=== PATIENT | male | born 1975 | race Caucasian/White ===

== ENCOUNTER 2017-08-22 12:18 | Inpatient (IN) | payer MEDICAID, OTHER ==
[2017-08-22] MEDS ORDERED: NS 1,000 ML IV ONE (12:38)
--- NOTE | 2017-08-22 12:38 | EDPHY ---
H & P Stated Complaint: sent by MD for leukemia treatment Time Seen by Provider: 08/22/17 12:30 HPI/ROS: CHIEF COMPLAINT: [ ] HISTORY OF PRESENT ILLNESS: [Need 4: Location, Duration, Severity, Quality, Context, Timing Modifying Factors, Associated S&S] REVIEW OF SYSTEMS: A comprehensive 10 point review of systems is otherwise negative aside from elements mentioned in the history of present illness. Source: Patient - Personal History Current Tetanus/Diphtheria Vaccine: Unsure Current Tetanus Diphtheria and Acellular Pertussis (TDAP): Unsure - Medical/Surgical History Hx Asthma: No Hx Chronic Respiratory Disease: No Hx Diabetes: No Hx Cardiac Disease: No Hx Renal Disease: No Hx Cirrhosis: No Hx Alcoholism: No Hx HIV/AIDS: No Hx Splenectomy or Spleen Trauma: No Other PMH: leukemia - Social History Smoking Status: Current some day smoker - Physical Exam Exam: General Appearance: [Alert, no distress] Eyes: [Pupils equal and round no pallor or injection] ENT, Mouth: [Mucous membranes moist] Respiratory: [There are no retractions, lungs are clear to auscultation] Cardiovascular: [Regular rate and rhythm] Gastrointestinal: [Abdomen is soft and nontender, no masses, bowel sounds normal] Neurological: [A&O, normal motor function, normal sensory exam, normal cranial nerves] Skin: [Warm and dry, no rashes] Musculoskeletal: [Neck is supple nontender] Extremities: [symmetrical, full range of motion] Psychiatric: [Patient is oriented X 3, there is no agitation] Constitutional: Initial Vital Signs Temperature (C) 37.2 C 08/22/17 12:25 Heart Rate 107 H 08/22/17 12:25 Respiratory Rate 20 08/22/17 12:25 Blood Pressure 118/83 H 08/22/17 12:25 O2 Sat (%) 99 08/22/17 12:25 O2 Delivery Mode Room Air Allergies/Adverse Reactions: No Known Allergies Allergy (Unverified 08/22/17 12:23) Home Medications: Medication Instructions Recorded Allopurinol 08/22/17 levOFLOXACIN 08/22/17 oxyCODONE CR 08/22/17
[2017-08-22 13:01] LABS: ABSOLUTE NRBC COUNT 0.09 10^3/uL (0-0.01); ADD DIFF? YES; ADD MORPH? YES; ATYPICAL LYMPHOCYTE FLAG 0 (0-99); FRAGMENT RBC FLAG 0 (0-99); HEMATOCRIT 23.9 % (40.0-51.0); HEMOGLOBIN 8.5 g/dL (13.7-17.5); LEFT SHIFT FLG 0 (0-99); LIPEMIA HEMOLYSIS FLAG 90 (0-99); MEAN CELL HEMOGLOBIN CONCENTR. 35.6 g/dL (32.4-36.7); MEAN CELL VOLUME 98.4 fL (81.5-99.8); MEAN PLATELET VOLUME 9.1 fL (8.7-11.7); PLATELET CLUMPS FLAG 0 (0-99); PLATELET COUNT 138 10^3/uL (150-400); RED BLOOD CELL COUNT 2.43 10^6/uL (4.40-6.38); RED CELL DISTRIBUTION WIDTH 15.2 % (11.5-15.2)
[2017-08-22 13:03] LABS: ADD SCAN? NO; NRBC-AUTO% 1.4 % (0.0-0.2)
[2017-08-22 13:17] LABS: ALANINE AMINOTRANSFERASE 33 IU/L (21-72); ALKALINE PHOSPHATASE 97 IU/L (38-126); ANION GAP 15 mEq/L (8-16); ASPARTATE AMINOTRANSFERASE 18 IU/L (17-59); BILIRUBIN,TOTAL 0.3 mg/dL (0.1-1.4); BILIRUBIN-CONJUGATED 0.2 mg/dL (0.0-0.5); BILIRUBIN-UNCONJUGATED 0.1 mg/dL (0.0-1.1); CALCIUM 9.3 mg/dL (8.5-10.4); CARBON DIOXIDE 24 mEq/l (22-31); CHLORIDE 101 mEq/L (97-110); CREATININE 1.1 mg/dL (0.7-1.3); GLOMERULAR FILTRATION RATE > 60; GLUCOSE 113 mg/dL (70-100); POTASSIUM 4.1 mEq/L (3.5-5.2); SODIUM 140 mEq/L (134-144); TOTAL PROTEIN 7.9 g/dL (6.3-8.2)
[2017-08-22 13:34] LABS: HYPOCHROMIA 2+; PLATELET ESTIMATE DECREASED (ADEQ)
[2017-08-22 13:54] LABS: INR 1.1 (0.83-1.16); PROTIME(PATIENT) 14.1 SEC (12.0-15.0)
[2017-08-22 13:55] LABS: APTT 31.7 SEC (23.0-38.0)
--- NOTE | 2017-08-22 14:23 | EDPHY ---
H & P Stated Complaint: sent by for leukemia treatment Time Seen by Provider: 08/22/17 12:30 HPI/ROS: CHIEF COMPLAINT: Fever, history of leukemia HISTORY OF PRESENT ILLNESS: The patient is referred to the emergency department by the on-call oncologist for evaluation of fever. The patient is a 42-year-old gentleman who was recently diagnosed with AML. 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 The patient developed a fever of 101.5 degrees at home. He had no symptoms of an acute cough, dysuria, vomiting or diarrhea. The patient denies any acute pain. The patient has had a past medical history significant for low back pain. The patient has had this evaluated by a spine service without significant pathology noted on MRI by his report. The patient denies any acute rash or arthralgias. REVIEW OF SYSTEMS: A comprehensive 10 point review of systems is otherwise negative aside from elements mentioned in the history of present illness. Source: Patient - Personal History Current Tetanus/Diphtheria Vaccine: Unsure Current Tetanus Diphtheria and Acellular Pertussis (TDAP): Unsure - Medical/Surgical History Hx Asthma: No Hx Chronic Respiratory Disease: No Hx Diabetes: No Hx Cardiac Disease: No Hx Renal Disease: No Hx Cirrhosis: No Hx Alcoholism: No Hx HIV/AIDS: No Hx Splenectomy or Spleen Trauma: No Other PMH: leukemia - Social History Smoking Status: Current some day smoker - Physical Exam Exam: General Appearance: Alert, no distress Eyes: Pupils equal and round no pallor or injection ENT, Mouth: Mucous membranes moist Respiratory: There are no retractions, lungs are clear to auscultation Cardiovascular: Regular rate and rhythm Gastrointestinal: Abdomen is soft and nontender, no masses, bowel sounds normal Neurological: A&O, normal motor function, normal sensory exam, normal cranial nerves Skin: Warm and dry, no rashes, no erythema or cellulitis surrounding bone marrow biopsy site Musculoskeletal: Neck is supple nontender Extremities: symmetrical, full range of motion Constitutional: Initial Vital Signs Temperature (C) 37.2 C 08/22/17 12:25 Heart Rate 107 H 08/22/17 12:25 Respiratory Rate 20 08/22/17 12:25 Blood Pressure 118/83 H 08/22/17 12:25 O2 Sat (%) 99 08/22/17 12:25 O2 Delivery Mode Room Air Allergies/Adverse Reactions: No Known Allergies Allergy (Unverified 08/22/17 12:23) Home Medications: Medication Instructions Recorded Allopurinol [Allopurinol 300 MG 300 mg PO DAILY 08/22/17 (RX)] levOFLOXACIN [levAQUIN (*)] 500 mg PO DAILY 08/22/17 oxyCODONE IR [Oxycodone Ir (*)] 5 mg PO .Q3-4H PRN 08/22/17 Medical Decision Making - Diagnostics Imaging Results: Imaging Impressions Chest X-Ray 08/22/17 12:38 Impression: Normal chest. ED Course/Re-evaluation: The patient presents to the ED with fever in the setting of recently diagnosed AML. The patient was seen in consultation by Dr. Powell from Oncology. The patient will be admitted to the hospital by Dr. Dorsey from the hospitalist service. In the emergency department, the patient had blood cultures x2 obtained. The patient has been taking Levaquin on a daily basis which will be continued at the recommendation of his oncologist. The patient's chest x-ray demonstrates no evidence of pneumonia. Urinalysis demonstrates no evidence of an infection, urine microscopy currently pending. 2:45 p.m.: The patient will be admitted to a medical-surgical floor under the care of the hospitalist service. Differential Diagnosis: Differential diagnosis considered includes neutropenic fever, pneumonia, urinary tract infection, bacteremia - Data Points Laboratory Results: Laboratory Results 08/22/17 12:45 08/22/17 12:45 08/22/17 08/22/17 08/22/17 12:45 12:45 12:45 WBC 6.36 10^3/uL 10^3/uL (3.80-9.50) RBC 2.43 10^6/uL L 10^6/uL (4.40-6.38) Hgb 8.5 g/dL L g/dL (13.7-17.5) Hct 23.9 % L % (40.0-51.0) MCV 98.4 fL fL (81.5-99.8) MCH 35.0 pg H pg (27.9-34.1) MCHC 35.6 g/dL g/dL (32.4-36.7) RDW 15.2 % % (11.5-15.2) Plt Count 138 10^3/uL L 10^3/uL (150-400) MPV 9.1 fL fL (8.7-11.7) Neut % (Auto) Not Reported Lymph % (Auto) Not Reported [place] % (Auto) Not Reported Eos % (Auto) Not Reported Baso % (Auto) Not Reported Nucleat RBC Rel Count 1.4 % H % (0.0-0.2) Absolute Neuts (auto) Not Reported Absolute Lymphs (auto) Not Reported Absolute Monos (auto) Not Reported Absolute Eos (auto) Not Reported Absolute Basos (auto) Not Reported Absolute Nucleated RBC 0.09 10^3/uL H 10^3/uL (0-0.01) Immature Gran % Not Reported Seg Neutrophils % 2 % % Lymphocytes % 59 % % Metamyelocytes % 1 % % Blast Cells % 38 % % Immature Gran # Not Reported Absolute Seg Neuts 0.13 10^/uL L 10^/uL (1.70-6.50) Absolute Lymphocytes 3.75 10^3/uL H 10^3/uL (1.00-3.00) Absolute Metamyelocyte 0.06 10^3/mL H 10^3/mL (0.00-0.00) Nucleated RBCs 1 /100 WBC H /100 WBC (0-0) Absolute Blast Cells 2.42 10^3/uL H 10^3/uL (0.00-0.00) Platelet Estimate DECREASED L (ADEQ) Hypochromasia 2+ H Smear Review By Pending PT 14.1 SEC SEC (12.0-15.0) INR 1.10 (0.83-1.16) APTT 31.7 SEC SEC (23.0-38.0) VBG Lactic Acid Sodium 140 mEq/L mEq/L (134-144) Potassium 4.1 mEq/L mEq/L (3.5-5.2) Chloride 101 mEq/L mEq/L (97-110) Carbon Dioxide 24 mEq/l mEq/l (22-31) Anion Gap 15 mEq/L mEq/L (8-16) BUN 17 mg/dL mg/dL (7-23) Creatinine 1.1 mg/dL mg/dL (0.7-1.3) Estimated GFR > 60 Glucose 113 mg/dL H mg/dL (70-100) Calcium 9.3 mg/dL mg/dL (8.5-10.4) Total Bilirubin 0.3 mg/dL mg/dL (0.1-1.4) Conjugated Bilirubin 0.2 mg/dL mg/dL (0.0-0.5) Unconjugated Bilirubin 0.1 mg/dL mg/dL (0.0-1.1) AST 18 IU/L IU/L (17-59) ALT 33 IU/L IU/L (21-72) Alkaline Phosphatase 97 IU/L IU/L (38-126) Total Protein 7.9 g/dL g/dL (6.3-8.2) Albumin 4.0 g/dL g/dL (3.5-5.0) 08/22/17 12:45 WBC RBC Hgb Hct MCV MCH MCHC RDW Plt Count MPV Neut % (Auto) Lymph % (Auto) Rusk % (Auto) Eos % (Auto) Baso % (Auto) Nucleat RBC Rel Count Absolute Neuts (auto) Absolute Lymphs (auto) Absolute Monos (auto) Absolute Eos (auto) Absolute Basos (auto) Absolute Nucleated RBC Immature Gran % Seg Neutrophils % Lymphocytes % Metamyelocytes % Blast Cells % Immature Gran # Absolute Seg Neuts Absolute Lymphocytes Absolute Metamyelocyte Nucleated RBCs Absolute Blast Cells Platelet Estimate Hypochromasia Smear Review By PT INR APTT VBG Lactic Acid 1.2 mmol/L mmol/L (0.7-2.1) Sodium Potassium Chloride Carbon Dioxide Anion Gap BUN Creatinine Estimated GFR Glucose Calcium Total Bilirubin Conjugated Bilirubin Unconjugated Bilirubin AST ALT Alkaline Phosphatase Total Protein Albumin Medications Given: Discontinued Medications Sodium Chloride (Ns) 1,000 mls @ 0 mls/hr IV ONCE ONE; Wide Open PRN Reason: Protocol Stop: 08/22/17 12:39 Last Admin: 08/22/17 13:15 Dose: 1,000 mls Departure - Departure Disposition: [facility] Inpatient Acute Clinical Impression: Neutropenic fever, Acute myeloid leukemia Condition: Fair
--- NOTE | 2017-08-22 14:26 | GCON ---
[f rep st] CONSULTATION NEW PATIENT CONSULT DATE OF CONSULTATION: 08/22/2017 REFERRING PHYSICIAN: Radha Dorsey MD REASON FOR ADMISSION: Acute myeloid leukemia. HISTORY OF PRESENT ILLNESS: The patient is a very pleasant 42-year-old man who was initially evaluated by Dr. Simon Winn on 08/20/2017 due to abnormal blood counts. Specifically, elevated blasts in his peripheral smear. He reported that, although he has been suffering from low back pain for many years , this has become more severe recently and was evaluated by his PCP with some additional blood work. Notably, MRI of his low back was negative per patient. Unfortunately, his peripheral blood smear showed anemia, leukopenia and 40% blasts at that time. The patient then saw Simon Winn and had a bone marrow biopsy, the flow cytometry of which confirms acute myeloid leukemia. His AML fish was negative but molecular testing is still pending. Simon Winn was planning on electively admitting this patient. this coming Thursday as he was very stable, however, he called me early this morning complaining of a fever of 101. The patient did take some Tylenol which brought the fever down and he feels well and denies any specific infectious symptoms. Specifically, he denies any cough, shortness of breath, bleeding, bruising, abdominal pain, dysuria or mouth sores. He is in very good health otherwise. His CBC today shows a white blood cell count of 6.36, ANC pending but previously was less than 300, hemoglobin 8.5, hematocrit 23.9, platelet count of a 138,000. All the other labs from today are pending. Patient has been taking allopurinol and Levaquin at home but otherwise has been taking oxycodone for his low back pain. PAST MEDICAL AND SURGICAL HISTORY: Unremarkable. Most recent MRI [facility] apparently showed no fracture other concerning findings. REVIEW OF SYSTEMS: As per HPI. Otherwise negative. FAMILY HISTORY: Pertinent for a fraternal grandmother with leukemia which she from. Maternal grandmother with a solid malignancy. SOCIAL HISTORY: Smokes cigarettes and marijuana occasionally. Drinks heavily on the weekends but has not had a drink in a few days. He lives with a roommate. 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 He does not have insurance. PHYSICAL EXAM: VITAL SIGNS: Currently show blood pressure 118/83, pulse of 107 respiration rate 20, O2 saturation 99% on room air, temperature 37.2. GENERAL: A young gentleman not in acute distress. Slightly pale appearing. HEENT: Anicteric. Oropharynx is clear. NECK: Supple. No cervical or supraclavicular lymphadenopathy. HEART: Sightly tachycardic, no rubs, murmurs or gallops. CHEST: Clear to auscultation bilaterally. ABDOMEN: Soft, nontender. Bowel sounds positive. No enlarged spleen or liver. LOWER EXTREMITIES: No edema. SKIN: No rash. NEUROLOGIC: Nonfocal, moving all extremities. LABS: As mentioned above. I will note his outpatient labs show him to be negative for hepatitis B, hepatitis C and HIV. His LDH was not initially elevated and his uric acid was also within normal limits. IMAGING: He is pending a chest x-ray here today. ASSESSMENT AND PLAN: A 42-year-old gentleman with newly diagnosed acute myeloid leukemia being admitted due to neutropenic fever and will initiate induction chemotherapy. 1. Neutropenic fever. Either due to the underlying bone marrow process or infection. He is getting blood cultures x2, urinalysis and chest x-ray. He has been empirically covered with Levaquin 500 daily which I will continue. Will also add fluconazole 200 mg daily and acyclovir 400 mg p.o. twice daily, to cover for fungal and viral infections respectively. Currently, he has no evidence of sepsis and is very stable. Will continue to monitor and broaden coverage as needed. 2. Acute myeloid leukemia, newly diagnosed. Admitted for induction chemotherapy with 7 + 3. He will get cytarabine infused over the next 7 days and idarubicin over the next 3 days. Premeds for nausea & infusion reactions were written for today. We will follow him closely for tumor lysis syndrome and other lab abnormalities going forward. Any blood products required going orward need to be irradiated and initially CMV-negative, although I am checking his CMV titers today. Would not transfuse unless hemoglobin 7 or less or patient has symptoms. Would not transfuse platelets unless less than 10 or bleeding. Will get a PICC line placed today and echocardiogram to evaluate his baseline ejection fraction . His chemotherapy orders were written for and we will obtain consent. Briefly, I discussed side effects of chemotherapy with him which include, but not limited to, nausea, vomiting, myelosuppression, risk for opportunistic infections, alopecia, fatigue and cardiomyopathy as well as chemotherapy- induced bone marrow disorders. The patient agrees with the plan going forward. He declined sperm banking. We will continue to follow him very closely. He will be admitted as in an inpatient for the next few weeks. 3. Deep vein thrombosis prophylaxis. Initially, should go ahead and give Lovenox 40 subcutaneously daily, but will watch platelets closely and would hold if they drop significantly (<50k) The patient is in agreement with plan. Hope to get chemotherapy, cycle 1, day 1 , initiated tomorrow, 08/23/2017. /[id number]/MODL MTDD
[2017-08-22] MEDS ORDERED: oxyCODONE IR 5 MG TAB PO PRN ×2 (14:29→15:23)
[2017-08-22 14:45] LABS: COLOR YELLOW; LEUKOCYTE ESTERASE,URINE NEGATIVE (NEGATIVE); NITRITE,URINE NEGATIVE (NEGATIVE)
[2017-08-22 14:47] LABS: MUCUS 1+ /lpf (NONE-1+)
[2017-08-22] MEDS ORDERED: ALLOPURINOL 300 MG TAB PO SCH (15:00)
[2017-08-22 16:04] LABS: LACTATE DEHYDROGENASE 429 IU/L (313-618); URIC ACID 5.1 mg/dL (3.5-8.5)
[2017-08-22] MEDS: FLUCONAZOLE 100 MG TAB PO SCH (16:06)
[2017-08-22] MEDS: oxyCODONE IR 5 MG TAB PO PRN ×3 (16:07→22:57)
[2017-08-22] MEDS: ALLOPURINOL 300 MG TAB PO SCH (16:07)
--- NOTE | 2017-08-22 16:28 | GHP ---
[f rep st] HISTORY AND PHYSICAL DATE OF ADMISSION: 08/22/2017 CHIEF COMPLAINT: Fever. HISTORY: The patient is a 42-year-old male who had a bone marrow biopsy with Dr. Winn 2 days ago and was diagnosed with AML. Plan was for admission on Thursday for elective induction of chemotherapy . However, last night he had a high fever to 101 and so instead has presented through the emergency room to be admitted and chemotherapy likely to be initiated during this hospitalization. He has really been feeling unwell for a few weeks. Had a sinus infection and a strep throat would no t go way. Also had acute on chronic low back pain. Eventually his primary care doctor checked some labs and found him to have 40% blasts. He had an MRI of the spine that was negative. Last night he had a fever to 101 and had some associated chills. This is not the first time he has f elt chills like that, but he was monitoring it more closely since he just had the bone marrow biopsy and monitoring for fever was on the discharge instructions. He checked his fever at home, measured a t 101. He is otherwise without complaints at this time. PAST MEDICAL HISTORY: Negative. MEDICATIONS: None. ALLERGIES: No known drug allergies. SOCIAL HISTORY: Occasional tobacco, occasional marijuana. Drinks alcohol on the weekends. Lives wi th a roommate. 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 REVIEW OF SYSTEMS: A complete review of systems was obtained. Review of systems is negative regardi ng constitutional, HEENT, GI, pulmonary, cardiovascular, , hematology, skin, musculoskeletal, endoc rine, psych except for positives and negatives as otherwise noted in the HPI. FAMILY HISTORY: Paternal grandmother with leukemia. PHYSICAL EXAMINATION: GENERAL: Well-developed, well-nourished male, in no acute distress. VITAL SI GNS: Temperature 37.2, pulse 107, blood pressure 118/83, saturating 99% room air. HEENT: Eyes: No rmal conjunctivae. Pupils react to light. ENT: Normal ears and nose. Hearing intact. Normal lips and teeth. Oropharynx moist. NECK: Trachea midline. No thyromegaly. CHEST: Normal respiratory effort. Lungs clear to auscultation bilaterally. CARDIOVASCULAR: Regular rhythm. No murmur. No low er extremity edema. ABDOMEN: Soft, nontender. No hepatosplenomegaly. SKIN: Warm, dry, intact. N o rash. MUSCULOSKELETAL: No cyanosis or clubbing. Strength 5/5 upper and lower extremities. NEURO LOGIC: Cranial nerves intact. Normal sensation to light touch. PSYCH: Alert and oriented x3. Norm al affect. Normal judgment and insight. Normal memory. LABORATORY: White count 6.36, hematocrit 23.9, platelets 138. Sodium 140, potassium 4.1, chloride 1 01, bicarb 24, BUN 17, creatinine 1.1, glucose 113. LFTs are negative. Urinalysis negative. Lacta te 1.2. Chest x-ray is negative. This case was discussed with Dr. Ginny Powell of Oncology. She has arrang ed for initiation of chemotherapy. ASSESSMENT/PLAN: 1. Neutropenic fever. Blood cultures x2 have been sent. Per Dr. Powell continue Levaquin plus fl uconazole plus acyclovir. 2. AML, new diagnosis. Induction chemotherapy to initiate. Will watch for signs of tumor lysis syn drome and continue allopurinol. Any blood transfusions he gets should be CMV negative irradiated blo od. A baseline echocardiogram has been ordered. 3. Deep venous thrombosis prophylaxis. He is low risk. CODE STATUS: Full. ADMISSION STATUS: Will admit to inpatient. Per Oncology anticipated length of hospitalization 3-6 w [facility]. /[id number]/MODL
--- NOTE | 2017-08-22 16:58 | PDMN ---
Medical Necessity Medical necessity: C/M review: Patient meets INPT criteria per MCG under Systemic of infectious condition GRG, M-87 Chemotherapy; Acute neutrapenic fever of unclear etiology, new dx acute myelocytic leukemia requiting planned induction chemotherapy (IV Cytarbine Q 24 hrs. x 7 bags, IV Idarubicin daily x 3 bags), ongoing IV fluids, oral Levaquin, Diflucan. MD anticipates > 2 MN LOS for ongoing med nec for eval and TX of above.
[2017-08-22] MEDS: ACYCLOVIR 400 MG TAB PO SCH (19:51)
[2017-08-22] MEDS: PROCHLORPERAZINE MALEATE 10 MG TAB PO PRN (22:58)
[2017-08-23] MEDS: oxyCODONE IR 5 MG TAB PO PRN ×3 (01:59→12:04)
[2017-08-23 05:19] LABS: ABSOLUTE NRBC COUNT 0.09 10^3/uL (0-0.01); ADD DIFF? YES; ADD MORPH? YES; ATYPICAL LYMPHOCYTE FLAG 10 (0-99); FRAGMENT RBC FLAG 0 (0-99); HEMATOCRIT 20.3 % (40.0-51.0); HEMOGLOBIN 7.2 g/dL (13.7-17.5); LEFT SHIFT FLG 0 (0-99); LIPEMIA HEMOLYSIS FLAG 90 (0-99); MEAN CELL HEMOGLOBIN 35.6 pg (27.9-34.1); MEAN CELL HEMOGLOBIN CONCENTR. 35.5 g/dL (32.4-36.7); MEAN CELL VOLUME 100.5 fL (81.5-99.8); MEAN PLATELET VOLUME 8.9 fL (8.7-11.7); PLATELET CLUMPS FLAG 0 (0-99); PLATELET COUNT 124 10^3/uL (150-400); RED BLOOD CELL COUNT 2.02 10^6/uL (4.40-6.38); RED CELL DISTRIBUTION WIDTH 15.3 % (11.5-15.2)
[2017-08-23 05:23] LABS: NRBC-AUTO% 1.4 % (0.0-0.2)
[2017-08-23 05:24] LABS: ADD SCAN? NO
[2017-08-23 05:28] LABS: ALANINE AMINOTRANSFERASE 36 IU/L (21-72); ALBUMIN 3.6 g/dL (3.5-5.0); ALKALINE PHOSPHATASE 92 IU/L (38-126); ANION GAP 13 mEq/L (8-16); ASPARTATE AMINOTRANSFERASE 17 IU/L (17-59); BILIRUBIN,TOTAL 0.2 mg/dL (0.1-1.4); BILIRUBIN-CONJUGATED 0.1 mg/dL (0.0-0.5); BILIRUBIN-UNCONJUGATED 0.1 mg/dL (0.0-1.1); CALCIUM 8.9 mg/dL (8.5-10.4); CARBON DIOXIDE 23 mEq/l (22-31); CHLORIDE 101 mEq/L (97-110); CREATININE 0.9 mg/dL (0.7-1.3); GLOMERULAR FILTRATION RATE > 60; GLUCOSE 108 mg/dL (70-100); POTASSIUM 4.5 mEq/L (3.5-5.2); SODIUM 137 mEq/L (134-144); TOTAL PROTEIN 7.1 g/dL (6.3-8.2)
[2017-08-23 06:00] LABS: MACROCYTES 1+; POLYCHROMASIA 1+
[2017-08-23 06:01] LABS: PLATELET ESTIMATE DECREASED (ADEQ)
--- NOTE | 2017-08-23 07:52 | ECHO ---
[email or web address] [address] [address] Main: [phone] Fax: Transthoracic Echocardiogram Name: AGNES MASCORRO MR#: [id number] Study Date: 08/22/2017 Study Time: 02:11 PM Date of : 1975 Age: 42 year(s) Height: 172.7 cm (68 in.) Weight: 79.38 kg (175 lb.) BSA: 1.93 m2 Gender: Male Examination: Echo Indication: Acute leukemia starting anthracycline based chemotherapy in am Image Quality: Contrast: Requested by: Ginny Powell BP: / Heart Rate: Rhythm: Indication: Acute leukemia starting anthracycline based chemotherapy in am Procedure Staff Propellant Assembler: Taylor Harris Reading Physician: Joby Lion Requesting Provider: Conclusions: 1)Normal LV size and systolic function with a LVEF of 65% and normal wall motions. 2)Mild diastolic dysfunction noted. 3)Mild left atrial enlargement noted. 4)Mild MR without MV prolapse. 5)Mild TR noted. 6)Mildly enlarged ascending thoracic aorta noted (3.9cm). Measurements: Chambers Valvular Assessment AV/MV Valvular Assessment TV/PV Normal Normal Normal Name Value Range Name Value Range Name Value Range Ao Mecca (MM): 3.9 cm (2.2 cm-3.7 AV meanP mmHg ( - ) TR Vmax: 2.16 mm/s ( - ) cm) MV E Vmax: 0.66 m/s ( - ) TR PGmax: 19 mmHg ( - ) IVSd (2D): 0.9 cm (0.6 cm-1.1 MV A Vmax: 0.42 m/s ( - ) syst. PAP: 24 mmHg ( - ) cm) MV E/A: 1.57 ( - ) LVDd (2D): 5.5 cm (4.2 cm-5.9 cm) LVDs (2D): 3.1 cm (2.1 cm-4 cm) LVPWd (2D): 1.0 cm (0.6 cm-1 cm) LVEF (BP): 65 % (>=55 %) Continued Measurements: Chambers Valvular Assessment AV/MV Valvular Assessment TV/PV Name Value Name Value Name Value LADs: 4.2 cm MV E/E' Septal: 7.50 CVP (est.): 5 mmHg LADs Lon.5 cm MV E/E' Lateral: 5.80 Patient: AGNES MASCORRO Study Date: 08/22/2017 Page 1 of 2 02:11 PM LA Area: 16.0 cm2 Findings: Left Ventricle: Normal size left ventricle. No LV hypertrophy. Normal global systolic LV function. EF is 65 %. No regional wall motion abnormality. Grade 1 diastolic dysfunction (abnormal relaxation). Right Ventricle: Normal size right ventricle. Left Atrium: The left atrium is mildly dilated. Right Atrium: The right atrium is normal in size. Mitral Valve: The mitral valve is normal in appearance and function. Mild mitral valve regurgitation is present. Aortic Valve: The aortic valve is normal in appearance and function. Tricuspid Valve: The tricuspid valve is normal in appearance and function. Mild tricuspid regurgitation is present. Pulmonic Valve: The pulmonic valve is normal in appearance and function. Trivial to mild pulmonic valve regurgitation. Aorta: The aorta is normal. Mild aortic root dilatation. Pericardium: No pericardial effusion. (No Signature Object) Patient: AGNES MASCORRO Study Date: 08/22/2017 Page 2 of 2 02:11 PM [id number]
[2017-08-23] MEDS: FLUCONAZOLE 100 MG TAB PO SCH (08:25)
[2017-08-23] MEDS: ALLOPURINOL 300 MG TAB PO SCH (08:25)
[2017-08-23] MEDS: ACYCLOVIR 400 MG TAB PO SCH ×2 (08:25→20:57)
[2017-08-23] MEDS ORDERED: ALLOPURINOL 300 MG TAB PO SCH (09:00)
[2017-08-23] MEDS ORDERED: NS 1,000 ML IV ONE (10:00)
[2017-08-23] MEDS ORDERED: DEXAMETHASONE SOD PHOSPHATE 10 MG in NS 50 ML IV ONE (10:30)
[2017-08-23] MEDS ORDERED: PALONOSETRON HCL 0.25 MG/5 ML VIAL IVP ONE (10:30)
[2017-08-23] MEDS: IDARUBICIN IV SCH (10:41)
--- NOTE | 2017-08-23 10:55 | SOAPPROG ---
SOAP Progress Note Assessment/Plan: Assessment/Plan: 42 yo man w newly dx acute myeloid leukemia admitted for induction w neutropenic fever 1. AML - C1D1 7+3 today Echo wnl PICC line in RUE chemo consent done infusion has started and tolerating well monitor tumor lysis labs daily along w CBC and CMP transfuse irradiated blood products (as well as CMV negative until titers come back) Transfuse PRBC for Hgb<7 and platelets <10k or bleeding ppx w levaquin, fluconazole, and acyclovir will continue cont allopurinol for now 2. Fever - none since Thursday morning infectious w/u so far negative cont on empiric coverage 3. Back pain - likely acute on chronic from AML cont oxy prn 08/23/17 10:51 Subjective: No acute events no fevers overnight no new Sx Objective: Vital Signs Temp Pulse Resp BP Pulse Ox 36.9 C 109 H 16 121/77 H 95 08/23/17 07:49 08/23/17 07:49 08/23/17 07:49 08/23/17 07:49 08/23/17 07:49 Laboratory Results 08/23/17 05:10 08/23/17 05:10 08/22/17 08/23/17 08/24/17 05:59 05:59 05:59 Intake Total 600 Output Total 1550 700 Balance -950 -700 PT 14.1 SEC (12.0-15.0) 08/22/17 12:45 INR 1.10 (0.83-1.16) 08/22/17 12:45 Gen - NAD HEENT - pale conjunctiva, no mouth sores CV - RRR Chest - clear Abd - soft, NT Ext - no edema Neuro - nonfocal Skin - no rash ICD10 Worksheet Patient Problems: Problems Problem Status Onset Acute myeloid leukemia Acute Neutropenic fever Acute
[2017-08-23] MEDS ORDERED: NS IV SCH (11:00)
[2017-08-23] MEDS ORDERED: CYTARABINE IV SCH (11:00)
[2017-08-23] MEDS: CYTARABINE IV SCH (11:06)
[2017-08-23] MEDS: NS IV SCH (11:06)
--- NOTE | 2017-08-23 14:29 | HOSPPROG ---
Hospitalist Progress Note Assessment/Plan: * AML - induction chemo -watch for tumor lysis - BID labs -on allopurinol * Neutropenic fever -empiric Levaquin, fluconazole, acyclovir * Anemia -transfuse Hg<7, plt < 10 -irradiated, CMV negative blood * Back pain - outpatient MRI negative -likely due to AML Subjective: no complaints other than inability to go outside for 1 week Objective: Vital Signs Temp Pulse Resp BP Pulse Ox 36.9 C 99 16 117/79 92 08/23/17 11:22 08/23/17 11:22 08/23/17 11:22 08/23/17 11:22 08/23/17 11:22 Laboratory Results 08/23/17 05:10 08/23/17 05:10 08/22/17 08/23/17 08/24/17 05:59 05:59 05:59 Intake Total 600 Output Total 1550 700 Balance -950 -700 PT 14.1 SEC (12.0-15.0) 08/22/17 12:45 INR 1.10 (0.83-1.16) 08/22/17 12:45 ECHO - normal EF - Physical Exam Constitutional: no apparent distress, appears nourished, not in pain Cardiovascular: regular rate and rhythym, no murmur, rub, or gallop Respiratory: no respiratory distress, no rales or rhonchi, clear to auscultation Gastrointestinal: normoactive bowel sounds, soft, non-tender abdomen, no palpable masses Skin: no rashes or abrasions, no fluctuance, no induration Neurologic: AAOx3, sensation intact bilaterally Psychiatric: interacting appropriately, not anxious, not encephalopathic, thought process linear ICD10 Worksheet Patient Problems: Problems Problem Status Onset Acute myeloid leukemia Acute Neutropenic fever Acute
--- NOTE | 2017-08-23 16:30 | ASMTCMCOM ---
CM Note CM Note Notes: Pt admitted with neutropenic 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 Chemo planned. May be here for up to 3-6 weeks. CM will follow for any d/c needs. Date Signed: 08/23/2017 04:30 PM Electronically Signed By:JOSÉ Slade
[2017-08-23] MEDS: NS 1,000 ML IV SCH (18:29)
[2017-08-23 20:58] LABS: ABSOLUTE NRBC COUNT 0.05 10^3/uL (0-0.01); ADD DIFF? YES; ADD MORPH? YES; ATYPICAL LYMPHOCYTE FLAG 0 (0-99); FRAGMENT RBC FLAG 0 (0-99); HEMOGLOBIN 7.2 g/dL (13.7-17.5); LEFT SHIFT FLG 0 (0-99); LIPEMIA HEMOLYSIS FLAG 90 (0-99)
[2017-08-23 21:38] LABS: HEMATOCRIT 20.5 % (40.0-51.0); MEAN CELL HEMOGLOBIN 35.5 pg (27.9-34.1); MEAN CELL HEMOGLOBIN CONCENTR. 35.1 g/dL (32.4-36.7); MEAN PLATELET VOLUME 8.8 fL (8.7-11.7); PLATELET CLUMPS FLAG 10 (0-99); PLATELET COUNT 133 10^3/uL (150-400); RED BLOOD CELL COUNT 2.03 10^6/uL (4.40-6.38); RED CELL DISTRIBUTION WIDTH 15.1 % (11.5-15.2)
[2017-08-23 21:47] LABS: ALANINE AMINOTRANSFERASE 31 IU/L (21-72); ALBUMIN 3.7 g/dL (3.5-5.0); ALKALINE PHOSPHATASE 93 IU/L (38-126); ANION GAP 14 mEq/L (8-16); ASPARTATE AMINOTRANSFERASE 23 IU/L (17-59); BILIRUBIN,TOTAL 0.3 mg/dL (0.1-1.4); CALCIUM 9.2 mg/dL (8.5-10.4); CARBON DIOXIDE 22 mEq/l (22-31); CHLORIDE 102 mEq/L (97-110); CREATININE 0.8 mg/dL (0.7-1.3); GLOMERULAR FILTRATION RATE > 60; GLUCOSE 162 mg/dL (70-100); LACTATE DEHYDROGENASE 551 IU/L (313-618); POTASSIUM 4.7 mEq/L (3.5-5.2); SODIUM 138 mEq/L (134-144); TOTAL PROTEIN 7.4 g/dL (6.3-8.2); URIC ACID 3.8 mg/dL (3.5-8.5)
[2017-08-23 21:51] LABS: ADD SCAN? NO; NRBC-AUTO% 1.3 % (0.0-0.2)
[2017-08-23 22:24] LABS: MACROCYTES 1+; POLYCHROMASIA 1+
[2017-08-23 22:25] LABS: PLATELET ESTIMATE DECREASED (ADEQ)
[2017-08-24 05:22] LABS: ABSOLUTE NRBC COUNT 0.04 10^3/uL (0-0.01); ADD DIFF? NO; ADD MORPH? YES; ADD SCAN? YES; ATYPICAL LYMPHOCYTE FLAG 0 (0-99); FRAGMENT RBC FLAG 0 (0-99); HEMATOCRIT 18.9 % (40.0-51.0); LEFT SHIFT FLG 0 (0-99); LIPEMIA HEMOLYSIS FLAG 90 (0-99); MEAN CELL HEMOGLOBIN 34.4 pg (27.9-34.1); MEAN CELL HEMOGLOBIN CONCENTR. 33.9 g/dL (32.4-36.7); MEAN CELL VOLUME 101.6 fL (81.5-99.8); MEAN PLATELET VOLUME 9.3 fL (8.7-11.7); PLATELET CLUMPS FLAG 10 (0-99); PLATELET COUNT 125 10^3/uL (150-400); RED BLOOD CELL COUNT 1.86 10^6/uL (4.40-6.38); RED CELL DISTRIBUTION WIDTH 15.7 % (11.5-15.2)
[2017-08-24 05:25] LABS: HEMOGLOBIN 6.4 g/dL (13.7-17.5)
[2017-08-24 05:33] LABS: ALANINE AMINOTRANSFERASE 36 IU/L (21-72); ALBUMIN 3.3 g/dL (3.5-5.0); ALKALINE PHOSPHATASE 85 IU/L (38-126); ANION GAP 12 mEq/L (8-16); ASPARTATE AMINOTRANSFERASE 16 IU/L (17-59); BILIRUBIN,TOTAL 0.2 mg/dL (0.1-1.4); CALCIUM 9.2 mg/dL (8.5-10.4); CARBON DIOXIDE 24 mEq/l (22-31); CHLORIDE 106 mEq/L (97-110); CREATININE 0.7 mg/dL (0.7-1.3); GLOMERULAR FILTRATION RATE > 60; GLUCOSE 140 mg/dL (70-100); LACTATE DEHYDROGENASE 355 IU/L (313-618); POTASSIUM 4.6 mEq/L (3.5-5.2); SODIUM 142 mEq/L (134-144); URIC ACID 4.4 mg/dL (3.5-8.5)
[2017-08-24 05:43] LABS: SCAN POSITIVE
[2017-08-24 05:51] LABS: MACROCYTES 1+; PLATELET ESTIMATE DECREASED (ADEQ); POLYCHROMASIA 1+
--- NOTE | 2017-08-24 08:44 | SOAPPROG ---
SOAP Progress Note Assessment/Plan: Assessment: SOAP Progress Note Assessment/Plan: Assessment/Plan: 42 yo man w newly dx acute myeloid leukemia admitted for induction w neutropenic fever 1. AML - C1D2 7+3 today monitor tumor lysis labs daily along w CBC and CMP. Phos up a bit, on allopurinol. 2. Pancytopenia-transfuse irradiated blood products (as well as CMV negative until titers come back) Transfuse PRBC today for Hgb<7 (6.4 today) and platelets <10k or bleeding 3. Fever - none since Thursday morning infectious w/u so far negative cont on empiric coverage with levoquin and prophylactic acyclovir and fluconazole. 4. Back pain-no pain today. Subjective: No back pain today. No nausea. Feels well. Objective: Vital Signs Temp Pulse Resp BP Pulse Ox 36.5 C 84 18 116/66 94 08/24/17 08:12 08/24/17 08:12 08/24/17 08:12 08/24/17 08:12 08/24/17 08:12 Laboratory Results 08/24/17 05:15 08/24/17 05:15 08/23/17 08/24/17 08/25/17 05:59 05:59 05:59 Intake Total 600 4207.5 Output Total 1550 3800 Balance -950 407.5 PT 14.1 SEC (12.0-15.0) 08/22/17 12:45 INR 1.10 (0.83-1.16) 08/22/17 12:45 Physical Exam - Physical Exam General Appearance: alert, no apparent distress EENT: pharynx normal Neck: supple Respiratory: lungs clear Cardiac/Chest: regular rate, rhythm Abdomen: non-tender, soft Skin: other (PICC in right arm, no signs of infection) Extremities: No pedal edema Neuro/Psych: alert, normal mood/affect, oriented x 3 ICD10 Worksheet Patient Problems: Problems Problem Status Onset Acute myeloid leukemia Acute Neutropenic fever Acute
[2017-08-24] MEDS: ACYCLOVIR 400 MG TAB PO SCH ×2 (08:49→20:31)
[2017-08-24] MEDS: FLUCONAZOLE 100 MG TAB PO SCH (08:49)
[2017-08-24] MEDS: ALLOPURINOL 300 MG TAB PO SCH (08:49)
[2017-08-24] MEDS: oxyCODONE IR 5 MG TAB PO PRN ×3 (08:53→20:33)
[2017-08-24] MEDS: IDARUBICIN IV SCH (11:41)
[2017-08-24] MEDS: CYTARABINE IV SCH (11:47)
[2017-08-24] MEDS: NS IV SCH (11:47)
--- NOTE | 2017-08-24 15:39 | HOSPPROG ---
Hospitalist Progress Note Assessment/Plan: * AML - induction chemo -watch for tumor lysis - BID labs -on allopurinol * Neutropenic fever -empiric Levaquin, fluconazole, acyclovir * Anemia -transfuse Hg<7, plt < 10 -irradiated, CMV negative blood * Back pain - outpatient MRI negative -likely due to AML * CMV IgM positive - suggests recent infection Subjective: No complaints, still feels quite well Objective: Vital Signs Temp Pulse Resp BP Pulse Ox 36.8 C 88 18 116/71 95 08/24/17 12:00 08/24/17 12:00 08/24/17 12:00 08/24/17 12:00 08/24/17 12:00 Laboratory Results 08/24/17 05:15 08/24/17 05:15 08/23/17 08/24/17 08/25/17 05:59 05:59 05:59 Intake Total 600 4207.5 Output Total 1550 3800 Balance -950 407.5 PT 14.1 SEC (12.0-15.0) 08/22/17 12:45 INR 1.10 (0.83-1.16) 08/22/17 12:45 - Physical Exam Constitutional: no apparent distress, appears nourished, not in pain Cardiovascular: regular rate and rhythym, no murmur, rub, or gallop Respiratory: no respiratory distress, no rales or rhonchi, clear to auscultation Gastrointestinal: normoactive bowel sounds, soft, non-tender abdomen, no palpable masses Skin: no rashes or abrasions, no fluctuance, no induration Neurologic: AAOx3, sensation intact bilaterally Psychiatric: interacting appropriately, not anxious, not encephalopathic, thought process linear ICD10 Worksheet Patient Problems: Problems Problem Status Onset Acute myeloid leukemia Acute Neutropenic fever Acute
[2017-08-24 21:14] LABS: ABSOLUTE NRBC COUNT 0.02 10^3/uL (0-0.01); ADD DIFF? YES; ADD MORPH? NO; ATYPICAL LYMPHOCYTE FLAG 0 (0-99); FRAGMENT RBC FLAG 0 (0-99); HEMATOCRIT 20.9 % (40.0-51.0); HEMOGLOBIN 7.4 g/dL (13.7-17.5); LEFT SHIFT FLG 0 (0-99); LIPEMIA HEMOLYSIS FLAG 90 (0-99); MEAN CELL HEMOGLOBIN 34.9 pg (27.9-34.1); MEAN CELL HEMOGLOBIN CONCENTR. 35.4 g/dL (32.4-36.7); MEAN CELL VOLUME 98.6 fL (81.5-99.8); MEAN PLATELET VOLUME 9.5 fL (8.7-11.7); NRBC-AUTO% 0.9 % (0.0-0.2); PLATELET CLUMPS FLAG 0 (0-99); PLATELET COUNT 120 10^3/uL (150-400); RED BLOOD CELL COUNT 2.12 10^6/uL (4.40-6.38); RED CELL DISTRIBUTION WIDTH 16.8 % (11.5-15.2)
[2017-08-24 21:16] LABS: ALANINE AMINOTRANSFERASE 30 IU/L (21-72); ALBUMIN 3.4 g/dL (3.5-5.0); ALKALINE PHOSPHATASE 71 IU/L (38-126); ANION GAP 12 mEq/L (8-16); ASPARTATE AMINOTRANSFERASE 17 IU/L (17-59); CALCIUM 8.6 mg/dL (8.5-10.4); CARBON DIOXIDE 24 mEq/l (22-31); CHLORIDE 105 mEq/L (97-110); CREATININE 0.9 mg/dL (0.7-1.3); GLOMERULAR FILTRATION RATE > 60; GLUCOSE 126 mg/dL (70-100); LACTATE DEHYDROGENASE 361 IU/L (313-618); POTASSIUM 3.9 mEq/L (3.5-5.2); SODIUM 141 mEq/L (134-144); TOTAL PROTEIN 6.6 g/dL (6.3-8.2); URIC ACID 4.2 mg/dL (3.5-8.5)
[2017-08-24 21:28] LABS: BILIRUBIN,TOTAL < 0.1 mg/dL (0.1-1.4)
[2017-08-24 22:03] LABS: ADD SCAN? NO
[2017-08-24 22:56] LABS: MICROCYTES 1+; PLATELET ESTIMATE DECREASED (ADEQ); POLYCHROMASIA 1+
[2017-08-24] MEDS: NS 1,000 ML IV SCH (23:31)
[2017-08-25] MEDS: oxyCODONE IR 5 MG TAB PO PRN ×3 (05:12→23:36)
[2017-08-25 05:34] LABS: ADD DIFF? YES; ADD MORPH? YES; ATYPICAL LYMPHOCYTE FLAG 0 (0-99); FRAGMENT RBC FLAG 0 (0-99); HEMATOCRIT 19.4 % (40.0-51.0); LEFT SHIFT FLG 0 (0-99); LIPEMIA HEMOLYSIS FLAG 90 (0-99); MEAN CELL HEMOGLOBIN 34.4 pg (27.9-34.1); MEAN CELL HEMOGLOBIN CONCENTR. 34.5 g/dL (32.4-36.7); MEAN CELL VOLUME 99.5 fL (81.5-99.8); MEAN PLATELET VOLUME 8.9 fL (8.7-11.7); PLATELET CLUMPS FLAG 0 (0-99); PLATELET COUNT 98 10^3/uL (150-400); RED BLOOD CELL COUNT 1.95 10^6/uL (4.40-6.38); RED CELL DISTRIBUTION WIDTH 17.2 % (11.5-15.2)
[2017-08-25 05:37] LABS: ADD SCAN? NO; HEMOGLOBIN 6.7 g/dL (13.7-17.5)
[2017-08-25 06:08] LABS: ALANINE AMINOTRANSFERASE 30 IU/L (21-72); ALKALINE PHOSPHATASE 65 IU/L (38-126); ANION GAP 11 mEq/L (8-16); ASPARTATE AMINOTRANSFERASE 15 IU/L (17-59); CALCIUM 8.4 mg/dL (8.5-10.4); CARBON DIOXIDE 23 mEq/l (22-31); CHLORIDE 107 mEq/L (97-110); CREATININE 0.8 mg/dL (0.7-1.3); GLOMERULAR FILTRATION RATE > 60; GLUCOSE 97 mg/dL (70-100); LACTATE DEHYDROGENASE 320 IU/L (313-618); SODIUM 141 mEq/L (134-144); TOTAL PROTEIN 5.8 g/dL (6.3-8.2)
[2017-08-25 06:23] LABS: BILIRUBIN,TOTAL < 0.1 mg/dL (0.1-1.4)
[2017-08-25 06:58] LABS: PLATELET ESTIMATE DECREASED (ADEQ)
--- NOTE | 2017-08-25 09:09 | SOAPPROG ---
SOAP Progress Note Assessment/Plan: Assessment: SOAP Progress Note Assessment/Plan: Assessment/Plan: 42 yo man w newly dx acute myeloid leukemia admitted for induction w neutropenic fever 1. AML - C1D3 7+3 today Labs consistent with mild tumor lysis labs. Phos up a bit, calcium slightly down , on allopurinol. 2. Pancytopenia-transfuse irradiated blood products/CMV negative. Transfuse PRBC today for Hgb<7 (6.7 today) and platelets <10k or bleeding 3. Fever - none since Thursday morning infectious w/u so far negative cont on empiric coverage with levoquin and prophylactic acyclovir and fluconazole. 4. Back pain-having some more pain today. 5. CMV serologies-interestingly suggest recent CMV infection, without IgG response. Will use CMV negative products for now and discuss with ID. 08/25/17 09:06 Subjective: Back pain has come back a bit. some burping last night, but no nausea Objective: Vital Signs Temp Pulse Resp BP Pulse Ox 36.8 C 83 16 98/62 L 92 08/25/17 04:00 08/25/17 04:00 08/25/17 04:00 08/25/17 04:00 08/25/17 04:00 Laboratory Results 08/25/17 05:20 08/25/17 05:20 08/24/17 08/25/17 08/26/17 05:59 05:59 05:59 Intake Total 4207.5 350 Output Total 3800 Balance 407.5 350 PT 14.1 SEC (12.0-15.0) 08/22/17 12:45 INR 1.10 (0.83-1.16) 08/22/17 12:45 Physical Exam - Physical Exam General Appearance: alert, no apparent distress EENT: pharynx normal Neck: supple Respiratory: lungs clear Abdomen: non-tender, soft Extremities: No pedal edema Neuro/Psych: alert, normal mood/affect ICD10 Worksheet Patient Problems: Problems Problem Status Onset Acute myeloid leukemia Acute Neutropenic fever Acute
[2017-08-25] MEDS: ALLOPURINOL 300 MG TAB PO SCH (09:57)
[2017-08-25] MEDS: ACYCLOVIR 400 MG TAB PO SCH ×2 (09:57→21:26)
[2017-08-25] MEDS: FLUCONAZOLE 100 MG TAB PO SCH (09:57)
[2017-08-25] MEDS: CYTARABINE IV SCH (13:15)
[2017-08-25] MEDS: NS IV SCH (13:15)
[2017-08-25] MEDS: IDARUBICIN IV SCH (13:19)
--- NOTE | 2017-08-25 16:43 | ASMTCMCOM ---
CM Note CM Note Notes: Patient here for chemo infusion. Patient not feeling well today to spend time talking. Patient having some adiel C/M contacted [facility] regarding Medicaid. 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 Case management will continue to follow. Date Signed: 08/25/2017 04:42 PM Electronically Signed By:JOSÉ Fabian
--- NOTE | 2017-08-25 18:11 | HOSPPROG ---
Hospitalist Progress Note Assessment/Plan: 42 yo M with AML here for induction chemo * AML - induction chemo -watch for tumor lysis - BID labs -on allopurinol * Neutropenic fever -empiric Levaquin, fluconazole, acyclovir -has been afebrile > 24 hours * pancytopenia -in setting of above -transfuse Hg today<7, tx prn for plt < 10 -irradiated, CMV negative blood * Back pain - outpatient MRI negative -likely due to AML * CMV IgM positive - suggests recent infection * IP status Patient new to my care. Old records reviewed and summarized as above. Subjective: no significant overnight events, patient feeling well currently, bored slightly Objective: Vital Signs Temp Pulse Resp BP Pulse Ox 36.8 C 88 18 110/73 95 08/25/17 15:39 08/25/17 15:39 08/25/17 15:39 08/25/17 15:39 08/25/17 15:39 Laboratory Results 08/25/17 05:20 08/25/17 05:20 08/24/17 08/25/17 08/26/17 05:59 05:59 05:59 Intake Total 4207.5 350 Output Total 3800 Balance 407.5 350 PT 14.1 SEC (12.0-15.0) 08/22/17 12:45 INR 1.10 (0.83-1.16) 08/22/17 12:45 awake alert nad anicteric op clear rrr no mrg cta b soft nt nd no cce ICD10 Worksheet Patient Problems: Problems Problem Status Onset Neutropenic fever Acute Acute myeloid leukemia Acute
[2017-08-25 21:05] LABS: ADD MORPH? NO; ADD SCAN? YES; ATYPICAL LYMPHOCYTE FLAG 0 (0-99); FRAGMENT RBC FLAG 0 (0-99); HEMATOCRIT 22.2 % (40.0-51.0); HEMOGLOBIN 7.8 g/dL (13.7-17.5); LEFT SHIFT FLG 0 (0-99); LIPEMIA HEMOLYSIS FLAG 90 (0-99); MEAN CELL HEMOGLOBIN 33.5 pg (27.9-34.1); MEAN CELL HEMOGLOBIN CONCENTR. 35.1 g/dL (32.4-36.7); MEAN CELL VOLUME 95.3 fL (81.5-99.8); MEAN PLATELET VOLUME 9.1 fL (8.7-11.7); PLATELET CLUMPS FLAG 0 (0-99); PLATELET COUNT 95 10^3/uL (150-400); RED BLOOD CELL COUNT 2.33 10^6/uL (4.40-6.38); RED CELL DISTRIBUTION WIDTH 15.9 % (11.5-15.2)
[2017-08-25 21:26] LABS: ALANINE AMINOTRANSFERASE 33 IU/L (21-72); ALKALINE PHOSPHATASE 66 IU/L (38-126); ANION GAP 9 mEq/L (8-16); ASPARTATE AMINOTRANSFERASE 16 IU/L (17-59); BILIRUBIN,TOTAL 0.5 mg/dL (0.1-1.4); CALCIUM 8.4 mg/dL (8.5-10.4); CARBON DIOXIDE 26 mEq/l (22-31); CHLORIDE 102 mEq/L (97-110); CREATININE 0.8 mg/dL (0.7-1.3); GLOMERULAR FILTRATION RATE > 60; GLUCOSE 175 mg/dL (70-100); LACTATE DEHYDROGENASE 342 IU/L (313-618); POTASSIUM 3.7 mEq/L (3.5-5.2); SODIUM 137 mEq/L (134-144); TOTAL PROTEIN 5.8 g/dL (6.3-8.2); URIC ACID 5.6 mg/dL (3.5-8.5)
[2017-08-25 21:37] LABS: ADD DIFF? YES; SCAN POSITIVE
[2017-08-25 21:43] LABS: MACROCYTES 1+; MICROCYTES 1+; PLATELET ESTIMATE DECREASED (ADEQ)
[2017-08-26 09:04] LABS: ALANINE AMINOTRANSFERASE 36 IU/L (21-72); ALBUMIN 3.3 g/dL (3.5-5.0); ALKALINE PHOSPHATASE 71 IU/L (38-126); ANION GAP 10 mEq/L (8-16); ASPARTATE AMINOTRANSFERASE 14 IU/L (17-59); BILIRUBIN,TOTAL 0.5 mg/dL (0.1-1.4); CALCIUM 8.7 mg/dL (8.5-10.4); CARBON DIOXIDE 25 mEq/l (22-31); CHLORIDE 104 mEq/L (97-110); CREATININE 0.8 mg/dL (0.7-1.3); GLOMERULAR FILTRATION RATE > 60; GLUCOSE 95 mg/dL (70-100); LACTATE DEHYDROGENASE 331 IU/L (313-618); POTASSIUM 4.2 mEq/L (3.5-5.2); SODIUM 139 mEq/L (134-144); TOTAL PROTEIN 6.3 g/dL (6.3-8.2)
[2017-08-26 10:10] LABS: ADD DIFF? YES; ADD MORPH? NO; ADD SCAN? NO; ATYPICAL LYMPHOCYTE FLAG 0 (0-99); FRAGMENT RBC FLAG 0 (0-99); HEMATOCRIT 23.9 % (40.0-51.0); HEMOGLOBIN 8.7 g/dL (13.7-17.5); LEFT SHIFT FLG 0 (0-99); LIPEMIA HEMOLYSIS FLAG 90 (0-99); MEAN CELL HEMOGLOBIN 34.1 pg (27.9-34.1); MEAN CELL HEMOGLOBIN CONCENTR. 36.4 g/dL (32.4-36.7); MEAN CELL VOLUME 93.7 fL (81.5-99.8); PLATELET CLUMPS FLAG 10 (0-99); PLATELET COUNT 101 10^3/uL (150-400); RED BLOOD CELL COUNT 2.55 10^6/uL (4.40-6.38); RED CELL DISTRIBUTION WIDTH 15.9 % (11.5-15.2)
[2017-08-26] MEDS: ALLOPURINOL 300 MG TAB PO SCH (10:13)
[2017-08-26] MEDS: FLUCONAZOLE 100 MG TAB PO SCH (10:13)
[2017-08-26] MEDS: ACYCLOVIR 400 MG TAB PO SCH ×2 (10:13→20:00)
[2017-08-26 10:18] LABS: PLATELET ESTIMATE DECREASED (ADEQ)
[2017-08-26] MEDS: NS IV SCH (13:09)
[2017-08-26] MEDS: CYTARABINE IV SCH (13:09)
--- NOTE | 2017-08-26 14:15 | SOAPPROG ---
SOAP Progress Note Assessment/Plan: A/P: * AM: D4 7+3 induction. FISH negative, molecular studies pending. Phos slightly up, but no other evidence of tumor lysis. * Pancytopenia: due to marrow involvement. Counts coming down as expected with chemo. No indication for xfus today. Irradiated blood products/CMV negative. Transfuse for Hgb<7 (6.7 today), platelets <10k or bleeding. * Fever: resmains afeb. Cont empiric coverage with levoquin, prophylactic acyclovir, and fluconazole. * Back pain: improved since starting chemo. * +CMV IgM: ?recent exposure. Recheck IgG in 2 weeks. No evidence of infection/organ involvement (pneumonitis, colitis, etc.). Discussed his questions regarding visitors, future bmbx, and we discussed general plan of post-remission therapy (which will be influenced by molecular studies). 08/26/17 14:16 Subjective: Mild nausea, improved with eating. No other concerns. No bleeding, no neuro sxs. O: VS reviewed, AF. UO adequate. Gen: NAD, A&O. Lungs: CTA. CV: no edema. Abd: soft, NT. Skin: no rash. RUE PICC site nontender, no erythema. Neuro: nonfocal. Laboratory Tests 08/26/17 08/26/17 08:36 08:36 WBC 0.95 L* Hgb 8.7 L Plt Count 101 L Absolute Seg Neuts 0.05 L Absolute Band Neuts 0.01 Sodium 139 Potassium 4.2 Chloride 104 Carbon Dioxide 25 Anion Gap 10 BUN 12 Creatinine 0.8 Estimated GFR > 60 Glucose 95 Uric Acid 6.0 Calcium 8.7 Phosphorus 4.6 H D Total Bilirubin 0.5 AST 14 L ALT 36 Alkaline Phosphatase 71 Lactate Dehydrogenase 331 Albumin 3.3 L Objective: Vital Signs Temp Pulse Resp BP Pulse Ox 37.2 C 100 18 106/74 96 08/26/17 13:02 08/26/17 13:02 08/26/17 13:02 08/26/17 13:02 08/26/17 13:02 Laboratory Results 08/26/17 08:36 08/26/17 08:36 08/25/17 08/26/17 08/27/17 05:59 05:59 05:59 Intake Total 350 3022 Output Total 1000 Balance 350 2022 PT 14.1 SEC (12.0-15.0) 08/22/17 12:45 INR 1.10 (0.83-1.16) 08/22/17 12:45 ICD10 Worksheet Patient Problems: Problems Problem Status Onset Acute myeloid leukemia Acute Neutropenic fever Acute
[2017-08-26] MEDS ORDERED: LACTULOSE 20 GM/30 ML UDCUP PO PRN (14:46)
[2017-08-26] MEDS ORDERED: POLYETHYLENE GLYCOL 3350 17 GM PKT PO PRN (14:46)
[2017-08-26] MEDS ORDERED: MAGNESIUM HYDROXIDE 30 ML UDCUP PO PRN (14:46)
[2017-08-26] MEDS: oxyCODONE IR 5 MG TAB PO PRN (15:30)
--- NOTE | 2017-08-26 15:39 | HOSPPROG ---
Hospitalist Progress Note Assessment/Plan: 42 yo M with AML here for induction chemo * AML - induction chemo -watch for tumor lysis - BID labs -on allopurinol * Neutropenic fever -empiric Levaquin, fluconazole, acyclovir -has been afebrile > 24 hours * pancytopenia -in setting of above -transfuse prbc prn for hgb <7, tx prn for plt < 10 -irradiated, CMV negative blood * Back pain - outpatient MRI negative -likely due to AML * CMV IgM positive - suggests recent infection * IP status Subjective: no significant overnight events, patient is currently feeling a bit more run down than yesterday but not terrible, no real appetite Objective: Vital Signs Temp Pulse Resp BP Pulse Ox 37.2 C 100 18 106/74 96 08/26/17 13:02 08/26/17 13:02 08/26/17 13:02 08/26/17 13:02 08/26/17 13:02 Laboratory Results 08/26/17 08:36 08/26/17 08:36 08/25/17 08/26/17 08/27/17 05:59 05:59 05:59 Intake Total 350 3022 Output Total 1000 Balance 350 2022 PT 14.1 SEC (12.0-15.0) 08/22/17 12:45 INR 1.10 (0.83-1.16) 08/22/17 12:45 awake alert nad anicteric op clear rrr no mrg cta b soft nt nd no cce ICD10 Worksheet Patient Problems: Problems Problem Status Onset Acute myeloid leukemia Acute Neutropenic fever Acute
[2017-08-26] MEDS: NS 1,000 ML IV SCH (17:35)
[2017-08-26] MEDS: PROCHLORPERAZINE MALEATE 10 MG TAB PO PRN (19:59)
[2017-08-26] MEDS: SENNOSIDES/DOCUSATE SODIUM TAB PO SCH (20:00)
[2017-08-26 20:36] LABS: ADD MORPH? NO; ATYPICAL LYMPHOCYTE FLAG 0 (0-99); FRAGMENT RBC FLAG 0 (0-99); HEMATOCRIT 21.8 % (40.0-51.0); HEMOGLOBIN 7.9 g/dL (13.7-17.5); LEFT SHIFT FLG 0 (0-99); LIPEMIA HEMOLYSIS FLAG 90 (0-99); MEAN CELL HEMOGLOBIN 34.2 pg (27.9-34.1); MEAN CELL HEMOGLOBIN CONCENTR. 36.2 g/dL (32.4-36.7); MEAN CELL VOLUME 94.4 fL (81.5-99.8); MEAN PLATELET VOLUME 9.1 fL (8.7-11.7); PLATELET CLUMPS FLAG 0 (0-99); PLATELET COUNT 86 10^3/uL (150-400); RED BLOOD CELL COUNT 2.31 10^6/uL (4.40-6.38); RED CELL DISTRIBUTION WIDTH 15.4 % (11.5-15.2)
[2017-08-26 20:42] LABS: ALANINE AMINOTRANSFERASE 34 IU/L (21-72); ALBUMIN 2.7 g/dL (3.5-5.0); ALKALINE PHOSPHATASE 60 IU/L (38-126); ANION GAP 8 mEq/L (8-16); ASPARTATE AMINOTRANSFERASE 11 IU/L (17-59); BILIRUBIN,TOTAL 0.4 mg/dL (0.1-1.4); CALCIUM 7.9 mg/dL (8.5-10.4); CARBON DIOXIDE 23 mEq/l (22-31); CHLORIDE 105 mEq/L (97-110); CREATININE 0.7 mg/dL (0.7-1.3); GLOMERULAR FILTRATION RATE > 60; GLUCOSE 116 mg/dL (70-100); LACTATE DEHYDROGENASE 265 IU/L (313-618); POTASSIUM 3.5 mEq/L (3.5-5.2); SODIUM 136 mEq/L (134-144); TOTAL PROTEIN 5.7 g/dL (6.3-8.2); URIC ACID 4.8 mg/dL (3.5-8.5)
[2017-08-26 21:38] LABS: ADD SCAN? YES
[2017-08-26 21:44] LABS: ADD DIFF? NO
[2017-08-27] MEDS: oxyCODONE IR 5 MG TAB PO PRN ×2 (05:19→17:54)
[2017-08-27] MEDS: NS 1,000 ML IV SCH (05:21)
[2017-08-27 08:54] LABS: ADD MORPH? NO; ATYPICAL LYMPHOCYTE FLAG 0 (0-99); FRAGMENT RBC FLAG 0 (0-99); HEMATOCRIT 22.5 % (40.0-51.0); HEMOGLOBIN 8.3 g/dL (13.7-17.5); LEFT SHIFT FLG 0 (0-99); LIPEMIA HEMOLYSIS FLAG 90 (0-99); MEAN CELL HEMOGLOBIN 34.7 pg (27.9-34.1); MEAN CELL HEMOGLOBIN CONCENTR. 36.9 g/dL (32.4-36.7); MEAN CELL VOLUME 94.1 fL (81.5-99.8); MEAN PLATELET VOLUME 8.8 fL (8.7-11.7); PLATELET CLUMPS FLAG 10 (0-99); PLATELET COUNT 86 10^3/uL (150-400); RED BLOOD CELL COUNT 2.39 10^6/uL (4.40-6.38); RED CELL DISTRIBUTION WIDTH 14.6 % (11.5-15.2)
[2017-08-27 09:06] LABS: ADD DIFF? NO; ADD SCAN? NO
--- NOTE | 2017-08-27 09:09 | SOAPPROG ---
SOAP Progress Note Assessment/Plan: Assessment: SOAP Progress Note SOAP Progress Note Assessment/Plan: * AML: D4 7+3 induction. FISH negative, molecular studies pending. Phos slightly up, but no other evidence of tumor lysis. * Pancytopenia: due to marrow involvement. Counts coming down as expected with chemo. No indication for xfus today. Irradiated blood products/CMV negative. Transfuse for Hgb<7 (6.7 today), platelets <10k or bleeding. * Fever: remains afeb. Cont empiric coverage with levoquin, prophylactic acyclovir, and fluconazole. * Back pain: improved since starting chemo. * +CMV IgM: ?recent exposure. Recheck IgG in 2 weeks. No evidence of infection/organ involvement (pneumonitis, colitis, etc.). Subjective: No new symptoms other than loss of appetite, no fever, no nausea, no diarrhea, etc. Objective: Vital Signs Temp Pulse Resp BP Pulse Ox 37.4 C 87 16 104/58 L 97 08/27/17 04:00 08/27/17 04:00 08/27/17 04:00 08/27/17 04:00 08/27/17 04:00 Laboratory Results 08/27/17 08:19 08/26/17 08/27/17 08/28/17 05:59 05:59 05:59 Intake Total 3022 3085 Output Total 1000 502 Balance 2021 2583 PT 14.1 SEC (12.0-15.0) 08/22/17 12:45 INR 1.10 (0.83-1.16) 08/22/17 12:45 Physical Exam - Physical Exam General Appearance: alert, no apparent distress Neck: supple Respiratory: lungs clear Abdomen: non-tender, soft Skin: other (PICC in right arm without signs of infection) Extremities: No pedal edema Neuro/Psych: alert, normal mood/affect, oriented x 3 ICD10 Worksheet Patient Problems: Problems Problem Status Onset Acute myeloid leukemia Acute Neutropenic fever Acute
[2017-08-27 09:11] LABS: ALANINE AMINOTRANSFERASE 29 IU/L (21-72); ALBUMIN 3.2 g/dL (3.5-5.0); ALKALINE PHOSPHATASE 71 IU/L (38-126); ANION GAP 8 mEq/L (8-16); ASPARTATE AMINOTRANSFERASE 12 IU/L (17-59); BILIRUBIN,TOTAL 0.7 mg/dL (0.1-1.4); CALCIUM 8.3 mg/dL (8.5-10.4); CARBON DIOXIDE 24 mEq/l (22-31); CHLORIDE 104 mEq/L (97-110); CREATININE 0.8 mg/dL (0.7-1.3); GLOMERULAR FILTRATION RATE > 60; GLUCOSE 103 mg/dL (70-100); LACTATE DEHYDROGENASE 321 IU/L (313-618); POTASSIUM 4.2 mEq/L (3.5-5.2); SODIUM 136 mEq/L (134-144); TOTAL PROTEIN 6.2 g/dL (6.3-8.2)
[2017-08-27] MEDS: SENNOSIDES/DOCUSATE SODIUM TAB PO SCH ×2 (10:17→21:34)
[2017-08-27] MEDS: ACYCLOVIR 400 MG TAB PO SCH ×2 (10:17→21:34)
[2017-08-27] MEDS: FLUCONAZOLE 100 MG TAB PO SCH (10:18)
[2017-08-27] MEDS: ALLOPURINOL 300 MG TAB PO SCH (10:18)
[2017-08-27] MEDS: ONDANSETRON DISINTEGRATING 4 MG TAB PO PRN (12:25)
[2017-08-27] MEDS ORDERED: ONDANSETRON 4 MG/2 ML VIAL IVP PRN (12:40)
[2017-08-27] MEDS: CYTARABINE IV SCH (14:32)
[2017-08-27] MEDS: NS IV SCH (14:32)
--- NOTE | 2017-08-27 15:39 | HOSPPROG ---
Hospitalist Progress Note Assessment/Plan: 42 yo M with AML here for induction chemo * AML - induction chemo -watch for tumor lysis - BID labs -on allopurinol * Neutropenic fever -empiric Levaquin, fluconazole, acyclovir -has been afebrile since arrival here in the hospital * pancytopenia -in setting of above, counts have been trending down and nearly stable for last 2 days -transfuse prbc prn for hgb <7, tx prn for plt < 10 -irradiated, CMV negative blood * Back pain - outpatient MRI negative -likely due to AML * CMV IgM positive - suggests recent infection * IP status Subjective: no significant overnight events, sleepy today but states overall feels better than yesterday Objective: Vital Signs Temp Pulse Resp BP Pulse Ox 37.0 C 94 16 116/64 93 08/27/17 10:20 08/27/17 10:20 08/27/17 10:20 08/27/17 10:20 08/27/17 10:20 Laboratory Results 08/27/17 08:19 08/27/17 08:19 08/26/17 08/27/17 08/28/17 05:59 05:59 05:59 Intake Total 3022 3085 Output Total 1000 502 600 Balance 2021 2583 -600 PT 14.1 SEC (12.0-15.0) 08/22/17 12:45 INR 1.10 (0.83-1.16) 08/22/17 12:45 awake alert nad anicteric cta b soft nt nd no cce ICD10 Worksheet Patient Problems: Problems Problem Status Onset Neutropenic fever Acute Acute myeloid leukemia Acute
--- NOTE | 2017-08-27 16:46 | ASMTCMCOM ---
CM Note CM Note Notes: Met with pt for support with new dx. Pt interested in more details about his dx. Encouraged him to check out [email or web address] website which has a wide variety of info on AML as well as a local and online support group. Discussed pt's financial concerns.Pt asked to see Sheri, medicaid specialist again. Pt discussed his support system of girlfirend and friends. His family is out of town. Let pt know C/M available if any questions or concerns arise. C/M will follow for DC needs. Date Signed: 08/27/2017 04:45 PM Electronically Signed By:Jazmine Alanis LCSW
[2017-08-27] MEDS ORDERED: CEFEPIME HCL 1 GM in D5W 50 ML IV SCH ×2 (18:59→22:00)
--- NOTE | 2017-08-27 19:06 | HOSPPROG ---
Hospitalist Progress Note Assessment/Plan: XC note: Called with T39.2 Discussed case with oncology. Blood, urine cultures ordered. Will dc Levaquin and start Cefepime and Vanc. Cont acyclovir and fluconazole. ID consult requested for am. Objective: Vital Signs Temp Pulse Resp BP Pulse Ox 38.6 C H 99 18 112/68 94 08/27/17 18:37 08/27/17 18:37 08/27/17 18:37 08/27/17 18:37 08/27/17 18:37 Laboratory Results 08/27/17 08:19 08/27/17 08:19 08/26/17 08/27/17 08/28/17 05:59 05:59 05:59 Intake Total 3022 3085 1367 Output Total 1000 502 600 Balance 2021 2583 767 PT 14.1 SEC (12.0-15.0) 08/22/17 12:45 INR 1.10 (0.83-1.16) 08/22/17 12:45 ICD10 Worksheet Patient Problems: Problems Problem Status Onset Acute myeloid leukemia Acute Neutropenic fever Acute
[2017-08-27] MEDS: ACETAMINOPHEN 325 MG TAB PO PRN (19:34)
[2017-08-27 20:06] LABS: COLOR YELLOW; LEUKOCYTE ESTERASE,URINE NEGATIVE (NEGATIVE); NITRITE,URINE NEGATIVE (NEGATIVE)
[2017-08-27] MEDS: CEFEPIME HCL 1 GM in D5W 50 ML IV SCH (20:14)
[2017-08-27 20:35] LABS: ADD MORPH? NO; ATYPICAL LYMPHOCYTE FLAG 0 (0-99); FRAGMENT RBC FLAG 0 (0-99); HEMATOCRIT 21.2 % (40.0-51.0); HEMOGLOBIN 7.9 g/dL (13.7-17.5); LEFT SHIFT FLG 0 (0-99); LIPEMIA HEMOLYSIS FLAG 90 (0-99); MEAN CELL HEMOGLOBIN 34.8 pg (27.9-34.1); MEAN CELL HEMOGLOBIN CONCENTR. 37.3 g/dL (32.4-36.7); MEAN CELL VOLUME 93.4 fL (81.5-99.8); MEAN PLATELET VOLUME 8.4 fL (8.7-11.7); PLATELET CLUMPS FLAG 0 (0-99); PLATELET COUNT 71 10^3/uL (150-400); RED BLOOD CELL COUNT 2.27 10^6/uL (4.40-6.38); RED CELL DISTRIBUTION WIDTH 14.3 % (11.5-15.2)
[2017-08-27 20:43] LABS: ADD SCAN? NO
[2017-08-27 20:44] LABS: ADD DIFF? NO
[2017-08-27 20:45] LABS: ALANINE AMINOTRANSFERASE 27 IU/L (21-72); ALBUMIN 3.3 g/dL (3.5-5.0); ALKALINE PHOSPHATASE 70 IU/L (38-126); ANION GAP 9 mEq/L (8-16); ASPARTATE AMINOTRANSFERASE 11 IU/L (17-59); BILIRUBIN,TOTAL 0.5 mg/dL (0.1-1.4); CALCIUM 8.3 mg/dL (8.5-10.4); CARBON DIOXIDE 22 mEq/l (22-31); CHLORIDE 100 mEq/L (97-110); CREATININE 0.8 mg/dL (0.7-1.3); GLOMERULAR FILTRATION RATE > 60; GLUCOSE 106 mg/dL (70-100); LACTATE DEHYDROGENASE 322 IU/L (313-618); POTASSIUM 4.1 mEq/L (3.5-5.2); SODIUM 131 mEq/L (134-144); TOTAL PROTEIN 6.2 g/dL (6.3-8.2); URIC ACID 3.9 mg/dL (3.5-8.5)
[2017-08-27] MEDS: VANCOMYCIN 1.25 GM in D5W 250 ML IV SCH (21:33)
[2017-08-28] MEDS: CEFEPIME HCL 1 GM in D5W 50 ML IV SCH ×2 (03:39→11:25)
[2017-08-28] MEDS: ACETAMINOPHEN 325 MG TAB PO PRN ×4 (03:47→23:48)
[2017-08-28] MEDS: VANCOMYCIN 1.25 GM in D5W 250 ML IV SCH ×2 (08:00→20:56)
[2017-08-28 08:15] LABS: ADD MORPH? NO; ATYPICAL LYMPHOCYTE FLAG 0 (0-99); FRAGMENT RBC FLAG 0 (0-99); HEMATOCRIT 21.9 % (40.0-51.0); LEFT SHIFT FLG 0 (0-99); LIPEMIA HEMOLYSIS FLAG 90 (0-99); MEAN CELL HEMOGLOBIN 34.2 pg (27.9-34.1); MEAN CELL HEMOGLOBIN CONCENTR. 36.5 g/dL (32.4-36.7); MEAN CELL VOLUME 93.6 fL (81.5-99.8); PLATELET CLUMPS FLAG 0 (0-99); PLATELET COUNT 59 10^3/uL (150-400); RED BLOOD CELL COUNT 2.34 10^6/uL (4.40-6.38); RED CELL DISTRIBUTION WIDTH 13.9 % (11.5-15.2)
--- NOTE | 2017-08-28 08:18 | HOSPPROG ---
Hospitalist Progress Note Assessment/Plan: #Neutropenic fever: UA negative, blood culture pending. Cefepime/Vanc. Loose stools this morning. C diff pending -ppx Acyclovir, fluconazole #AML: induction chemo. Monitor for TLS. Cont allopurinol #Diarrhea: C diff pending #Back pain: improved #Pancytopenia: transfuse if Hb <7. Last transfusion 08/25 #Diet: regular #DVT ppx: SCDs #Disp: warrants inpt admission with induction chemo/fever. Cont chemo, IV abx Subjective: loose stools this morning. "everything tastes bad" Objective: Vital Signs Temp Pulse Resp BP Pulse Ox 36.8 C 80 16 102/62 93 08/28/17 08:00 08/28/17 08:00 08/28/17 08:00 08/28/17 08:00 08/28/17 08:00 08/27/17 08/28/17 08/29/17 05:59 05:59 05:59 Intake Total 3085 2897 Output Total 502 600 Balance 2583 2297 PT 14.1 SEC (12.0-15.0) 08/22/17 12:45 INR 1.10 (0.83-1.16) 08/22/17 12:45 - Physical Exam Constitutional: other (ill-appearing, pale) Eyes: PERRL Ears, Nose, Mouth, Throat: moist mucous membranes, No no oral mucosal ulcers, No oral thrush Cardiovascular: regular rate and rhythym, no murmur, rub, or gallop Respiratory: no respiratory distress, no rales or rhonchi Gastrointestinal: normoactive bowel sounds, soft, non-tender abdomen, no palpable masses, No tenderness Genitourinary: no bladder fullness Skin: warm, normal color, No no rashes or abrasions Musculoskeletal: full muscle strength Neurologic: AAOx3, CN II-XII Intact Psychiatric: interacting appropriately ICD10 Worksheet Patient Problems: Problems Problem Status Onset Acute myeloid leukemia Acute Neutropenic fever Acute
[2017-08-28 08:34] LABS: ALANINE AMINOTRANSFERASE 26 IU/L (21-72); ALBUMIN 3.2 g/dL (3.5-5.0); ALKALINE PHOSPHATASE 66 IU/L (38-126); ANION GAP 8 mEq/L (8-16); ASPARTATE AMINOTRANSFERASE 12 IU/L (17-59); BILIRUBIN,TOTAL 0.6 mg/dL (0.1-1.4); CALCIUM 8.4 mg/dL (8.5-10.4); CARBON DIOXIDE 24 mEq/l (22-31); CHLORIDE 105 mEq/L (97-110); CREATININE 0.8 mg/dL (0.7-1.3); GLOMERULAR FILTRATION RATE > 60; GLUCOSE 102 mg/dL (70-100); LACTATE DEHYDROGENASE 313 IU/L (313-618); POTASSIUM 4.6 mEq/L (3.5-5.2); SODIUM 137 mEq/L (134-144); TOTAL PROTEIN 6.2 g/dL (6.3-8.2); URIC ACID 4.2 mg/dL (3.5-8.5)
[2017-08-28 08:43] LABS: ADD SCAN? NO
[2017-08-28 08:44] LABS: ADD DIFF? NO
[2017-08-28] MEDS: ACYCLOVIR 400 MG TAB PO SCH ×2 (10:30→21:02)
[2017-08-28] MEDS: ALLOPURINOL 300 MG TAB PO SCH (10:30)
[2017-08-28] MEDS: FLUCONAZOLE 100 MG TAB PO SCH (10:30)
[2017-08-28] MEDS: SENNOSIDES/DOCUSATE SODIUM TAB PO SCH ×2 (10:32→20:41)
[2017-08-28] MEDS: oxyCODONE IR 5 MG TAB PO PRN ×3 (13:23→23:49)
[2017-08-28] MEDS: NS 1,000 ML IV SCH (13:24)
--- NOTE | 2017-08-28 13:49 | GCON ---
[f rep st] CONSULTATION INPATIENT INFECTIOUS DISEASE CONSULTATION. DATE OF CONSULTATION: 08/28/2017 REFERRING PHYSICIAN: Susannah Metcalf MD REASON FOR REFERRAL: Neutropenic fever. HISTORY OF PRESENT ILLNESS: Patient is a 42-year-old male, who was admitted to [facility] on 08/22/2017 secondary to planned induction chemotherapy for acute myelogenous leukemia. [facility], he noted that he had a fever to 101. He was diagnosed with his condition after presenting with a number of weeks of illness. He noted sore throat and sinus inflammation mary t would not alleviate. He also had an increase in low back pain. Routine laboratories found in his peripheral circulation that he had 40% blasts. The patient was admitted and begun on cytarabine, along with a daily Levaquin prophylaxis on 08/23/20 17. The patient did well until yesterday evening when he spiked a fever to 39.2 degrees Celsius. He was begun on vancomycin and cefepime. Fluconazole 200 mg once daily had been started upon his admis racheal. This medication continues. The patient is resting comfortably in his hospital bed. He notes that he feels very cold. No other localizing complaint. PAST MEDICAL HISTORY: Acute myelogenous leukemia. PAST SURGICAL HISTORY: None noted. ANTIBIOTICS: 1. Vancomycin. 2. Cefepime. ALLERGIES: No known drug allergies. 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 He occasionally uses tobacco an d marijuana. Occasional alcohol consumer as well. No drugs. FAMILY HISTORY: Reviewed but noncontributory. REVIEW OF SYSTEMS: Other than that detailed above in history of present illness, a comprehensive 10- system review is negative. PHYSICAL EXAMINATION: VITAL SIGNS: Temperature maximum is 39.2, temperature current is 37.9, heart rate is 97, respiratory rate is 16, blood pressure is 100/62. GENERAL: The patient is a well-formed , well-nourished, middle-aged male in no acute distress. He is mildly toxic in appearance. He is al ert and oriented x3. He has a pleasant demeanor. HEENT: Normocephalic for age. Atraumatic. No sc leral icterus. No oral lesion. No drainage from the nares. Eyes: Lids and conjunctivae are within normal limits. Pupils are equal and round bilaterally. NECK: Supple. No meningismus. LUNGS: Cl ear to auscultation bilaterally with good effort. HEART: Regular rate and rhythm. No significant p eripheral edema. SKIN: Warm and dry to touch. No rash or lesion noted. LABORATORY DATA: The patient has a CBC dated 08/28/2017 which shows white blood cell count of 0.58, hemoglobin of 8.0, hematocrit of 21.9, platelet count of 59. Differential shows 9% segmented neutrop hils. Serum chemistries on 08/28/2017 show sodium of 137, potassium 4.6, chloride 105, bicarbonate 2 4, BUN of 13, creatinine 0.8. AST is 12, ALT is 26. Urinalysis on 08/27/2017 is within normal limit s. MICROBIOLOGIC DATA: The patient has blood culture sets from 08/22/2017, which are negative. Blood c ultures on 08/27/2017 are no growth to date. Urine culture on 08/27/2017 is also no growth to date. ASSESSMENT: Neutropenic fever, no clear etiology. Agree with empiric initiation of vancomycin and c efepime. Vancomycin target dosing at 10 to 15 is reasonable. Cefepime dose should be increased to 2 g IV q.8 hours. We will do this. The general goal here is to use the vancomycin and cefepime to st and in for his missing neutrophils until his counts recover. We plan on continuing both agents throu gh resolution of fever and reacquisition of a normal amount of neutrophil count. PLAN: 1. Continue vancomycin at current dose. 2. Continue cefepime but increase to 2 g IV q.8 hours. 3. Follow fever curve and laboratory data. 4. Follow clinical course. /[id number]/MODL
--- NOTE | 2017-08-28 13:57 | SOAPPROG ---
SOAP Progress Note Assessment/Plan: A/P: * AML: D6 7+3 induction. FISH negative, molecular studies pending. Counts dropping appropriately. No evidence of tumor lysis. * Pancytopenia: due to marrow involvement. No indication for xfus today. Irradiated blood products/CMV negative. Transfuse for Hgb<7 (6.7 today), platelets <10k or bleeding. * Neutropenic fever: Vanc/Cefepime started, prophylactic acyclovir, and fluconazole. * Back pain: improved since starting chemo. * +CMV IgM: ?recent exposure. Recheck IgG in 2 weeks. No evidence of infection/organ involvement (pneumonitis, colitis, etc.). * Supportive care: nutrition consult, calorie count. 08/28/17 14:01 Subjective: S: Some nausea. Altered taste makes food unappealing. No bleeding. O: VS reviewed. Tm 39.2. Gen: fatigued, NAD, A&O. Lungs: CTA. CV: no edema. Neuro: nonfocal. Skin: RUE PICC site without erythema, tenderness. Laboratory Tests 08/28/17 08/28/17 08:07 08:07 WBC 0.58 L* Hgb 8.0 L Plt Count 59 L Absolute Neuts (auto) 0.05 L Sodium 137 Potassium 4.6 Chloride 105 Carbon Dioxide 24 Anion Gap 8 BUN 13 Creatinine 0.8 Glucose 102 H Uric Acid 4.2 Calcium 8.4 L Phosphorus 4.1 D Total Bilirubin 0.6 ALT 26 Alkaline Phosphatase 66 Lactate Dehydrogenase 313 Albumin 3.2 L Corrected Ca 9.0 Objective: Vital Signs Temp Pulse Resp BP Pulse Ox 37.9 C 97 16 100/62 95 08/28/17 13:02 08/28/17 13:02 08/28/17 13:02 08/28/17 13:02 08/28/17 13:02 Microbiology 08/22/17 13:35 Blood Culture - Final Blood Laboratory Results 08/28/17 08:07 08/28/17 08:07 08/27/17 08/28/17 08/29/17 05:59 05:59 05:59 Intake Total 3085 2897 Output Total 502 600 650 Balance 2583 2297 -650 PT 14.1 SEC (12.0-15.0) 08/22/17 12:45 INR 1.10 (0.83-1.16) 08/22/17 12:45 ICD10 Worksheet Patient Problems: Problems Problem Status Onset Acute myeloid leukemia Acute Neutropenic fever Acute
--- NOTE | 2017-08-28 14:39 | ASMTCMCOM ---
CM Note CM Note Notes: Sheri from [employer] met with pt yesterday and he has been approved for Medicaid. C/M will continie to follow for DC needs. Date Signed: 08/28/2017 02:38 PM Electronically Signed By:Jazmine Alanis LCSW
[2017-08-28] MEDS: NS IV SCH (15:51)
[2017-08-28] MEDS: CYTARABINE IV SCH (15:51)
[2017-08-28] MEDS: CEFEPIME HCL 2 GM in D5W 50 ML IV SCH (19:25)
[2017-08-28 19:58] LABS: ADD MORPH? NO; ATYPICAL LYMPHOCYTE FLAG 0 (0-99); FRAGMENT RBC FLAG 0 (0-99); HEMATOCRIT 19.9 % (40.0-51.0); HEMOGLOBIN 7.4 g/dL (13.7-17.5); LEFT SHIFT FLG 0 (0-99); LIPEMIA HEMOLYSIS FLAG 90 (0-99); MEAN CELL HEMOGLOBIN 34.4 pg (27.9-34.1); MEAN CELL HEMOGLOBIN CONCENTR. 37.2 g/dL (32.4-36.7); MEAN CELL VOLUME 92.6 fL (81.5-99.8); MEAN PLATELET VOLUME 9.2 fL (8.7-11.7); PLATELET CLUMPS FLAG 0 (0-99); RED BLOOD CELL COUNT 2.15 10^6/uL (4.40-6.38); RED CELL DISTRIBUTION WIDTH 13.7 % (11.5-15.2)
[2017-08-28 19:59] LABS: PLATELET COUNT 46 10^3/uL (150-400)
[2017-08-28 20:10] LABS: ADD SCAN? NO
[2017-08-28 20:13] LABS: ADD DIFF? NO
[2017-08-28 20:52] LABS: ALANINE AMINOTRANSFERASE 25 IU/L (21-72); ALBUMIN 2.8 g/dL (3.5-5.0); ALKALINE PHOSPHATASE 65 IU/L (38-126); ANION GAP 10 mEq/L (8-16); ASPARTATE AMINOTRANSFERASE 14 IU/L (17-59); BILIRUBIN,TOTAL 0.6 mg/dL (0.1-1.4); CALCIUM 8.3 mg/dL (8.5-10.4); CARBON DIOXIDE 22 mEq/l (22-31); CHLORIDE 101 mEq/L (97-110); CREATININE 0.8 mg/dL (0.7-1.3); GLOMERULAR FILTRATION RATE > 60; GLUCOSE 127 mg/dL (70-100); LACTATE DEHYDROGENASE 347 IU/L (313-618); SODIUM 133 mEq/L (134-144); TOTAL PROTEIN 6.2 g/dL (6.3-8.2); URIC ACID 3.5 mg/dL (3.5-8.5)
[2017-08-29] MEDS: ACETAMINOPHEN 325 MG TAB PO PRN ×4 (03:44→20:23)
[2017-08-29] MEDS: CEFEPIME HCL 2 GM in D5W 50 ML IV SCH ×3 (03:44→21:09)
[2017-08-29 06:59] LABS: HEMOGLOBIN 7.3 g/dL (13.7-17.5); MEAN CELL HEMOGLOBIN 33.5 pg (27.9-34.1); MEAN CELL HEMOGLOBIN CONCENTR. 36.5 g/dL (32.4-36.7); MEAN CELL VOLUME 91.7 fL (81.5-99.8); MEAN PLATELET VOLUME 9.2 fL (8.7-11.7); RED BLOOD CELL COUNT 2.18 10^6/uL (4.40-6.38); RED CELL DISTRIBUTION WIDTH 13.4 % (11.5-15.2)
[2017-08-29 07:09] LABS: PLATELET COUNT 37 10^3/uL (150-400)
[2017-08-29 07:20] LABS: % IMMATURE GRANULYOCYTES 2.3 % (0.0-1.1); ALANINE AMINOTRANSFERASE 24 IU/L (21-72); ALBUMIN 3.1 g/dL (3.5-5.0); ALKALINE PHOSPHATASE 69 IU/L (38-126); ANION GAP 10 mEq/L (8-16); ASPARTATE AMINOTRANSFERASE 15 IU/L (17-59); BILIRUBIN,TOTAL 0.7 mg/dL (0.1-1.4); CALCIUM 8.2 mg/dL (8.5-10.4); CARBON DIOXIDE 21 mEq/l (22-31); CHLORIDE 104 mEq/L (97-110); CREATININE 0.8 mg/dL (0.7-1.3); GLOMERULAR FILTRATION RATE > 60; GLUCOSE 111 mg/dL (70-100); LACTATE DEHYDROGENASE 363 IU/L (313-618); POTASSIUM 4.1 mEq/L (3.5-5.2); SODIUM 135 mEq/L (134-144); TOTAL PROTEIN 6.1 g/dL (6.3-8.2); URIC ACID 3.3 mg/dL (3.5-8.5)
[2017-08-29 07:21] LABS: ABSOLUTE IMMATURE GRANULOCYTES 0.01 10^3/uL (0.00-0.10); ADD DIFF? NO
[2017-08-29 07:22] LABS: ADD SCAN? NO
[2017-08-29 07:23] LABS: ADD MORPH? YES
[2017-08-29] MEDS: VANCOMYCIN 1.25 GM in D5W 250 ML IV SCH (07:43)
[2017-08-29] MEDS: FLUCONAZOLE 100 MG TAB PO SCH (08:50)
[2017-08-29] MEDS: ACYCLOVIR 400 MG TAB PO SCH ×2 (08:50→20:23)
[2017-08-29] MEDS: ALLOPURINOL 300 MG TAB PO SCH (08:50)
--- NOTE | 2017-08-29 10:00 | HOSPPROG ---
Hospitalist Progress Note Assessment/Plan: #Neutropenic fever: UA negative, blood culture pending. Cefepime/Vanc. Loose stools yesterday, C diff pending. CMV PCR pending with recent +IgM -ppx Acyclovir, fluconazole -STD screening #AML: induction chemo. Monitor for TLS. Cont allopurinol #Diarrhea: C diff negative. #Positive CMV IgM: check PCR today. #Back pain: improved #Pancytopenia: transfuse if Hb <7. Last transfusion 08/25 #Diet: regular #DVT ppx: SCDs #Disp: warrants inpt admission with induction chemo/fever. Cont chemo, IV abx Subjective: diarrhea today Objective: Vital Signs Temp Pulse Resp BP Pulse Ox 37.6 C 93 16 128/60 H 96 08/29/17 08:00 08/29/17 08:00 08/29/17 08:00 08/29/17 08:00 08/29/17 08:00 Microbiology 08/22/17 13:35 Blood Culture - Final Blood Laboratory Results 08/29/17 06:30 08/29/17 06:30 08/28/17 08/29/17 08/30/17 05:59 05:59 04:59 Intake Total 2897 2692 Output Total 600 650 Balance 2297 2042 PT 14.1 SEC (12.0-15.0) 08/22/17 12:45 INR 1.10 (0.83-1.16) 08/22/17 12:45 ICD10 Worksheet Patient Problems: Problems Problem Status Onset Acute myeloid leukemia Acute Neutropenic fever Acute
--- NOTE | 2017-08-29 10:04 | SOAPPROG ---
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 Counts dropping appropriately. No evidence of tumor lysis.Chemo finishes tomorrow * Pancytopenia: due to marrow involvement. No indication for transfusion today. Irradiated blood products/CMV negative. Transfuse for Hgb<7 (6.7 today) , platelets <10k or bleeding. * Neutropenic fever: Vanc/Cefepime started, prophylactic acyclovir, and fluconazole.Fever is persistent, bc from 08/27 pending. Check cmv pcr, if high and fevers persisit may need to institute therapy * Back pain: improved since starting chemo, possibly related to marrow invasion * +CMV IgM: ?recent exposure. Recheck IgG in 2 weeks. No evidence of infection/organ involvement (pneumonitis, colitis, etc.). * Supportive care: nutrition consult, calorie count. may need tpn 08/29/17 09:58 Subjective: Poor appetite, some nausea Objective: Vital Signs Temp Pulse Resp BP Pulse Ox 99.7 F 93 16 128/60 H 96 08/29/17 08:00 08/29/17 08:00 08/29/17 08:00 08/29/17 08:00 08/29/17 08:00 Microbiology 08/22/17 13:35 Blood Culture - Final Blood Laboratory Results 08/29/17 06:30 08/29/17 06:30 08/28/17 08/29/17 08/30/17 05:59 05:59 04:59 Intake Total 2897 2692 Output Total 600 650 Balance 2297 2042 PT 14.1 SEC (12.0-15.0) 08/22/17 12:45 INR 1.10 (0.83-1.16) 08/22/17 12:45 Physical Exam - Physical Exam General Appearance: mild distress Respiratory: lungs clear Cardiac/Chest: regular rate, rhythm Abdomen: normal bowel sounds, non-tender Lymphatic: no adenopathy Extremities: other (Right pic ok) ICD10 Worksheet Patient Problems: Problems Problem Status Onset Acute myeloid leukemia Acute Neutropenic fever Acute
[2017-08-29] MEDS ORDERED: D5W NS 1,000 ML IV SCH (10:30)
[2017-08-29] MEDS ORDERED: PALONOSETRON HCL 0.25 MG/5 ML VIAL IVP ONE (10:30)
[2017-08-29] MEDS: SENNOSIDES/DOCUSATE SODIUM TAB PO SCH ×2 (11:12→21:46)
[2017-08-29] MEDS: LOPERAMIDE HCL 2 MG CAP PO PRN (12:40)
--- NOTE | 2017-08-29 12:50 | PCMIDPN ---
Assessment/Plan: 1. Neutropenic fever in patient with recent diagnosis of AML on day 7 of induction chemotherapy: I spent quite some time with this patient today, and scoured him from head to toe. No obvious source of infection. His abdominal exam is completely benign in the setting of his diarrhea. No evidence of perirectal erythema/abscess. For now, will increase vancomycin to 1.5 g IV q.12 hours, and continue cefepime as is. I do not feel that he needs anaerobic coverage at this point in time, or a CT of his abdomen and pelvis. Will continue to follow clinically. 2. CMV IgM positivity: Unclear significance. No evidence of active CMV disease at this point in time. Await PCR. I called the lab; this test should be back from [facility] on Thursday. Spent some time explaining CMV to the patient. 3. Miscellaneous: The patient reports significant sexual activity in his lifetime, including unprotected sex (he has sex only with women) several weeks ago with a friend in [place]. Will screen for syphilis, gonorrhea and Chlamydia, and although acute HIV seems less likely, will obtain HIV quantitative RNA. 08/29/17 12:53 Subjective: Still having fevers. Denies any visual floaters, double vision, cough, shortness of breath, headache, sore throat, dysphagia, chest pain, abdominal pain, dysuria or other. Feels hungry and wants to eat. Spent quite some time talking to the patient today. He was born and raised at [facility], and has been in [place] since 1987. He has sex only with women, and has had a significant sex life, with recent unprotected sex approximately 6 weeks ago. Having some loose stools, which began yesterday. They are nonbloody. No associated abdominal pain. C difficile negative. Objective: Vancomycin 1.25 g IV q.12 hours day 2. Cefepime 2 g IV q.8 hours day 1 (previously was on 1 g IV q.8 hours) Fluconazole 200 mg daily T-max 388 Vital Signs Temp Pulse Resp BP Pulse Ox 37.2 C 91 16 98/60 L 94 08/29/17 11:23 08/29/17 11:23 08/29/17 11:23 08/29/17 11:23 08/29/17 11:23 Microbiology 08/22/17 13:35 Blood Culture - Final Blood Laboratory Results 08/29/17 06:30 08/29/17 06:30 08/28/17 08/29/17 08/30/17 05:59 05:59 04:59 Intake Total 2897 9132 Output Total 600 650 Balance 229 2048 Blood culture so far no growth - Physical Exam General Appearance: alert, no apparent distress EENT: pharynx normal, No scleral icterus, No photophobia, No pharyngeal erythema , No tonsillar exudate, No thrush Respiratory: lungs clear Cardiac/Chest: regular rate, rhythm, No systolic murmur Extremities: other (PICC line right upper extremity looks fine) Abdomen: non-tender, soft, other (Hypoactive bowel sounds) Rectal: perirectal area (Looks fine. No erythema or tenderness.) Skin: other (Old tattoos.), No rash ICD10 Worksheet Patient Problems: Problems Problem Status Onset Acute myeloid leukemia Acute Neutropenic fever Acute
[2017-08-29] MEDS: NS IV SCH (16:51)
[2017-08-29] MEDS: CYTARABINE IV SCH (16:51)
[2017-08-29] MEDS ORDERED: MEPERIDINE 25 MG/ML SYR IVP ONE (17:48)
[2017-08-29] MEDS: MEPERIDINE 25 MG/ML SYR IVP PRN (17:59)
[2017-08-29] MEDS: VANCOMYCIN 1.5 GM in D5W 250 ML IV SCH (19:07)
[2017-08-29] MEDS: oxyCODONE IR 5 MG TAB PO PRN (20:28)
[2017-08-29 21:27] LABS: ATYPICAL LYMPHOCYTE FLAG 0 (0-99); FRAGMENT RBC FLAG 0 (0-99); MEAN CELL HEMOGLOBIN 34.6 pg (27.9-34.1); MEAN CELL VOLUME 91.6 fL (81.5-99.8); PLATELET CLUMPS FLAG 10 (0-99); RED BLOOD CELL COUNT 1.79 10^6/uL (4.40-6.38); RED CELL DISTRIBUTION WIDTH 13.4 % (11.5-15.2)
[2017-08-29 21:29] LABS: LEFT SHIFT FLG 0 (0-99); MEAN PLATELET VOLUME 9.2 fL (8.7-11.7)
[2017-08-29 21:31] LABS: HEMOGLOBIN 6.2 g/dL (13.7-17.5); LIPEMIA HEMOLYSIS FLAG 100 (0-99); MEAN CELL HEMOGLOBIN CONCENTR. 37.8 g/dL (32.4-36.7); PLATELET COUNT 32 10^3/uL (150-400)
[2017-08-29 21:35] LABS: HEMATOCRIT 16.4 % (40.0-51.0)
[2017-08-29 21:39] LABS: ADD DIFF? NO; ADD SCAN? NO
[2017-08-29 21:40] LABS: ADD MORPH? NO
[2017-08-29] MEDS: ALTEPLASE 2 MG VIAL IVP PRN (21:50)
[2017-08-29 21:54] LABS: ALANINE AMINOTRANSFERASE 23 IU/L (21-72); ALBUMIN 2.9 g/dL (3.5-5.0); ALKALINE PHOSPHATASE 51 IU/L (38-126); ANION GAP 8 mEq/L (8-16); ASPARTATE AMINOTRANSFERASE 16 IU/L (17-59); BILIRUBIN,TOTAL 0.4 mg/dL (0.1-1.4); CALCIUM 7.7 mg/dL (8.5-10.4); CARBON DIOXIDE 21 mEq/l (22-31); CHLORIDE 100 mEq/L (97-110); CREATININE 0.8 mg/dL (0.7-1.3); GLOMERULAR FILTRATION RATE > 60; GLUCOSE 129 mg/dL (70-100); LACTATE DEHYDROGENASE 431 IU/L (313-618); POTASSIUM 3.7 mEq/L (3.5-5.2); SODIUM 129 mEq/L (134-144); TOTAL PROTEIN 5.5 g/dL (6.3-8.2); URIC ACID 2.8 mg/dL (3.5-8.5)
[2017-08-30] MEDS: oxyCODONE IR 5 MG TAB PO PRN ×4 (00:13→23:52)
[2017-08-30] MEDS: ACETAMINOPHEN 325 MG TAB PO PRN ×6 (00:24→23:52)
[2017-08-30] MEDS: MEPERIDINE 25 MG/ML SYR IVP PRN ×3 (00:28→10:49)
[2017-08-30] MEDS: CEFEPIME HCL 2 GM in D5W 50 ML IV SCH ×2 (04:10→10:42)
[2017-08-30 05:30] LABS: ADD MORPH? NO; ATYPICAL LYMPHOCYTE FLAG 0 (0-99); FRAGMENT RBC FLAG 70 (0-99); HEMATOCRIT 18.8 % (40.0-51.0); LEFT SHIFT FLG 0 (0-99); LIPEMIA HEMOLYSIS FLAG 90 (0-99); MEAN CELL HEMOGLOBIN 33.8 pg (27.9-34.1); MEAN CELL HEMOGLOBIN CONCENTR. 37.2 g/dL (32.4-36.7); MEAN CELL VOLUME 90.8 fL (81.5-99.8); MEAN PLATELET VOLUME 9.9 fL (8.7-11.7); PLATELET CLUMPS FLAG 0 (0-99); RED BLOOD CELL COUNT 2.07 10^6/uL (4.40-6.38); RED CELL DISTRIBUTION WIDTH 13.7 % (11.5-15.2)
[2017-08-30 05:37] LABS: ADD DIFF? NO
[2017-08-30 05:39] LABS: ADD SCAN? YES; PLATELET COUNT 25 10^3/uL (150-400)
[2017-08-30 05:43] LABS: POTASSIUM 4.2 mEq/L (3.5-5.2)
[2017-08-30 05:44] LABS: ALANINE AMINOTRANSFERASE 23 IU/L (21-72); ALBUMIN 2.6 g/dL (3.5-5.0); ALKALINE PHOSPHATASE 54 IU/L (38-126); ANION GAP 8 mEq/L (8-16); ASPARTATE AMINOTRANSFERASE 14 IU/L (17-59); BILIRUBIN,TOTAL 0.6 mg/dL (0.1-1.4); CARBON DIOXIDE 24 mEq/l (22-31); CHLORIDE 101 mEq/L (97-110); CREATININE 0.8 mg/dL (0.7-1.3); GLOMERULAR FILTRATION RATE > 60; GLUCOSE 115 mg/dL (70-100); LACTATE DEHYDROGENASE 428 IU/L (313-618); SODIUM 133 mEq/L (134-144); TOTAL PROTEIN 5.9 g/dL (6.3-8.2); URIC ACID 2.9 mg/dL (3.5-8.5)
[2017-08-30 06:22] LABS: PLATELET ESTIMATE DECREASED (ADEQ)
[2017-08-30] MEDS: VANCOMYCIN 1.5 GM in D5W 250 ML IV SCH ×2 (07:06→19:30)
[2017-08-30] MEDS: ACYCLOVIR 400 MG TAB PO SCH ×2 (09:36→21:03)
[2017-08-30] MEDS: ALLOPURINOL 300 MG TAB PO SCH (09:36)
[2017-08-30] MEDS: FLUCONAZOLE 100 MG TAB PO SCH (09:36)
[2017-08-30] MEDS: SENNOSIDES/DOCUSATE SODIUM TAB PO SCH ×2 (10:11→21:10)
--- NOTE | 2017-08-30 10:29 | HOSPPROG ---
Hospitalist Progress Note Assessment/Plan: #Neutropenic fever: UA negative, blood culture pending. Zosyn/Vanc. CMV PCR pending with recent +IgM. -ppx Acyclovir, fluconazole -STD screening pending #KHAN: overnight. CTH negative #Anemia: blood transfusion today #Thrombocytopenia: no indication for platelets #AML: induction chemo. Monitor for TLS. Cont allopurinol #Diarrhea: C diff negative, but since persistent, check PCR, CT for typhlitis #Positive CMV IgM: check PCR today. #Back pain: improved #Pancytopenia: transfuse if Hb <7. Last transfusion 08/25 #Diet: start TPN with poor PO intake #DVT ppx: SCDs #Disp: warrants inpt admission with induction chemo/fever. Cont chemo, IV abx Subjective: KHAN overnight Objective: Vital Signs Temp Pulse Resp BP Pulse Ox 37.0 C 83 18 98/58 L 95 08/30/17 08:52 08/30/17 08:52 08/30/17 08:52 08/30/17 08:52 08/30/17 08:52 Microbiology 08/30/17 03:20 Gram Stain - Final Blood Bank [facility] 08/27/17 19:30 Urine Culture - Final Urine,Clean Catch Laboratory Results 08/30/17 05:10 08/30/17 05:05 08/29/17 08/30/17 08/31/17 06:59 05:59 05:59 Intake Total Output Total Balance PT 14.1 SEC (12.0-15.0) 08/22/17 12:45 INR 1.10 (0.83-1.16) 08/22/17 12:45 - Physical Exam Constitutional: other (pale) Ears, Nose, Mouth, Throat: dry mucous membranes Cardiovascular: regular rate and rhythym Respiratory: no respiratory distress, no rales or rhonchi Gastrointestinal: normoactive bowel sounds, soft, non-tender abdomen, No tenderness Genitourinary: no bladder fullness Skin: warm, No abrasion, No rash Musculoskeletal: full muscle strength, no muscle tenderness Neurologic: AAOx3, CN II-XII Intact Psychiatric: interacting appropriately ICD10 Worksheet Patient Problems: Problems Problem Status Onset Acute myeloid leukemia Acute Neutropenic fever Acute
[2017-08-30] MEDS ORDERED: NS 500 ML IV ONE (10:30)
[2017-08-30] MEDS ORDERED: D10W 1,000 ML IV PRN (10:36)
[2017-08-30] MEDS: NS 1,000 ML IV SCH (10:39)
--- NOTE | 2017-08-30 11:26 | SOAPPROG ---
SOAP Progress Note Assessment/Plan: Assessment: A/P: * AML: D8, 7+3 induction. FISH negative, molecular studies pending. Counts dropping appropriately. No evidence of tumor lysis.Chemo finishes today * Pancytopenia: due to marrow involvement. got 1 unit prbc last night with KHAN , ct scan negative, will get 2nd unit today * Neutropenic fever: Vanc/Cefepime started, prophylactic acyclovir, and fluconazole.Fever is persistent, bc from 08/27 pending. cmv pcr pending, if high and fevers persist may need to institute therapy, ID following * Back pain: improved since starting chemo, possibly related to marrow invasion * Supportive care: poor po intake, will start tpn today 08/30/17 11:23 Subjective: Fairly miserable, shaking Objective: Vital Signs Temp Pulse Resp BP Pulse Ox 98.6 F 83 18 98/58 L 95 08/30/17 08:52 08/30/17 08:52 08/30/17 08:52 08/30/17 08:52 08/30/17 08:52 Microbiology 08/30/17 03:20 Gram Stain - Final Blood Bank Comp[facility] 08/27/17 19:30 Urine Culture - Final Urine,Clean Catch Laboratory Results 08/30/17 05:10 08/30/17 05:05 08/29/17 08/30/17 08/31/17 06:59 05:59 05:59 Intake Total Output Total Balance PT 14.1 SEC (12.0-15.0) 08/22/17 12:45 INR 1.10 (0.83-1.16) 08/22/17 12:45 Physical Exam - Physical Exam General Appearance: moderate distress Respiratory: lungs clear Cardiac/Chest: regular rate, rhythm Abdomen: normal bowel sounds, non-tender Extremities: non-tender, other (right pic ok) ICD10 Worksheet Patient Problems: Problems Problem Status Onset Acute myeloid leukemia Acute Neutropenic fever Acute
--- NOTE | 2017-08-30 12:51 | PCMIDPN ---
Assessment/Plan: 1. Neutropenic fever in patient with recent diagnosis of AML on day 8 of induction chemotherapy: He continues to spike significant temperatures with associated rigors. He continues to have diarrhea as well, nonbloody. Because of this, will discontinue Cefepime and start Zosyn 4.5 g IV q.6 hours (pseudomonal dose) for better anaerobic coverage, and obtain CT scan of the abdomen and pelvis to look for evidence of neutropenic enterocolitis. Will obtain GI pathogen PCR as well. 2. CMV IgM positivity: Unclear significance. Patient does not have evidence of active CMV at this point in time. Liver function tests are normal. I did speak with Michael in microbiology, who told me that this test should be performed by Thursday at [place]. 3. Miscellaneous: Syphilis, gonorrhea, chlamydia and acute HIV testing pending. Subjective: Continues to have fevers with associated severe rigors. Patient continues to have diarrhea which is nonbloody. Feels that his abdomen is "sore "from the diarrhea, but no pain per se. Mild nausea, no vomiting. No cough, dysphagia, or odynophagia. No chest pain. No burning when he urinates. Was thought to perhaps have transfusion reaction last night, but this was ruled out. Patient complained of headache also last night prompting head CT in the setting of thrombocytopenia which was negative. Objective: Cefepime 2 g IV q.8 hours day 2 (previously was on 1 g IV q.8 hours) Vancomycin 1.5 g IV q.12 hours day 3 Fluconazole 200 mg daily Vital Signs Temp Pulse Resp BP Pulse Ox 38.1 C 102 H 18 98/58 L 94 08/30/17 11:58 08/30/17 11:58 08/30/17 11:58 08/30/17 11:58 08/30/17 11:58 Microbiology 08/30/17 03:20 Gram Stain - Final Blood Bank Componant 08/27/17 19:30 Urine Culture - Final Urine,Clean Catch Laboratory Results 08/30/17 05:10 08/30/17 05:05 08/29/17 08/30/17 08/31/17 06:59 05:59 05:59 Intake Total Output Total Balance August 30 blood cultures x2 pending Previous blood cultures negative - Physical Exam General Appearance: alert, no apparent distress EENT: pharynx normal, other (No evidence of thrush or mucositis.), No scleral icterus Respiratory: lungs clear Cardiac/Chest: regular rate, rhythm, systolic murmur Extremities: other (PICC line right upper extremity looks fine.) Abdomen: non-tender, soft, other (Hypoactive bowel sounds.), No distended Skin: other (Multiple tattoos.), No rash Neuro/Psych: no motor/sensory deficits, alert, oriented x 3 ICD10 Worksheet Patient Problems: Problems Problem Status Onset Acute myeloid leukemia Acute Neutropenic fever Acute
[2017-08-30] MEDS: PIPERACILLIN/TAZO 4.5 GM/DEX 100 ML IV SCH ×3 (14:25→23:21)
[2017-08-30] MEDS ORDERED: IOPAMIDOL (ISOVUE-300) 100 ML BTL ONE (18:39)
[2017-08-30] MEDS: LOPERAMIDE HCL 2 MG CAP PO PRN (21:03)
--- NOTE | 2017-08-30 22:05 | HOSPPROG ---
Hospitalist Progress Note Assessment/Plan: Called by radiology with CT finding of prominent appendix Case reviewed with Dr. Edgar - appendix very prominent without inflammation ( possible due to immune suppression) We will continue monitor tonight Dr. Edgar will see in am or before if clinical status changes Objective: Vital Signs Temp Pulse Resp BP Pulse Ox 37.5 C 88 16 105/55 L 93 08/30/17 19:57 08/30/17 19:57 08/30/17 19:57 08/30/17 19:57 08/30/17 19:57 Microbiology 08/30/17 03:20 Gram Stain - Final Blood Bank [facility] Laboratory Results 08/30/17 05:10 08/30/17 05:05 08/29/17 08/30/17 08/31/17 06:59 05:59 05:59 Intake Total 1900 Output Total Balance 1900 PT 14.1 SEC (12.0-15.0) 08/22/17 12:45 INR 1.10 (0.83-1.16) 08/22/17 12:45 ICD10 Worksheet Patient Problems: Problems Problem Status Onset Acute myeloid leukemia Acute Neutropenic fever Acute
[2017-08-30] MEDS: TPN 1 EA BAG IV SCH (22:15)
[2017-08-31] MEDS: MEPERIDINE 25 MG/ML SYR IVP PRN ×3 (00:12→22:38)
[2017-08-31] MEDS: PROCHLORPERAZINE MALEATE 10 MG TAB PO PRN (02:13)
[2017-08-31] MEDS: ACETAMINOPHEN 325 MG TAB PO PRN ×5 (04:06→22:35)
[2017-08-31 04:08] LABS: ADD MORPH? NO; ATYPICAL LYMPHOCYTE FLAG 0 (0-99); FRAGMENT RBC FLAG 0 (0-99); HEMATOCRIT 19.3 % (40.0-51.0); HEMOGLOBIN 7.2 g/dL (13.7-17.5); LIPEMIA HEMOLYSIS FLAG 90 (0-99); MEAN CELL HEMOGLOBIN 33.5 pg (27.9-34.1); MEAN CELL HEMOGLOBIN CONCENTR. 37.3 g/dL (32.4-36.7); MEAN CELL VOLUME 89.8 fL (81.5-99.8); MEAN PLATELET VOLUME 13.7 fL (8.7-11.7); PLATELET CLUMPS FLAG 0 (0-99); RED BLOOD CELL COUNT 2.15 10^6/uL (4.40-6.38); RED CELL DISTRIBUTION WIDTH 13.7 % (11.5-15.2)
[2017-08-31 04:09] LABS: INR 1.17 (0.83-1.16); PROTIME(PATIENT) 14.9 SEC (12.0-15.0)
[2017-08-31 04:11] LABS: PLATELET COUNT 10 10^3/uL (150-400)
[2017-08-31 04:13] LABS: ADD DIFF? NO
[2017-08-31] MEDS: oxyCODONE IR 5 MG TAB PO PRN ×5 (04:31→22:35)
[2017-08-31 04:40] LABS: ALANINE AMINOTRANSFERASE 24 IU/L (21-72); ALBUMIN 2.9 g/dL (3.5-5.0); ALKALINE PHOSPHATASE 55 IU/L (38-126); ANION GAP 9 mEq/L (8-16); ASPARTATE AMINOTRANSFERASE 16 IU/L (17-59); BILIRUBIN,TOTAL 0.5 mg/dL (0.1-1.4); CALCIUM 7.9 mg/dL (8.5-10.4); CARBON DIOXIDE 23 mEq/l (22-31); CHLORIDE 100 mEq/L (97-110); CREATININE 0.9 mg/dL (0.7-1.3); GLOMERULAR FILTRATION RATE > 60; GLUCOSE 112 mg/dL (70-100); POTASSIUM 3.8 mEq/L (3.5-5.2); SODIUM 132 mEq/L (134-144); TOTAL PROTEIN 5.7 g/dL (6.3-8.2); TRIGLYCERIDE 108 mg/dL (40-150)
[2017-08-31 05:05] LABS: PLATELET ESTIMATE DECREASED (ADEQ)
[2017-08-31 05:06] LABS: ADD SCAN? YES; LEFT SHIFT FLG 0 (0-99)
[2017-08-31] MEDS: PIPERACILLIN/TAZO 4.5 GM/DEX 100 ML IV SCH ×4 (05:16→23:35)
[2017-08-31] MEDS: VANCOMYCIN 1.5 GM in D5W 250 ML IV SCH ×2 (06:38→18:36)
--- NOTE | 2017-08-31 08:32 | HOSPPROG ---
Hospitalist Progress Note Assessment/Plan: #Neutropenic fever: persistent. CT showed enlarged appendix, reviewed by Dr. Edgar, not inflammed. Vanc/Zosyn. Add micafungin with persistent fevers -CMV PCR pending with recent +IgM. -STD screening pending #KHAN: CTH negative #Anemia/thrombocytopenia: transfuse today #AML: induction chemo. Monitor for TLS. Cont allopurinol #Diarrhea: likely form chemo C diff negative, but since persistent, no abscess on CT. CMV PCR pending #Positive CMV IgM: PCR pending #Back pain: improved #Pancytopenia: transfuse today #Diet: start TPN with poor PO intake #DVT ppx: SCDs #Disp: warrants inpt admission with induction chemo/fever. Cont chemo, IV abx Subjective: still having diffuse diarrhea, no abominal pain Objective: Vital Signs Temp Pulse Resp BP Pulse Ox 36.9 C 102 H 16 112/70 96 08/31/17 08:26 08/31/17 03:37 08/31/17 04:10 08/31/17 03:37 08/31/17 04:10 Microbiology 08/30/17 19:11 Gastrointestinal Tract Panel (PCR) - Final Stool No Organism Detected 08/30/17 03:20 Gram Stain - Final Blood Bank [facility] Laboratory Results 08/31/17 03:52 08/31/17 03:52 08/30/17 08/31/17 09/01/17 05:59 05:59 05:59 Intake Total 2500 Output Total 750 Balance 1750 PT 14.9 SEC (12.0-15.0) 08/31/17 03:52 INR 1.17 (0.83-1.16) H 08/31/17 03:52 - Physical Exam Constitutional: other (brighter today, smiling a bit) Eyes: PERRL Ears, Nose, Mouth, Throat: moist mucous membranes, hearing normal, No oral thrush, No oral ulcer Cardiovascular: regular rate and rhythym, no murmur, rub, or gallop Respiratory: no respiratory distress, no rales or rhonchi Gastrointestinal: normoactive bowel sounds, soft, non-tender abdomen, no palpable masses, No tenderness Genitourinary: no bladder fullness Skin: warm Musculoskeletal: full muscle strength Neurologic: AAOx3, CN II-XII Intact Psychiatric: interacting appropriately ICD10 Worksheet Patient Problems: Problems Problem Status Onset Acute myeloid leukemia Acute Neutropenic fever Acute
--- NOTE | 2017-08-31 09:35 | SOAPPROG ---
SOAP Progress Note Assessment/Plan: Assessment: 1. AML. normal FISH/cyto; molecular studies pending. day 9 after 7+3 induction 2. Febrile neutropenia, since 08/29 3. Pancytopenia 4. Poor PO intake 5. CMV IgM+ Plan: - transfuse platelets (irradiated) - consider adding micafungin given F&Nx 3 days. will d/w ID - if CMV PCR+, will add more effective antiviral Rx (currently on acyclovir prophylaxis) - encourage PO intake - would like to be able to stop TPN if possible - will need day 14 BMBx this Thursday or possibly Thursday - post-remission Rx (consolidation HiDAC vs alloSCT) will depend on molecular studies, which are pending 30 min spent w/ pt and in coordination of care 08/31/17 09:32 Subjective: feels somewhat better. more appetite, less nausea. Objective: exam: Gen tired, NAD HEENT: no mucositis. small white plaque in posterior pharynx - thrush? Lungs CTAB CV RRR no MGR Abd: +BS NT ND Ext: 1+ edema Skin: no petechie, purpura Neuro: a+ox3 Vital Signs Temp Pulse Resp BP Pulse Ox 36.9 C 100 20 118/62 97 08/31/17 08:45 08/31/17 08:45 08/31/17 08:45 08/31/17 08:45 08/31/17 08:45 Microbiology 08/30/17 19:11 Gastrointestinal Tract Panel (PCR) - Final Stool No Organism Detected 08/30/17 03:20 Gram Stain - Final Blood Bank [facility] Laboratory Results 08/31/17 03:52 08/31/17 03:52 08/30/17 08/31/17 09/01/17 05:59 05:59 05:59 Intake Total 2500 Output Total 750 Balance 1750 PT 14.9 SEC (12.0-15.0) 08/31/17 03:52 INR 1.17 (0.83-1.16) H 08/31/17 03:52 ICD10 Worksheet Patient Problems: Problems Problem Status Onset Acute myeloid leukemia Acute Neutropenic fever Acute
[2017-08-31] MEDS ORDERED: POTASSIUM Cl (KCl) 10 MEQ in NS 100 ML IV ONE (10:00)
[2017-08-31] MEDS: ALLOPURINOL 300 MG TAB PO SCH (10:18)
[2017-08-31] MEDS: ACYCLOVIR 400 MG TAB PO SCH ×2 (10:18→20:48)
[2017-08-31] MEDS: FLUCONAZOLE 100 MG TAB PO SCH (10:18)
[2017-08-31] MEDS: SENNOSIDES/DOCUSATE SODIUM TAB PO SCH (10:19)
[2017-08-31 12:23] LABS: CHLAMYDIA AMPLIFICATION GENPRB NEGATIVE (NEGATIVE)
[2017-08-31 13:17] LABS: GLUCOSE 103 mg/dL (70-100)
--- NOTE | 2017-08-31 14:16 | PCMIDPN ---
Assessment/Plan: Assessment/Plan: * Neutropenic fever in the setting of AML status post induction chemotherapy: Persistent fever and neutropenia. CT of abdomen and pelvis with thickened appendix but no localizing pain in right lower quadrant. Appreciate surgical evaluation. Will change fluconazole to micafungin given persistent fever. Will not modify vancomycin dose given no gram-positive franny isolated and no mucositis present. Continue empiric Zosyn. * Diarrhea: CT without evidence of neutropenic enterocolitis. GI pathogen panel by PCR negative. * Positive CMV IgM: CMV PCR pending to assess for viremia versus possibility of false positive IgM which is not uncommon. Will hold off on addition of ganciclovir pending PCR findings. * Rash: Appears petechial and likely related to thrombocytopenia. 08/31/17 14:09 08/31/17 14:18 Subjective: Patient complains of diarrhea-2 to 3 episodes per day. No abdominal pain. Objective: Vital Signs Temp Pulse Resp BP Pulse Ox 36.9 C 100 20 118/62 97 08/31/17 08:45 08/31/17 08:45 08/31/17 08:45 08/31/17 08:45 08/31/17 08:45 Microbiology 08/30/17 19:11 Gastrointestinal Tract Panel (PCR) - Final Stool No Organism Detected Laboratory Results 08/31/17 03:52 08/31/17 12:53 08/30/17 08/31/17 09/01/17 05:59 05:59 05:59 Intake Total 2500 Output Total 750 Balance 1750 Zosyn # 2, antibiotics # 4 Vancomycin # 4 Prophylactic fluconazole/acyclovir Blood cultures 08/30/2017 no growth GI pathogen panel by PCR negative CT scan abdomen and pelvis with thickened appendix - Physical Exam General Appearance: alert, no apparent distress EENT: other (No mucositis), No scleral icterus, No thrush Respiratory: lungs clear, No respiratory distress Cardiac/Chest: tachycardia, systolic murmur (2/6 left and right upper sternal border) Extremities: No inflammation Abdomen: non-tender, No distended Skin: rash (Petechial appearing rash over lower extremities with more follicular appearance located over upper chest and abdomen) - Line/s RUE PICC Lines: No drainage, No erythema ICD10 Worksheet Patient Problems: Problems Problem Status Onset Acute myeloid leukemia Acute Neutropenic fever Acute
--- NOTE | 2017-08-31 14:40 | ASMTCMCOM ---
CM Note CM Note Notes: Patient still very ill and not open to talking today. Will follow with patient on Thursday to offer support. Case management will follow. Date Signed: 08/31/2017 02:39 PM Electronically Signed By:JOSÉ Fabian
[2017-08-31] MEDS: MICAFUNGIN NA 100 MG in NS 100 ML IV SCH (16:56)
[2017-08-31] MEDS: TPN 1 EA BAG IV SCH (20:49)
[2017-08-31] MEDS: NS 1,000 ML IV SCH (22:41)
--- NOTE | 2017-08-31 23:54 | SOAPPROG ---
SOAP Progress Note Assessment/Plan: Assessment: 42 MALE WITH NEUTROPENIC FEVER AND QUESTION OF APPENDICITIS CT SHOWS ENLARGED BUT NOT IMFLAMED APPENDIX ABD SOFT WITH NO LOCALIZING TENDERNESS, NO HERNIAS HEENT NONICTERIC/ CHEST CLEAR EXTR OK NO REAL SIGNS OF APPENDICITIS BUT VERY NEUTROPENIC POOR SURGICAL CANDIDATE WITH ANC 250 RISKS AND OPTIONS FULLY DISCUSSED Plan:FOLLOW CLOSELY AND WATCH FOR PERITONEAL SIGNS NEUTROPENIA RESOLVES 08/31/17 23:50 Objective: Vital Signs Temp Pulse Resp BP Pulse Ox 38.4 C H 98 17 108/62 96 08/31/17 23:34 08/31/17 23:34 08/31/17 23:34 08/31/17 23:34 08/31/17 23:34 Microbiology 08/30/17 19:11 Gastrointestinal Tract Panel (PCR) - Final Stool No Organism Detected Laboratory Results 08/31/17 03:52 08/31/17 12:53 08/30/17 08/31/17 09/01/17 05:59 05:59 05:59 Intake Total 2500 900 Output Total 750 400 Balance 1750 500 PT 14.9 SEC (12.0-15.0) 08/31/17 03:52 INR 1.17 (0.83-1.16) H 08/31/17 03:52 ICD10 Worksheet Patient Problems: Problems Problem Status Onset Acute myeloid leukemia Acute Neutropenic fever Acute
[2017-09-01] MEDS: SENNOSIDES/DOCUSATE SODIUM TAB PO SCH ×2 (01:32→18:33)
[2017-09-01] MEDS: oxyCODONE IR 5 MG TAB PO PRN ×6 (02:30→23:52)
[2017-09-01] MEDS: ACETAMINOPHEN 325 MG TAB PO PRN ×6 (02:30→23:52)
[2017-09-01] MEDS: PIPERACILLIN/TAZO 4.5 GM/DEX 100 ML IV SCH ×4 (05:57→23:48)
[2017-09-01] MEDS: VANCOMYCIN 1.5 GM in D5W 250 ML IV SCH (06:15)
[2017-09-01 06:33] LABS: ATYPICAL LYMPHOCYTE FLAG 0 (0-99); FRAGMENT RBC FLAG 0 (0-99); HEMATOCRIT 18.7 % (40.0-51.0); LEFT SHIFT FLG 0 (0-99); LIPEMIA HEMOLYSIS FLAG 90 (0-99); MEAN CELL HEMOGLOBIN 33.2 pg (27.9-34.1); MEAN CELL HEMOGLOBIN CONCENTR. 36.9 g/dL (32.4-36.7); MEAN CELL VOLUME 89.9 fL (81.5-99.8); MEAN PLATELET VOLUME 9.2 fL (8.7-11.7); PLATELET CLUMPS FLAG 10 (0-99); RED BLOOD CELL COUNT 2.08 10^6/uL (4.40-6.38); RED CELL DISTRIBUTION WIDTH 13.8 % (11.5-15.2)
[2017-09-01 06:34] LABS: HEMOGLOBIN 6.9 g/dL (13.7-17.5)
[2017-09-01 06:36] LABS: ADD MORPH? NO
[2017-09-01 06:37] LABS: ADD SCAN? NO; PLATELET COUNT 18 10^3/uL (150-400)
[2017-09-01 06:38] LABS: ADD DIFF? NO
[2017-09-01 06:40] LABS: INR 1.13 (0.83-1.16); PROTIME(PATIENT) 14.4 SEC (12.0-15.0)
[2017-09-01 06:41] LABS: APTT 44.9 SEC (23.0-38.0)
[2017-09-01 06:48] LABS: ALANINE AMINOTRANSFERASE 28 IU/L (21-72); ALBUMIN 2.7 g/dL (3.5-5.0); ALKALINE PHOSPHATASE 51 IU/L (38-126); ANION GAP 7 mEq/L (8-16); ASPARTATE AMINOTRANSFERASE 15 IU/L (17-59); BILIRUBIN,TOTAL 0.3 mg/dL (0.1-1.4); CALCIUM 7.7 mg/dL (8.5-10.4); CARBON DIOXIDE 26 mEq/l (22-31); CHLORIDE 101 mEq/L (97-110); CREATININE 0.7 mg/dL (0.7-1.3); GLOMERULAR FILTRATION RATE > 60; GLUCOSE 113 mg/dL (70-100); MAGNESIUM 2.1 mg/dL (1.6-2.3); POTASSIUM 3.8 mEq/L (3.5-5.2); SODIUM 134 mEq/L (134-144); TOTAL PROTEIN 5.3 g/dL (6.3-8.2)
[2017-09-01 06:58] LABS: PLATELET ESTIMATE DECREASED (ADEQ)
--- NOTE | 2017-09-01 09:40 | SOAPPROG ---
SOAP Progress Note Assessment/Plan: Assessment: 1. AML. normal FISH/cyto; molecular studies pending. day 10 after 7+3 induction 2. Febrile neutropenia, since 08/29 3. Pancytopenia 4. Poor PO intake 5. CMV IgM+ Plan: - transfuse 2 units RBC - continue current abx (zosyn, micafungin, acyclovir). Still febrile but fever curve coming down. - will stop TPN - he should be able to get adequate nutrition PO - BMBx this Thursday (day 14) - we discussed the timeline for this hospitalization and also for post- remission therapy (consolidation chemo vs alloSCT in CR1) This depends in part on the results of molecular studies on the bone marrow which are still pending. We discussed the impact on work and his hobbies (a band and snowboarding.) 45 min spent w/ pt and in coordination of care. Subjective: feels better today. Objective: exam: NAD pale Lungs CTAB CV RRR no MGR Abd: +BS NT ND Ext: 1+ edema Skin: some petechie on feet Vital Signs Temp Pulse Resp BP Pulse Ox 37.1 C 88 18 100/68 97 09/01/17 09:29 09/01/17 09:29 09/01/17 09:29 09/01/17 09:29 09/01/17 09:29 Microbiology 08/30/17 19:11 Gastrointestinal Tract Panel (PCR) - Final Stool No Organism Detected Laboratory Results 09/01/17 06:12 09/01/17 06:12 08/31/17 09/01/17 09/02/17 05:59 05:59 05:59 Intake Total 2500 3726 Output Total 750 800 Balance 1750 2926 PT 14.4 SEC (12.0-15.0) 09/01/17 06:12 INR 1.13 (0.83-1.16) 09/01/17 06:12 ICD10 Worksheet Patient Problems: Problems Problem Status Onset Acute myeloid leukemia Acute Neutropenic fever Acute
[2017-09-01] MEDS: ALLOPURINOL 300 MG TAB PO SCH (10:46)
[2017-09-01] MEDS: ACYCLOVIR 400 MG TAB PO SCH ×2 (10:46→20:03)
[2017-09-01] MEDS: MICAFUNGIN NA 100 MG in NS 100 ML IV SCH (10:46)
[2017-09-01 12:56] LABS: HIV-1 RNA PCR < 1.00 copy/mL (<20)
--- NOTE | 2017-09-01 13:42 | SOAPPROG ---
SOAP Progress Note Assessment/Plan: Assessment/Plan: 42 Y M AML, pancytopenia. Neutropenic fever, chills. Query appendicitis on abd/pel CT. Seen early this am in case of need for surgery. Sitting OOB on couch, eating regular breakfast, denies abdominal pain, N/V. Has had fevers/chills--none overnight. Abdomen is soft, NT. Will continue to follow. Doubt appendicitis. Poor surgical candidate. Will d/w Dr. Edgar. Continue care per other teams. 09/01/17 13:40 Objective: Vital Signs Temp Pulse Resp BP Pulse Ox 37.4 C 99 18 104/60 95 09/01/17 12:17 09/01/17 12:17 09/01/17 12:17 09/01/17 12:17 09/01/17 12:17 Laboratory Results 09/01/17 06:12 09/01/17 06:12 08/31/17 09/01/17 09/02/17 05:59 05:59 05:59 Intake Total 2500 3726 Output Total 750 800 Balance 1750 2926 PT 14.4 SEC (12.0-15.0) 09/01/17 06:12 INR 1.13 (0.83-1.16) 09/01/17 06:12 ICD10 Worksheet Patient Problems: Problems Problem Status Onset Acute myeloid leukemia Acute Neutropenic fever Acute
--- NOTE | 2017-09-01 16:43 | PCMIDPN ---
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 Neutropenia persists w ANC = 0. Day #6 of neutropenic fever and micafungin added yesterday. Diarrhea stable. Blood cx 08/30, 08/27 are NGTD --continue Zosyn, micafungin --dc vancomycin, no gram positive organisms isolated. PICC line new 08/22 --no further diagnostic studies at this time # Diarrhea without abdominal pain: CT only showed possible appendicitis but in absence of abdominal pain, monitoring clinically. GI pathogen panel by PCR negative which include cdiff. # Positive CMV IgM: CMV PCR negative; repeat serology when ANC recovers # Rash on trunch: Appears petechial and likely related to thrombocytopenia. # Mild mucositis: No evidence of thrush, minimal pain # Pancytopenia: one consideration is rate of thrombocytopenia as high as 30% with zosyn, could consider change cefepime + flagyl Antibiotics # 5 zosyn 4.5 gm IV qh #3 Vancomycin IV, # 5 micafungin #2 Subjective: Patient reports he is feeling pretty well. Still with 2-3 episodes of diarrhea daily. Appetite is okay reports that it is slightly improved today. Denies facial pain or sinus pressure Objective: Vital Signs Temp Pulse Resp BP Pulse Ox 36.8 C 76 18 96/66 L 94 09/01/17 16:36 09/01/17 16:36 09/01/17 16:36 09/01/17 16:36 09/01/17 16:36 Laboratory Results 09/01/17 06:12 09/01/17 06:12 08/31/17 09/01/17 09/02/17 05:59 05:59 05:59 Intake Total 2500 3726 Output Total 750 800 Balance 1750 2926 Laboratory Tests 08/29/17 08/30/17 08/31/17 10:30 09:05 17:15 CMV DNA Detection Undetected HIV-1 RNA PCR copies/ml < 1.00 A. galactomannan Ag Pending - Physical Exam General Appearance: WD/WN, alert, no apparent distress EENT: pale conjunctiva, other (2 oral ulcerations in the posterior pharynx ; sinuses nontender), No scleral icterus, No thrush Respiratory: lungs clear, No accessory muscle use Neck: supple Cardiac/Chest: regular rate, rhythm Extremities: No pedal edema Abdomen: normal bowel sounds, non-tender, soft Skin: pallor, other (Petechial rash on upper thigh, maculopapular to petechial rash on chest and back), No diaphoresis, No jaundice, No erythema Neuro/Psych: alert, normal mood/affect, oriented x 3 - Line/s RUE PICC Lines: No drainage, No erythema - Time Spent With Patient Time Spent with Patient: greater than 35 minutes Time Spent with Patient: Greater than 35 minutes spent on this patients care, greater than 50% of time spent counseling, educating, and coordinating care regarding the above mentioned plan. ICD10 Worksheet Patient Problems: Problems Problem Status Onset Acute myeloid leukemia Acute Neutropenic fever Acute
--- NOTE | 2017-09-01 17:15 | HOSPPROG ---
Hospitalist Progress Note Assessment/Plan: 42 yo M with AML here for induction chemo complicated by neutropenic fever * AML - post induction chemo, onc following, complications as next * Neutropenic fever -has had persistent fever last this am, fever curve seems to be trending down -continue on micafungin, zosyn and now s/p vanc * diarrhea: without abdominal pain and GI pathogen panel negative * pancytopenia -continue to transfuse prn hgb < 7, plt < 10, monitoring * petechial rash: likely due to low platelet count * mucositis: without much pain, continue oral care, will add oral lidocaine if needed * CMV IgM positive - will need to repeat serologies * IP status Subjective: no significant overnight events, patient currently feeling better than yesterday, not eating much Objective: Vital Signs Temp Pulse Resp BP Pulse Ox 36.8 C 76 18 96/66 L 94 09/01/17 16:36 09/01/17 16:36 09/01/17 16:36 09/01/17 16:36 09/01/17 16:36 Laboratory Results 09/01/17 06:12 09/01/17 06:12 08/31/17 09/01/17 09/02/17 05:59 05:59 05:59 Intake Total 2500 3726 Output Total 750 800 Balance 1750 2926 PT 14.4 SEC (12.0-15.0) 09/01/17 06:12 INR 1.13 (0.83-1.16) 09/01/17 06:12 awake alert pale anicteric op clear rrr no mrg cta b soft nt nt no cce warm dry well perfused oriented appropriate - Time Spent With Patient Time Spent with Patient: greater than 35 minutes Time Spent with Patient: Greater than 35 minutes spent on this patients care, greater than 50% of time spent counseling, educating, and coordinating care regarding the above mentioned plan. ICD10 Worksheet Patient Problems: Problems Problem Status Onset Neutropenic fever Acute Acute myeloid leukemia Acute
[2017-09-01] MEDS: MEPERIDINE 25 MG/ML SYR IVP PRN (19:59)
[2017-09-01] MEDS: LOPERAMIDE HCL 2 MG CAP PO PRN (20:10)
[2017-09-02] MEDS: PIPERACILLIN/TAZO 4.5 GM/DEX 100 ML IV SCH ×3 (05:18→17:54)
[2017-09-02] MEDS: ACETAMINOPHEN 325 MG TAB PO PRN ×5 (05:28→21:53)
[2017-09-02] MEDS: oxyCODONE IR 5 MG TAB PO PRN ×5 (05:28→21:53)
[2017-09-02 05:45] LABS: ATYPICAL LYMPHOCYTE FLAG 0 (0-99); FRAGMENT RBC FLAG 0 (0-99); HEMATOCRIT 22.5 % (40.0-51.0); HEMOGLOBIN 8.3 g/dL (13.7-17.5); LEFT SHIFT FLG 0 (0-99); LIPEMIA HEMOLYSIS FLAG 90 (0-99); MEAN CELL HEMOGLOBIN 32.3 pg (27.9-34.1); MEAN CELL HEMOGLOBIN CONCENTR. 36.9 g/dL (32.4-36.7); MEAN CELL VOLUME 87.5 fL (81.5-99.8); MEAN PLATELET VOLUME 10.5 fL (8.7-11.7); PLATELET CLUMPS FLAG 0 (0-99); RED BLOOD CELL COUNT 2.57 10^6/uL (4.40-6.38); RED CELL DISTRIBUTION WIDTH 15.6 % (11.5-15.2)
[2017-09-02 05:51] LABS: ADD SCAN? NO; PLATELET COUNT 12 10^3/uL (150-400)
[2017-09-02 05:56] LABS: ADD DIFF? NO
[2017-09-02 06:01] LABS: ALANINE AMINOTRANSFERASE 27 IU/L (21-72); ALBUMIN 2.5 g/dL (3.5-5.0); ALKALINE PHOSPHATASE 85 IU/L (38-126); ANION GAP 9 mEq/L (8-16); ASPARTATE AMINOTRANSFERASE 19 IU/L (17-59); BILIRUBIN,TOTAL 0.8 mg/dL (0.1-1.4); CALCIUM 8.1 mg/dL (8.5-10.4); CARBON DIOXIDE 27 mEq/l (22-31); CHLORIDE 104 mEq/L (97-110); CREATININE 0.8 mg/dL (0.7-1.3); GLOMERULAR FILTRATION RATE > 60; GLUCOSE 97 mg/dL (70-100); MAGNESIUM 2.2 mg/dL (1.6-2.3); POTASSIUM 4.3 mEq/L (3.5-5.2); SODIUM 140 mEq/L (134-144); TOTAL PROTEIN 5.5 g/dL (6.3-8.2)
[2017-09-02 06:11] LABS: INR 1.15 (0.83-1.16); PROTIME(PATIENT) 14.7 SEC (12.0-15.0)
[2017-09-02 06:12] LABS: APTT 43.9 SEC (23.0-38.0)
[2017-09-02 06:38] LABS: ADD MORPH? YES
[2017-09-02 06:40] LABS: PLATELET ESTIMATE DECREASED (ADEQ)
--- NOTE | 2017-09-02 07:56 | SOAPPROG ---
SOAP Progress Note Assessment/Plan: Assessment/Plan: 42 Y M AML, pancytopenia. Neutropenic fever, chills. Query appendicitis on abd/pel CT. Afebrile overnight. Still no abdominal pain. Doubt need for surgical intervention. Will sign off for now, but happy to help if questions/concerns. Thanks. 09/02/17 07:56 Objective: Vital Signs Temp Pulse Resp BP Pulse Ox 36.8 C 89 18 99/68 L 95 09/02/17 04:00 09/02/17 04:00 09/02/17 04:00 09/02/17 04:00 09/02/17 04:00 Laboratory Results 09/02/17 05:35 09/02/17 05:35 09/01/17 09/02/17 09/03/17 05:59 05:59 05:59 Intake Total 3726 1350 Output Total 800 2250 Balance 2926 -900 PT 14.7 SEC (12.0-15.0) 09/02/17 05:35 INR 1.15 (0.83-1.16) 09/02/17 05:35 ICD10 Worksheet Patient Problems: Problems Problem Status Onset Acute myeloid leukemia Acute Neutropenic fever Acute
[2017-09-02] MEDS: ALLOPURINOL 300 MG TAB PO SCH (08:25)
[2017-09-02] MEDS: ACYCLOVIR 400 MG TAB PO SCH ×2 (08:25→21:53)
--- NOTE | 2017-09-02 09:49 | SOAPPROG ---
SOAP Progress Note Assessment/Plan: Assessment: 1. AML. normal FISH/cyto; molecular studies pending. day 11 after 7+3 induction 2. Febrile neutropenia, since 08/29 3. Pancytopenia 4. Poor PO intake 5. CMV IgM+ -- CMV PCR negative. Plan: - no transfusion today; will likely need platelets tomorrow - continue current abx (zosyn, micafungin, acyclovir). no evidence of active CMV infection. - BMBx this Thursday (day 14) Subjective: feels better today. appetite improved, less nausea, no fevers. Objective: exam: NAD a few patches of mucositis in posterior oropharynx Lungs CTAB CV RRR no MGR Abd: +BS NT ND Ext: 1+ edema Skin: no new petechie Neuro: a+ox3 Vital Signs Temp Pulse Resp BP Pulse Ox 36.8 C 91 16 98/60 L 96 09/02/17 08:55 09/02/17 08:55 09/02/17 08:55 09/02/17 08:55 09/02/17 08:55 Microbiology 08/27/17 18:55 Blood Culture - Final Blood 08/27/17 19:00 Blood Culture - Final Blood Laboratory Results 09/02/17 05:35 09/02/17 05:35 09/01/17 09/02/17 09/03/17 05:59 05:59 05:59 Intake Total 3726 1350 Output Total 800 2250 350 Balance 2926 -900 -350 PT 14.7 SEC (12.0-15.0) 09/02/17 05:35 INR 1.15 (0.83-1.16) 09/02/17 05:35 ICD10 Worksheet Patient Problems: Problems Problem Status Onset Acute myeloid leukemia Acute Neutropenic fever Acute
[2017-09-02] MEDS: MICAFUNGIN NA 100 MG in NS 100 ML IV SCH (09:52)
[2017-09-02] MEDS: LOPERAMIDE HCL 2 MG CAP PO PRN (10:59)
--- NOTE | 2017-09-02 11:30 | PCMIDPN ---
Assessment/Plan: Assessment: neutropenic fever in patient undergoing AML induction. No new complaints. Patient is actually feeling much better clinically. No new fevers. Will continue Zosyn and micafungin as well as acyclovir. Watch for improvement on his counts. Suspect that the appendiceal inflammation seen in the CT does not indicate a surgical appendicitis. Plan: 1) Continue current antibiotic regimen. 2) Follow temperature curve and white blood cell counts. Subjective: Patient doing much better today. No new fevers or chills. Objective: Zosyn # 3 Micafungin # 3 Acyclovir -- chronic Vital Signs Temp Pulse Resp BP Pulse Ox 36.8 C 91 16 98/60 L 96 09/02/17 08:55 09/02/17 08:55 09/02/17 08:55 09/02/17 08:55 09/02/17 08:55 Microbiology 08/27/17 18:55 Blood Culture - Final Blood 08/27/17 19:00 Blood Culture - Final Blood Laboratory Results 09/02/17 05:35 09/02/17 05:35 09/01/17 09/02/17 09/03/17 05:59 05:59 05:59 Intake Total 3726 1350 Output Total 800 2250 350 Balance 2926 -900 -350 - Physical Exam General Appearance: WD/WN, alert, no apparent distress, non-toxic Respiratory: lungs clear, normal breath sounds, No respiratory distress Cardiac/Chest: regular rate, rhythm, No tachycardia Extremities: non-tender, normal inspection Skin: normal color, warm/dry, rash Neuro/Psych: alert, normal mood/affect, oriented x 3 ICD10 Worksheet Patient Problems: Problems Problem Status Onset Acute myeloid leukemia Acute Neutropenic fever Acute
--- NOTE | 2017-09-02 14:37 | HOSPPROG ---
Hospitalist Progress Note Assessment/Plan: 42 yo M with AML here for induction chemo complicated by neutropenic fever * AML - post induction chemo, onc following, complications as next * Neutropenic fever -afebrile now since am of 09/01, feeling a bit better, had 6 days of persistent fever prior to this -continued on micafungin, zosyn and s/p vanc -cultures negative, no localizing sxs * diarrhea: without abdominal pain and GI pathogen panel negative * pancytopenia -continue to transfuse prn hgb < 7, plt < 10, monitoring -ANC remains essentially zero, h/h stable s/p transfusion of 7 units total since admit, plts low at 12 * petechial rash: likely due to low platelet count, not improving * mucositis: without much pain, continue oral care, will add oral lidocaine if needed,lesions appear stable overnight * CMV IgM positive - will need to repeat serologies * IP status * dispo: IP status, will need improved counts and no further fever prior to dc Subjective: no significant overnight events, feeling bored, still with lack of energy Objective: Vital Signs Temp Pulse Resp BP Pulse Ox 36.7 C 80 16 104/66 95 09/02/17 12:00 09/02/17 12:00 09/02/17 12:00 09/02/17 12:00 09/02/17 12:00 Microbiology 08/27/17 18:55 Blood Culture - Final Blood 08/27/17 19:00 Blood Culture - Final Blood Laboratory Results 09/02/17 05:35 09/02/17 05:35 09/01/17 09/02/17 09/03/17 05:59 05:59 05:59 Intake Total 3726 1350 Output Total 800 2250 350 Balance 2926 -900 -350 PT 14.7 SEC (12.0-15.0) 09/02/17 05:35 INR 1.15 (0.83-1.16) 09/02/17 05:35 awake alert pale anicteric op clear rrr no mrg cta b soft nt nt no cce warm dry well perfused, diffuse petechial rash chest/legs/some on back oriented appropriate ICD10 Worksheet Patient Problems: Problems Problem Status Onset Acute myeloid leukemia Acute Neutropenic fever Acute
--- NOTE | 2017-09-02 15:21 | ASMTCMCOM ---
CM Note CM Note Notes: CM was asked to see if pt's Medicaid would cover an expensinve chemo drug called Rydapt. Spoke with Lilian at [facility]. Medicaid will cover the drug at 0 cost to pt. Rydapt was ordered. C/M will continue to follow for DC needs. Date Signed: 09/02/2017 03:21 PM Electronically Signed By:Jazmine Alanis LCSW
[2017-09-03] MEDS: PIPERACILLIN/TAZO 4.5 GM/DEX 100 ML IV SCH ×5 (00:13→23:38)
[2017-09-03] MEDS: oxyCODONE IR 5 MG TAB PO PRN ×5 (05:35→22:06)
[2017-09-03] MEDS: MEPERIDINE 25 MG/ML SYR IVP PRN (05:35)
[2017-09-03] MEDS: ACETAMINOPHEN 325 MG TAB PO PRN ×3 (05:35→20:55)
[2017-09-03 06:10] LABS: ADD MORPH? NO; ANION GAP 11 mEq/L (8-16); ATYPICAL LYMPHOCYTE FLAG 0 (0-99); CALCIUM 8.1 mg/dL (8.5-10.4); CARBON DIOXIDE 24 mEq/l (22-31); CHLORIDE 103 mEq/L (97-110); CREATININE 0.8 mg/dL (0.7-1.3); FRAGMENT RBC FLAG 0 (0-99); GLOMERULAR FILTRATION RATE > 60; GLUCOSE 103 mg/dL (70-100); HEMATOCRIT 23.2 % (40.0-51.0); HEMOGLOBIN 8.3 g/dL (13.7-17.5); LEFT SHIFT FLG 0 (0-99); LIPEMIA HEMOLYSIS FLAG 90 (0-99); MEAN CELL HEMOGLOBIN 31.3 pg (27.9-34.1); MEAN CELL HEMOGLOBIN CONCENTR. 35.8 g/dL (32.4-36.7); MEAN CELL VOLUME 87.5 fL (81.5-99.8); MEAN PLATELET VOLUME 9.7 fL (8.7-11.7); PLATELET CLUMPS FLAG 20 (0-99); POTASSIUM 3.9 mEq/L (3.5-5.2); RED BLOOD CELL COUNT 2.65 10^6/uL (4.40-6.38); RED CELL DISTRIBUTION WIDTH 14.6 % (11.5-15.2); SODIUM 138 mEq/L (134-144)
[2017-09-03 06:47] LABS: PLATELET COUNT 7 10^3/uL (150-400)
[2017-09-03 06:48] LABS: ADD SCAN? NO
[2017-09-03 06:50] LABS: ADD DIFF? NO
[2017-09-03 07:35] LABS: PLATELET ESTIMATE DECREASED (ADEQ)
[2017-09-03] MEDS: MICAFUNGIN NA 100 MG in NS 100 ML IV SCH (08:31)
[2017-09-03] MEDS: ALLOPURINOL 300 MG TAB PO SCH (08:33)
[2017-09-03] MEDS: ACYCLOVIR 400 MG TAB PO SCH ×2 (08:33→20:55)
--- NOTE | 2017-09-03 09:37 | SOAPPROG ---
DIMITRY Progress Note Assessment/Plan: Assessment: 1. AML. normal FISH/cyto; FLT3+. day 12 after 7+3 induction 2. Febrile neutropenia, since 08/29 3. Pancytopenia 4. CMV IgM+ -- CMV PCR negative. 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 Plan: - will add midostaurin 50 mg BID x 14 days as part of his induction regimen. This is indicated for FLT3+ AML. - will speak to alloSCT team at [facility] to expedite transplant workup - give Tylenol PRN only; don't want to suppress fever, since this could indicate persistent or occult infection - platelet transfusion today - continue current abx (zosyn, micafungin, acyclovir). no evidence of active CMV infection. - BMBx this Thursday (day 14) 40 min spent w/ pt and in coordination of care. Subjective: feels well. low grade temp last night (100.1). He has been asking for Tylenol RTC to suppress fever. Objective: exam unchanged Vital Signs Temp Pulse Resp BP Pulse Ox 36.7 C 92 16 110/72 93 09/03/17 08:25 09/03/17 08:25 09/03/17 08:25 09/03/17 08:25 09/03/17 08:25 Microbiology 08/27/17 18:55 Blood Culture - Final Blood 08/27/17 19:00 Blood Culture - Final Blood Laboratory Results 09/03/17 05:40 09/03/17 05:40 09/02/17 09/03/17 09/04/17 05:59 05:59 05:59 Intake Total 1350 3150 Output Total 2250 875 Balance -900 2275 PT 14.7 SEC (12.0-15.0) 09/02/17 05:35 INR 1.15 (0.83-1.16) 09/02/17 05:35 ICD10 Worksheet Patient Problems: Problems Problem Status Onset Acute myeloid leukemia Acute Neutropenic fever Acute
--- NOTE | 2017-09-03 10:31 | PCMIDPN ---
Assessment/Plan: # Neutropenic fever in the setting of AML status post induction chemotherapy: Only low grade fever with regular APAP use. Neutropenia persists w ANC = 0. Diarrhea stable. Blood cx 08/30, 08/27 are NGTD --continue Zosyn, micafungin , Cr stable @ 0.8 --no further diagnostic studies at this time # Diarrhea without abdominal pain: CT only showed possible appendicitis but in absence of abdominal pain, monitoring clinically - doubt surgical disease. GI pathogen panel by PCR negative which included cdiff. # Positive CMV IgM: CMV PCR negative; repeat serology when ANC recovers # Rash on trunk, stable: Appears petechial and likely related to thrombocytopenia. # Mild mucositis: No evidence of thrush, minimal pain Antibiotics # 7 zosyn 4.5 gm IV q6h #4 micafungin 100mg IV daily #4 Subjective: patient crying upon entry to room denies any changes in baseline loose stool, rash. No mouth pain Objective: Vital Signs Temp Pulse Resp BP Pulse Ox 36.7 C 92 16 110/72 93 09/03/17 08:25 09/03/17 08:25 09/03/17 08:25 09/03/17 08:25 09/03/17 08:25 Microbiology 08/27/17 18:55 Blood Culture - Final Blood 08/27/17 19:00 Blood Culture - Final Blood Laboratory Results 09/03/17 05:40 09/03/17 05:40 09/02/17 09/03/17 09/04/17 05:59 05:59 05:59 Intake Total 1350 3150 Output Total 2250 875 Balance -900 2275 Tm 37.8 General Appearance: WD/WN, alert, no apparent distress EENT: pale conjunctiva, 2 oral ulcerations in the posterior pharynx - a bit more hemorrhagic today, No scleral icterus, No thrush Respiratory: lungs clear, No accessory muscle use Neck: supple Cardiac/Chest: regular rate, rhythm Extremities: No pedal edema Abdomen: normal bowel sounds, non-tender, soft Skin: pallor, Petechial rash on upper thigh, maculopapular to petechial rash on chest and back - all stable, No diaphoresis, No jaundice, No erythema Neuro/Psych: alert, normal mood/affect, oriented x 3 RUE PICC: No drainage, No erythema ICD10 Worksheet Patient Problems: Problems Problem Status Onset Acute myeloid leukemia Acute Neutropenic fever Acute
[2017-09-03] MEDS ORDERED: RYDAPT 25 MG PO SCH (10:45)
[2017-09-03] MEDS: ONDANSETRON DISINTEGRATING 4 MG TAB PO PRN (10:52)
[2017-09-03] MEDS: RYDAPT 25 MG PO SCH ×2 (11:16→22:59)
--- NOTE | 2017-09-03 13:05 | HOSPPROG ---
Hospitalist Progress Note Assessment/Plan: 42 yo M with AML here for induction chemo complicated by neutropenic fever AML - post induction chemo, onc following, complications as next Neutropenic fever -afebrile now since am of 09/01, feeling a bit better, had 6 days of persistent fever prior to this -continued on micafungin, zosyn and s/p vanc -cultures negative, no localizing sxs 37.8 overnight diarrhea: without abdominal pain and GI pathogen panel negative pancytopenia -continue to transfuse prn hgb < 7, plt < 10, monitoring -ANC remains essentially zero, h/h stable s/p transfusion of 8 units since admit getting platelets today petechial rash: likely due to low platelet count, not improving mucositis: without much pain, continue oral care, will add oral lidocaine if needed,lesions appear stable overnight CMV IgM positive - will need to repeat serologies IP status dispo: IP status, will need improved counts and no further fever prior to dc Subjective: case d/w Dr Winn Objective: Vital Signs Temp Pulse Resp BP Pulse Ox 36.3 C 77 16 108/64 95 09/03/17 12:10 09/03/17 12:10 09/03/17 12:10 09/03/17 12:10 09/03/17 12:10 Microbiology 08/27/17 18:55 Blood Culture - Final Blood 08/27/17 19:00 Blood Culture - Final Blood Laboratory Results 09/03/17 05:40 09/03/17 05:40 09/02/17 09/03/17 09/04/17 05:59 05:59 05:59 Intake Total 1350 3150 Output Total 2250 875 Balance -900 2275 PT 14.7 SEC (12.0-15.0) 09/02/17 05:35 INR 1.15 (0.83-1.16) 09/02/17 05:35 - Physical Exam Constitutional: no apparent distress, appears nourished Eyes: PERRL, anicteric sclera Ears, Nose, Mouth, Throat: moist mucous membranes, hearing normal Cardiovascular: regular rate and rhythym, no murmur, rub, or gallop Respiratory: no respiratory distress, no rales or rhonchi Gastrointestinal: normoactive bowel sounds, soft, non-tender abdomen Genitourinary: no bladder fullness, No perez in urethra Skin: warm, normal color, other (no petechiae) Musculoskeletal: full muscle strength, other (R>L edema; no calf tenderness), No pain with ROM Psychiatric: interacting appropriately, not anxious Lymph, Heme, Immunologic: no cervical LAD ICD10 Worksheet Patient Problems: Problems Problem Status Onset Acute myeloid leukemia Acute Neutropenic fever Acute
[2017-09-03] MEDS: ONDANSETRON DISINTEGRATING 4 MG TAB PO SCH (22:06)
[2017-09-04] MEDS: PIPERACILLIN/TAZO 4.5 GM/DEX 100 ML IV SCH ×3 (05:43→19:24)
[2017-09-04 05:56] LABS: ADD MORPH? NO; ATYPICAL LYMPHOCYTE FLAG 30 (0-99); FRAGMENT RBC FLAG 0 (0-99); HEMATOCRIT 21.1 % (40.0-51.0); HEMOGLOBIN 7.5 g/dL (13.7-17.5); LEFT SHIFT FLG 0 (0-99); LIPEMIA HEMOLYSIS FLAG 90 (0-99); MEAN CELL HEMOGLOBIN 31.9 pg (27.9-34.1); MEAN CELL HEMOGLOBIN CONCENTR. 35.5 g/dL (32.4-36.7); MEAN CELL VOLUME 89.8 fL (81.5-99.8); MEAN PLATELET VOLUME 10.2 fL (8.7-11.7); PLATELET CLUMPS FLAG 20 (0-99); RED BLOOD CELL COUNT 2.35 10^6/uL (4.40-6.38); RED CELL DISTRIBUTION WIDTH 14.2 % (11.5-15.2)
[2017-09-04 05:58] LABS: PLATELET COUNT 22 10^3/uL (150-400)
[2017-09-04 06:03] LABS: ADD DIFF? NO; ADD SCAN? NO
[2017-09-04 06:04] LABS: ANION GAP 8 mEq/L (8-16); CARBON DIOXIDE 27 mEq/l (22-31); CHLORIDE 105 mEq/L (97-110); CREATININE 0.7 mg/dL (0.7-1.3); GLOMERULAR FILTRATION RATE > 60; GLUCOSE 99 mg/dL (70-100); MAGNESIUM 2.3 mg/dL (1.6-2.3); POTASSIUM 4.2 mEq/L (3.5-5.2); SODIUM 140 mEq/L (134-144)
[2017-09-04 06:21] LABS: PLATELET ESTIMATE DECREASED (ADEQ)
[2017-09-04] MEDS: ALLOPURINOL 300 MG TAB PO SCH (09:54)
[2017-09-04] MEDS: MICAFUNGIN NA 100 MG in NS 100 ML IV SCH (09:55)
[2017-09-04] MEDS: ACYCLOVIR 400 MG TAB PO SCH ×2 (09:55→22:22)
--- NOTE | 2017-09-04 09:58 | HOSPPROG ---
Hospitalist Progress Note Assessment/Plan: 42 yo M with AML here for induction chemo complicated by neutropenic fever AML - post induction chemo, onc following, complications as next Neutropenic fever -febrile overnight -continued on micafungin, zosyn and s/p vanc -cultures negative, no localizing sxs diarrhea: without abdominal pain and GI pathogen panel negative pancytopenia -continue to transfuse prn hgb < 7, plt < 10, monitoring -ANC remains essentially zero, h/h stable s/p transfusion of 8 units since admit suspect he may need blood today (09/04) petechial rash: likely due to low platelet count, not improving mucositis: without much pain, continue oral care, will add oral lidocaine if needed,lesions appear stable overnight CMV IgM positive - will need to repeat serologies IP status dispo: IP status, will need improved counts and no further fever prior to dc Subjective: febrile last maia. diarrhea "ok". case d/w dr bourne Objective: Vital Signs Temp Pulse Resp BP Pulse Ox 36.6 C 86 16 108/72 95 09/04/17 07:21 09/04/17 07:21 09/04/17 07:21 09/04/17 07:21 09/04/17 07:21 Microbiology 08/30/17 05:55 Blood Culture - Final Blood 08/30/17 05:45 Blood Culture - Final Blood Laboratory Results 09/04/17 05:45 09/04/17 05:45 09/03/17 09/04/17 09/05/17 05:59 05:59 05:59 Intake Total 3150 1200 Output Total 875 1700 Balance 2275 -500 PT 14.7 SEC (12.0-15.0) 09/02/17 05:35 INR 1.15 (0.83-1.16) 09/02/17 05:35 - Physical Exam Constitutional: no apparent distress, appears nourished Eyes: PERRL, anicteric sclera Ears, Nose, Mouth, Throat: moist mucous membranes, hearing normal Cardiovascular: regular rate and rhythym, no murmur, rub, or gallop Respiratory: no respiratory distress, no rales or rhonchi Gastrointestinal: normoactive bowel sounds, soft, non-tender abdomen, No guarding, No rebound Genitourinary: no bladder fullness, No perez in urethra Skin: warm, normal color Musculoskeletal: full muscle strength Neurologic: AAOx3 Psychiatric: interacting appropriately Lymph, Heme, Immunologic: no cervical LAD ICD10 Worksheet Patient Problems: Problems Problem Status Onset Acute myeloid leukemia Acute Neutropenic fever Acute
[2017-09-04] MEDS: LOPERAMIDE HCL 2 MG CAP PO PRN ×2 (10:17→23:13)
[2017-09-04] MEDS: ONDANSETRON DISINTEGRATING 4 MG TAB PO SCH ×2 (10:17→22:22)
[2017-09-04] MEDS ORDERED: MBX SOLN 30 ML BOTTLE PO PRN (10:46)
--- NOTE | 2017-09-04 11:22 | SOAPPROG ---
SOAP Progress Note Assessment/Plan: Assessment: 1. AML. normal FISH/cyto; FLT3+. day 12 after 7+3 induction 2. Febrile neutropenia, since 08/29 3. Pancytopenia 4. CMV IgM+ -- CMV PCR negative. 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 Plan: - continue midostaurin 50 mg BID x 14 days. today=1st day - will speak to alloSCT team at [facility] to expedite transplant workup - give Tylenol PRN only; don't want to suppress fever, since this could indicate persistent or occult infection - continue current abx (zosyn, micafungin, acyclovir). no evidence of active CMV infection. - BMBx today - situational depression - will continue to provide support. Subjective: feeling depressed today. physically no new symptoms. Objective: exam unchanged Vital Signs Temp Pulse Resp BP Pulse Ox 36.6 C 86 16 108/72 95 09/04/17 07:21 09/04/17 07:21 09/04/17 07:21 09/04/17 07:21 09/04/17 07:21 Microbiology 08/30/17 05:55 Blood Culture - Final Blood 08/30/17 05:45 Blood Culture - Final Blood Laboratory Results 09/04/17 05:45 09/04/17 05:45 09/03/17 09/04/17 09/05/17 05:59 05:59 05:59 Intake Total 3150 1200 Output Total 875 1700 Balance 2275 -500 PT 14.7 SEC (12.0-15.0) 09/02/17 05:35 INR 1.15 (0.83-1.16) 09/02/17 05:35 ICD10 Worksheet Patient Problems: Problems Problem Status Onset Acute myeloid leukemia Acute Neutropenic fever Acute
[2017-09-04] MEDS: RYDAPT 25 MG PO SCH ×2 (11:23→23:06)
--- NOTE | 2017-09-04 12:44 | PCMIDPN ---
Assessment/Plan: # Neutropenic fever in the setting of AML status post induction chemotherapy: Neutropenia persists w ANC = 0, bone marrow today. Diarrhea stable. Blood cx 08/30, 08/27 are Neg. Generally stable today with continued low grade fever --continue Zosyn, micafungin , Cr stable @ 0.7 --no further diagnostic studies at this time --blood cx 09/03 pending # Positive CMV IgM: CMV PCR negative; repeat serology when ANC recovers # Rash on trunk, stable: Appears petechial and likely related to thrombocytopenia. # Mild mucositis: No evidence of thrush, minimal pain Antibiotics # 8 zosyn 4.5 gm IV q6h #5 micafungin 100mg IV daily #5 09/04/17 12:45 Subjective: feeling the same today no new symptoms Objective: Vital Signs Temp Pulse Resp BP Pulse Ox 36.6 C 86 16 108/72 95 09/04/17 07:21 09/04/17 07:21 09/04/17 07:21 09/04/17 07:21 09/04/17 07:21 Microbiology 08/30/17 05:55 Blood Culture - Final Blood 08/30/17 05:45 Blood Culture - Final Blood Laboratory Results 09/04/17 05:45 09/04/17 05:45 09/03/17 09/04/17 09/05/17 05:59 05:59 05:59 Intake Total 3150 1200 Output Total 875 1700 Balance 2275 -500 Tm 38.3 General Appearance: WD/WN, alert, no apparent distress EENT: pale conjunctiva, 2 oral ulcerations in the posterior pharynx - appear to be healing, No scleral icterus, No thrush Respiratory: lungs clear, No accessory muscle use Neck: supple Cardiac/Chest: regular rate, rhythm Extremities: No pedal edema Abdomen: normal bowel sounds, non-tender, soft Skin: pallor, Petechial rash on upper thigh, maculopapular to petechial rash on chest and back - all stable, No diaphoresis, No jaundice, No erythema Neuro/Psych: alert, normal mood/affect, oriented x 3 RUE PICC: No drainage, No erythema ICD10 Worksheet Patient Problems: Problems Problem Status Onset Acute myeloid leukemia Acute Neutropenic fever Acute
[2017-09-04] MEDS ORDERED: LIDOCAINE 2% 5 ML SDV IF ONE (13:00)
[2017-09-04] MEDS ORDERED: LORazepam 2 MG/ML INJ IVP ONE (13:00)
[2017-09-04] MEDS: oxyCODONE IR 5 MG TAB PO PRN (19:51)
--- NOTE | 2017-09-04 22:19 | GPN ---
[f rep st] PROCEDURE NOTE DATE OF PROCEDURE: 09/04/2017 PROCEDURE: Bone marrow aspirate and biopsy. INDICATION: Acute myeloid leukemia, under treatment DESCRIPTION OF PROCEDURE: The procedure was explained to the patient and he had the opportunity to a sk questions. He signed the consent form which was placed in the chart. He was placed in the prone position and the left posterior iliac crest was prepped and draped in usual sterile fashion. 2% lido david was used liberally to infiltrate the skin and underlying periosteum. A Jamshidi needle was use d to enter the bone marrow, and a 1.5 cm core was obtained. Next, the same needle was repositioned a nd used to obtain approximately 10 mL of aspirate material, which was sent for morphology, flow cytom etry, and cytogenetics. The patient tolerated the procedure well. He had no significant bleeding. He received 2 mg of IV morphine and 1 mg of IV Ativan as premedications. /[id number]/MODL
[2017-09-05] MEDS: PIPERACILLIN/TAZO 4.5 GM/DEX 100 ML IV SCH ×5 (00:43→23:28)
[2017-09-05] MEDS: oxyCODONE IR 5 MG TAB PO PRN ×3 (05:55→21:38)
[2017-09-05 06:00] LABS: ADD MORPH? NO; ATYPICAL LYMPHOCYTE FLAG 10 (0-99); FRAGMENT RBC FLAG 0 (0-99); HEMATOCRIT 20.8 % (40.0-51.0); HEMOGLOBIN 7.5 g/dL (13.7-17.5); LEFT SHIFT FLG 0 (0-99); LIPEMIA HEMOLYSIS FLAG 90 (0-99); MEAN CELL HEMOGLOBIN 32.2 pg (27.9-34.1); MEAN CELL HEMOGLOBIN CONCENTR. 36.1 g/dL (32.4-36.7); MEAN CELL VOLUME 89.3 fL (81.5-99.8); MEAN PLATELET VOLUME 10.7 fL (8.7-11.7); PLATELET CLUMPS FLAG 0 (0-99); RED BLOOD CELL COUNT 2.33 10^6/uL (4.40-6.38); RED CELL DISTRIBUTION WIDTH 13.9 % (11.5-15.2)
[2017-09-05 06:04] LABS: ADD SCAN? NO; PLATELET COUNT 16 10^3/uL (150-400)
[2017-09-05 06:25] LABS: ADD DIFF? NO
[2017-09-05 06:44] LABS: PLATELET ESTIMATE DECREASED (ADEQ)
[2017-09-05] MEDS: ACYCLOVIR 400 MG TAB PO SCH ×2 (09:31→21:33)
[2017-09-05] MEDS: ALLOPURINOL 300 MG TAB PO SCH (09:31)
[2017-09-05] MEDS: MICAFUNGIN NA 100 MG in NS 100 ML IV SCH (09:36)
--- NOTE | 2017-09-05 09:51 | SOAPPROG ---
SOAP Progress Note Assessment/Plan: Assessment: 1. AML flt 3 C1D14 7&3 and midostaurin: he is having 1-2 BM. the day 14 marrow whould be out next week. Its just a matter of waiting for recovery if he is aplastic on day 14. 2. Pancytopenia: no TxN needed now 3. 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 He just had a day 14 BM. He is irritable and withdrawn today. Objective: Vital Signs Temp Pulse Resp BP Pulse Ox 36.6 C 80 16 115/70 92 09/05/17 04:00 09/05/17 04:00 09/05/17 04:00 09/05/17 04:00 09/05/17 04:00 Microbiology 08/30/17 05:55 Blood Culture - Final Blood 08/30/17 05:45 Blood Culture - Final Blood Laboratory Results 09/05/17 05:40 09/04/17 05:45 09/04/17 09/05/17 09/06/17 05:59 05:59 05:59 Intake Total 1200 1700 Output Total 1700 Balance -500 1700 PT 14.7 SEC (12.0-15.0) 09/02/17 05:35 INR 1.15 (0.83-1.16) 09/02/17 05:35 ICD10 Worksheet Patient Problems: Problems Problem Status Onset Neutropenic fever Acute Acute myeloid leukemia Acute
--- NOTE | 2017-09-05 10:33 | HOSPPROG ---
Hospitalist Progress Note Assessment/Plan: 42 yo M with AML here for induction chemo complicated by neutropenic fever AML - post induction chemo, onc following, complications as next Neutropenic fever -febrile overnight -continued on micafungin, zosyn (day 7) and s/p vanc -cultures negative, no localizing sxs diarrhea: without abdominal pain and GI pathogen panel negative pancytopenia -continue to transfuse prn hgb < 7, plt < 10, monitoring -ANC remains essentially zero, h/h stable s/p transfusion of 8 units since admit petechial rash: likely due to low platelet count, not improving mucositis: without much pain, continue oral care, will add oral lidocaine if needed,lesions appear stable overnight CMV IgM positive - will need to repeat serologies IP status dispo: IP status, will need improved counts and no further fever prior to dc Subjective: afebrile. case d/w dr brunson Objective: Vital Signs Temp Pulse Resp BP Pulse Ox 36.9 C 93 18 108/72 95 09/05/17 08:00 09/05/17 08:00 09/05/17 08:00 09/05/17 08:00 09/05/17 08:00 Microbiology 08/30/17 05:55 Blood Culture - Final Blood 08/30/17 05:45 Blood Culture - Final Blood Laboratory Results 09/05/17 05:40 09/04/17 05:45 09/04/17 09/05/17 09/06/17 05:59 05:59 05:59 Intake Total 1200 1700 Output Total 1700 Balance -500 1700 PT 14.7 SEC (12.0-15.0) 09/02/17 05:35 INR 1.15 (0.83-1.16) 09/02/17 05:35 - Physical Exam Constitutional: no apparent distress, appears nourished Eyes: PERRL, anicteric sclera Ears, Nose, Mouth, Throat: moist mucous membranes, hearing normal Cardiovascular: regular rate and rhythym, no murmur, rub, or gallop Respiratory: no respiratory distress, no rales or rhonchi Gastrointestinal: normoactive bowel sounds, soft, non-tender abdomen Genitourinary: no bladder fullness, No perez in urethra Skin: warm, normal color Musculoskeletal: full muscle strength, no muscle tenderness Neurologic: AAOx3 Psychiatric: interacting appropriately ICD10 Worksheet Patient Problems: Problems Problem Status Onset Acute myeloid leukemia Acute Neutropenic fever Acute
[2017-09-05] MEDS: ONDANSETRON DISINTEGRATING 4 MG TAB PO SCH ×2 (10:46→22:38)
[2017-09-05] MEDS: RYDAPT 25 MG PO SCH ×2 (11:38→23:23)
--- NOTE | 2017-09-05 14:07 | PCMIDPN ---
Assessment/Plan: # Neutropenic fever in the setting of AML status post induction chemotherapy: Neutropenia persists w ANC = 0, bone marrow today. Diarrhea stable. No fever since 09/03. --continue Zosyn, micafungin --no further diagnostic studies at this time # Positive CMV IgM: CMV PCR negative; repeat serology when ANC recovers # Rash on trunk, stable: Appears petechial and likely related to thrombocytopenia. # Mild mucositis: almost resolved Antibiotics # 9 zosyn 4.5 gm IV q6h #6 micafungin 100mg IV daily #6 microbiology Blood cx 08/30, 08/27 are Neg. blood cx 09/03 NGTD Subjective: feeling okay today other than "grumpy" Objective: Vital Signs Temp Pulse Resp BP Pulse Ox 36.4 C 94 16 106/78 94 09/05/17 12:00 09/05/17 12:00 09/05/17 12:00 09/05/17 12:00 09/05/17 12:00 Microbiology 08/30/17 05:55 Blood Culture - Final Blood 08/30/17 05:45 Blood Culture - Final Blood Laboratory Results 09/05/17 05:40 09/04/17 05:45 09/04/17 09/05/17 09/06/17 05:59 05:59 05:59 Intake Total 1200 1700 800 Output Total 1700 400 Balance -500 1700 400 Tm 36.9 General Appearance: WD/WN, alert, no apparent distress EENT: pale conjunctiva, 2 oral ulcerations in the posterior pharynx much smaller , no thrush Respiratory: lungs clear, No accessory muscle use Neck: supple Cardiac/Chest: regular rate, rhythm Extremities: No pedal edema Abdomen: normal bowel sounds, non-tender, soft Skin: pallor, Petechial rash on upper thigh, maculopapular to petechial rash on chest and back - all stable, No diaphoresis, No jaundice, No erythema Neuro/Psych: alert, normal mood/affect, oriented x 3 RUE PICC: No drainage, No erythema ICD10 Worksheet Patient Problems: Problems Problem Status Onset Acute myeloid leukemia Acute Neutropenic fever Acute
--- NOTE | 2017-09-05 16:32 | ASMTCMCOM ---
CM Note CM Note Notes: 09/05/2017 Case Management Note Spoke w/RN. No new case management d/c needs identified. Case Management d/c poc remains home independent when medically stable with follow up as directed. Date Signed: 09/05/2017 04:31 PM Electronically Signed By:Cynthia Davey RN
[2017-09-06] MEDS: PIPERACILLIN/TAZO 4.5 GM/DEX 100 ML IV SCH ×3 (05:19→18:10)
[2017-09-06 05:42] LABS: ADD MORPH? NO; ATYPICAL LYMPHOCYTE FLAG 30 (0-99); FRAGMENT RBC FLAG 0 (0-99); HEMATOCRIT 21.4 % (40.0-51.0); HEMOGLOBIN 7.6 g/dL (13.7-17.5); LEFT SHIFT FLG 0 (0-99); LIPEMIA HEMOLYSIS FLAG 90 (0-99); MEAN CELL HEMOGLOBIN 31.5 pg (27.9-34.1); MEAN CELL HEMOGLOBIN CONCENTR. 35.5 g/dL (32.4-36.7); MEAN CELL VOLUME 88.8 fL (81.5-99.8); MEAN PLATELET VOLUME 11.3 fL (8.7-11.7); PLATELET CLUMPS FLAG 0 (0-99); RED BLOOD CELL COUNT 2.41 10^6/uL (4.40-6.38); RED CELL DISTRIBUTION WIDTH 13.4 % (11.5-15.2)
[2017-09-06 05:48] LABS: ADD SCAN? NO; PLATELET COUNT 12 10^3/uL (150-400)
[2017-09-06 05:49] LABS: ADD DIFF? NO
[2017-09-06 06:15] LABS: PLATELET ESTIMATE DECREASED (ADEQ)
--- NOTE | 2017-09-06 07:00 | SOAPPROG ---
SOAP Progress Note Assessment/Plan: Assessment: 1. AML flt 3 C1D15 7&3 and midostaurin: He is having 1-2 BM per day. The day 14 marrow should be out next week. Its just a matter of waiting for recovery if he is aplastic on day 14. 2. Pancytopenia: no TxN needed today. 3. 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 He is currently on Day 15. His counts reflect that he is at the [facility]. His BM should be out tomorrow or Thursday. Objective: Vital Signs Temp Pulse Resp BP Pulse Ox 36.8 C 76 16 105/60 93 09/06/17 04:00 09/06/17 04:00 09/06/17 04:00 09/06/17 04:00 09/06/17 04:00 Laboratory Results 09/06/17 05:30 09/04/17 05:45 09/05/17 09/06/17 09/07/17 05:59 05:59 05:59 Intake Total 1700 2000 Output Total 400 Balance 1700 1600 PT 14.7 SEC (12.0-15.0) 09/02/17 05:35 INR 1.15 (0.83-1.16) 09/02/17 05:35 ICD10 Worksheet Patient Problems: Problems Problem Status Onset Neutropenic fever Acute Acute myeloid leukemia Acute
--- NOTE | 2017-09-06 09:52 | PCMIDPN ---
Assessment/Plan: # Neutropenic fever in the setting of AML status post induction chemotherapy: Neutropenia persists w ANC = 0, bone marrow today. Diarrhea stable. No fever since 09/03. Generally stable. ANC = 0 --continue Zosyn --no further diagnostic studies at this time --discontinue micafungin as no evidence of aspergillus, will resume fluconazole prophylaxis. --continue acyclovir prophylaxis # Positive CMV IgM: CMV PCR negative; repeat serology when ANC recovers # Rash on trunk, stable: Appears petechial and likely related to thrombocytopenia. # Mild mucositis: almost resolved Antibiotics # 10 zosyn 4.5 gm IV q6h #7 micafungin 100mg IV daily #7 Acyclovir 400 mg p.o. twice daily microbiology Blood cx 08/30, 08/27 are Neg. blood cx 09/03 NGTD Subjective: Just waking up at the time of my exam. No specific complaints. No oral pain, diarrhea at baseline, no rectal pain Objective: Vital Signs Temp Pulse Resp BP Pulse Ox 36.6 C 76 16 94/59 L 95 09/06/17 08:00 09/06/17 08:00 09/06/17 08:00 09/06/17 08:00 09/06/17 08:00 Laboratory Results 09/06/17 05:30 09/04/17 05:45 09/05/17 09/06/17 09/07/17 05:59 05:59 05:59 Intake Total 1700 2000 Output Total 400 Balance 1700 1600 - Physical Exam General Appearance: alert, no apparent distress EENT: pale conjunctiva, No scleral icterus Respiratory: lungs clear, No accessory muscle use Cardiac/Chest: regular rate, rhythm Extremities: No pedal edema Skin: other (Scattered petechial rash on trunk, upper thighs) Neuro/Psych: alert, normal mood/affect, oriented x 3 - Line/s RUE PICC Lines: No drainage, No erythema ICD10 Worksheet Patient Problems: Problems Problem Status Onset Acute myeloid leukemia Acute Neutropenic fever Acute
[2017-09-06] MEDS: ACYCLOVIR 400 MG TAB PO SCH ×2 (10:42→20:22)
[2017-09-06] MEDS: MICAFUNGIN NA 100 MG in NS 100 ML IV SCH (10:42)
[2017-09-06] MEDS: ALLOPURINOL 300 MG TAB PO SCH (10:42)
[2017-09-06] MEDS: RYDAPT 25 MG PO SCH ×2 (11:01→22:38)
[2017-09-06] MEDS: ONDANSETRON DISINTEGRATING 4 MG TAB PO SCH ×2 (11:01→22:35)
[2017-09-06] MEDS: oxyCODONE IR 5 MG TAB PO PRN ×2 (11:01→20:22)
--- NOTE | 2017-09-06 13:57 | HOSPPROG ---
Hospitalist Progress Note Assessment/Plan: 42 yo M with AML here for induction chemo complicated by neutropenic fever AML - post induction chemo, onc following, complications as next Neutropenic fever -afebrile overnight -continued on zosyn (day 8) and s/p vanc and micafungin -cultures negative, no localizing sxs diarrhea: without abdominal pain and GI pathogen panel negative pancytopenia -continue to transfuse prn hgb < 7, plt < 10, monitoring -ANC remains essentially zero, h/h stable s/p transfusion of 8 units since admit suspect will need platelets 09/07 petechial rash: likely due to low platelet count, not improving mucositis: without much pain, continue oral care, will add oral lidocaine if needed,lesions appear stable overnight CMV IgM positive - will need to repeat serologies IP status dispo: IP status, will need improved counts and no further fever prior to dc Subjective: case d/w dr pleitez. afebrile Objective: Vital Signs Temp Pulse Resp BP Pulse Ox 37.1 C 86 16 98/80 L 95 09/06/17 12:00 09/06/17 12:00 09/06/17 12:00 09/06/17 12:00 09/06/17 12:00 Laboratory Results 09/06/17 05:30 09/04/17 05:45 09/05/17 09/06/17 09/07/17 05:59 05:59 05:59 Intake Total 1700 2000 Output Total 400 Balance 1700 1600 PT 14.7 SEC (12.0-15.0) 09/02/17 05:35 INR 1.15 (0.83-1.16) 09/02/17 05:35 - Physical Exam Constitutional: no apparent distress, appears nourished Eyes: PERRL, anicteric sclera Ears, Nose, Mouth, Throat: moist mucous membranes, hearing normal Cardiovascular: regular rate and rhythym, no murmur, rub, or gallop Respiratory: no respiratory distress, no rales or rhonchi Gastrointestinal: normoactive bowel sounds, soft, non-tender abdomen Genitourinary: no bladder fullness, No perez in urethra Skin: warm, normal color Musculoskeletal: full muscle strength Neurologic: AAOx3 ICD10 Worksheet Patient Problems: Problems Problem Status Onset Acute myeloid leukemia Acute Neutropenic fever Acute
[2017-09-07] MEDS: PIPERACILLIN/TAZO 4.5 GM/DEX 100 ML IV SCH ×5 (00:08→23:53)
[2017-09-07] MEDS: oxyCODONE IR 5 MG TAB PO PRN ×4 (00:22→20:49)
[2017-09-07 06:15] LABS: ADD MORPH? NO; ATYPICAL LYMPHOCYTE FLAG 50 (0-99); FRAGMENT RBC FLAG 0 (0-99); HEMATOCRIT 22.9 % (40.0-51.0); HEMOGLOBIN 8.2 g/dL (13.7-17.5); LEFT SHIFT FLG 0 (0-99); LIPEMIA HEMOLYSIS FLAG 90 (0-99); MEAN CELL HEMOGLOBIN 31.7 pg (27.9-34.1); MEAN CELL HEMOGLOBIN CONCENTR. 35.8 g/dL (32.4-36.7); MEAN CELL VOLUME 88.4 fL (81.5-99.8); MEAN PLATELET VOLUME 11.5 fL (8.7-11.7); PLATELET CLUMPS FLAG 10 (0-99); RED BLOOD CELL COUNT 2.59 10^6/uL (4.40-6.38); RED CELL DISTRIBUTION WIDTH 13.2 % (11.5-15.2)
[2017-09-07 06:20] LABS: ADD SCAN? NO; PLATELET COUNT 9 10^3/uL (150-400)
[2017-09-07 06:22] LABS: ADD DIFF? NO
[2017-09-07 06:23] LABS: APTT 33.7 SEC (23.0-38.0); INR 1.1 (0.83-1.16); PROTIME(PATIENT) 14.1 SEC (12.0-15.0)
[2017-09-07 06:31] LABS: ALANINE AMINOTRANSFERASE 103 IU/L (21-72); ALBUMIN 3.3 g/dL (3.5-5.0); ALKALINE PHOSPHATASE 95 IU/L (38-126); ANION GAP 13 mEq/L (8-16); ASPARTATE AMINOTRANSFERASE 46 IU/L (17-59); BILIRUBIN,TOTAL 0.6 mg/dL (0.1-1.4); CALCIUM 9.2 mg/dL (8.5-10.4); CARBON DIOXIDE 24 mEq/l (22-31); CHLORIDE 104 mEq/L (97-110); CREATININE 0.8 mg/dL (0.7-1.3); GLOMERULAR FILTRATION RATE > 60; GLUCOSE 101 mg/dL (70-100); MAGNESIUM 2.1 mg/dL (1.6-2.3); POTASSIUM 4.6 mEq/L (3.5-5.2); SODIUM 141 mEq/L (134-144); TOTAL PROTEIN 6.5 g/dL (6.3-8.2); TRIGLYCERIDE 132 mg/dL (40-150)
[2017-09-07 06:42] LABS: PLATELET ESTIMATE DECREASED (ADEQ)
--- NOTE | 2017-09-07 09:17 | PCMIDPN ---
Assessment/Plan: # Neutropenic fever in the setting of AML status post induction chemotherapy: Neutropenia persists w ANC = 0 but general trend up in total WBC. No fever since 09/03. General impression is slow improvement --continue Zosyn until ANC recovers since patient is high risk with underlying AML with induction chemotherapy --continue acyclovir, fluconazole prophylaxis # Positive CMV IgM: CMV PCR negative; repeat serology when ANC recovers # Rash on trunk, stable: Appears petechial and likely related to thrombocytopenia. # Mild mucositis: Continued healing Antibiotics # 11 zosyn 4.5 gm IV q6h #8 fluconazole 200mg PO daily Acyclovir 400 mg p.o. twice daily microbiology Blood cx 08/30, 08/27 are Neg. blood cx 09/03 NGTD Subjective: No specific complaints, slept well overnight. No oral pain, no rash Objective: Vital Signs Temp Pulse Resp BP Pulse Ox 36.6 C 86 18 102/66 95 09/07/17 04:00 09/07/17 04:00 09/07/17 04:00 09/07/17 04:00 09/07/17 04:00 Laboratory Results 09/07/17 06:00 09/07/17 06:00 09/06/17 09/07/17 09/08/17 05:59 05:59 05:59 Intake Total 2000 1540 Output Total 400 550 Balance 1600 990 - Physical Exam General Appearance: alert, no apparent distress EENT: other (Almost complete healing of oral ulcerations in posterior pharynx) Respiratory: lungs clear, No accessory muscle use Neck: supple Cardiac/Chest: regular rate, rhythm Extremities: No pedal edema Abdomen: non-tender, soft, other (Mild discomfort to deep palpation right mid quadrant, stable) Skin: rash (Petechial rash trunk and upper thighs) Neuro/Psych: alert, normal mood/affect, oriented x 3 - Line/s RUE PICC Lines: No drainage, No erythema ICD10 Worksheet Patient Problems: Problems Problem Status Onset Acute myeloid leukemia Acute Neutropenic fever Acute
[2017-09-07] MEDS: FLUCONAZOLE 100 MG TAB PO SCH (09:25)
[2017-09-07] MEDS: ALLOPURINOL 300 MG TAB PO SCH (09:25)
[2017-09-07] MEDS: ACYCLOVIR 400 MG TAB PO SCH ×2 (09:25→23:06)
--- NOTE | 2017-09-07 10:24 | HOSPPROG ---
Hospitalist Progress Note Assessment/Plan: 42 yo M with AML here for induction chemo complicated by neutropenic fever. Today is my first encounter with the patient, chart reviewed. Reviewed his care with Dr Maurice. *AML - post induction chemo, onc following, complications as next day #16 post induction *Neutropenic fever in the setting of AML -afebrile overnight -continued on zosyn #11 -cultures negative, no localizing sxs -cont fluconazole and acyclovir prophylaxis -blood cx show no growth *diarrhea:no complaints *pancytopenia -continue to transfuse prn hgb < 7, plt < 10, monitoring -ANC remains essentially zero, h/h stable s/p transfusion of 8 units since admit -to be transfused today w platelets, h/h stable *petechial rash: likely due to low platelet count -better today *Mild mucositis: without much pain, continue oral care *CMV IgM positive - will need to repeat serologies *Plan: will order platelets, recheck labs in a.m. Subjective: Manjit is feeling weak today. Able to get coffee from [employer] in the hospital. Objective: Vital Signs Temp Pulse Resp BP Pulse Ox 36.6 C 83 16 96/68 L 95 09/07/17 09:20 09/07/17 09:20 09/07/17 09:20 09/07/17 09:20 09/07/17 09:20 Laboratory Results 09/07/17 06:00 09/07/17 06:00 09/06/17 09/07/17 09/08/17 05:59 05:59 05:59 Intake Total 1999 1540 Output Total 400 550 Balance 1600 990 PT 14.1 SEC (12.0-15.0) 09/07/17 06:00 INR 1.10 (0.83-1.16) 09/07/17 06:00 - Physical Exam Constitutional: no apparent distress, chronically ill appearing Eyes: PERRL Ears, Nose, Mouth, Throat: hearing normal Cardiovascular: regular rate and rhythym Respiratory: no respiratory distress Skin: warm, rash (petechial rash scattered upper torso, legs, hands/per patient is much better) Musculoskeletal: generalized weakness Neurologic: AAOx3 Psychiatric: interacting appropriately, not anxious ICD10 Worksheet Patient Problems: Problems Problem Status Onset Acute myeloid leukemia Acute Neutropenic fever Acute
[2017-09-07] MEDS: ONDANSETRON DISINTEGRATING 4 MG TAB PO SCH ×2 (10:38→23:05)
--- NOTE | 2017-09-07 10:49 | SOAPPROG ---
SOERMELINDA Progress Note Assessment/Plan: Assessment: 1. AML flt 3 C1D15 7&3 and midostaurin: Today is day 16 of induction and day 4 of midostaurin. WBC 0.9, hgb 8.2. Plts 9k. Emir Bmbx still pending. 2. Pancytopenia: Needs plts today. 3. Febrile neutropenia: afebrile 4. Rash - petechial. Resolving Plan: 1. Continue Rx with transfusion/abx support 2. Check BMBX when available 3. Manual diff on WBC 4. Plt txn today - irradiated 5. Continue midostaurin 09/07/17 10:41 Subjective: [place] well enough to go get coffee at the kios[employer] today. Petechial rash is fading. Objective: Vital Signs Temp Pulse Resp BP Pulse Ox 36.6 C 83 16 96/68 L 95 09/07/17 09:20 09/07/17 09:20 09/07/17 09:20 09/07/17 09:20 09/07/17 09:20 Laboratory Results 09/07/17 06:00 09/07/17 06:00 09/05/17 09/06/17 09/07/17 23:59 23:59 23:59 Intake Total 2000 1500 740 Output Total 400 300 250 Balance 1600 1200 490 PT 14.1 SEC (12.0-15.0) 09/07/17 06:00 INR 1.10 (0.83-1.16) 09/07/17 06:00 Physical Exam - Physical Exam General Appearance: alert, anxiety (mild) Respiratory: lungs clear Cardiac/Chest: regular rate, rhythm Abdomen: normal bowel sounds Skin: pallor, other (scattered petechia) Neuro/Psych: alert, normal mood/affect, No aphasia, No motor weakness, No cognition abnormalities ICD10 Worksheet Patient Problems: Problems Problem Status Onset Acute myeloid leukemia Acute Neutropenic fever Acute
[2017-09-07] MEDS: RYDAPT 25 MG PO SCH ×2 (11:02→23:06)
[2017-09-07 12:16] LABS: FINAL DIAGNOSIS See Comments; MICROSCOPIC DESCRIPTION See Comments; SPECIAL STUDIES See Comments
[2017-09-07] MEDS: ACETAMINOPHEN 325 MG TAB PO PRN (13:38)
[2017-09-08] MEDS: PIPERACILLIN/TAZO 4.5 GM/DEX 100 ML IV SCH ×4 (05:53→23:02)
[2017-09-08 06:12] LABS: ADD DIFF? YES; ADD MORPH? NO; ADD SCAN? YES; ATYPICAL LYMPHOCYTE FLAG 60 (0-99); FRAGMENT RBC FLAG 0 (0-99); HEMATOCRIT 20.7 % (40.0-51.0); HEMOGLOBIN 7.4 g/dL (13.7-17.5); LEFT SHIFT FLG 0 (0-99); LIPEMIA HEMOLYSIS FLAG 90 (0-99); MEAN CELL HEMOGLOBIN 31.8 pg (27.9-34.1); MEAN CELL HEMOGLOBIN CONCENTR. 35.7 g/dL (32.4-36.7); MEAN CELL VOLUME 88.8 fL (81.5-99.8); PLATELET CLUMPS FLAG 10 (0-99); RED BLOOD CELL COUNT 2.33 10^6/uL (4.40-6.38); RED CELL DISTRIBUTION WIDTH 13.2 % (11.5-15.2)
[2017-09-08 06:14] LABS: PLATELET COUNT 27 10^3/uL (150-400)
[2017-09-08 07:16] LABS: PLATELET ESTIMATE DECREASED (ADEQ)
[2017-09-08 07:19] LABS: HYPOCHROMIA 1+
[2017-09-08] MEDS: ALLOPURINOL 300 MG TAB PO SCH (09:23)
[2017-09-08] MEDS: ACYCLOVIR 400 MG TAB PO SCH ×2 (09:23→19:57)
[2017-09-08] MEDS: oxyCODONE IR 5 MG TAB PO PRN ×3 (09:23→21:08)
[2017-09-08] MEDS: FLUCONAZOLE 100 MG TAB PO SCH (09:24)
[2017-09-08] MEDS: ONDANSETRON DISINTEGRATING 4 MG TAB PO SCH ×2 (10:34→22:18)
[2017-09-08] MEDS: RYDAPT 25 MG PO SCH ×2 (11:12→23:00)
--- NOTE | 2017-09-08 11:16 | HOSPPROG ---
Hospitalist Progress Note Assessment/Plan: 42 yo M with AML here for induction chemo complicated by neutropenic fever. Met w the patient w Dr Maurice *AML - post induction chemo, onc following, complications as next day #17 post induction *Neutropenic fever in the setting of AML -afebrile overnight -continued on zosyn 08/30 -cultures negative, no localizing sxs -cont fluconazole and acyclovir prophylaxis -blood cx show no growth *diarrhea:no complaints *pancytopenia -improved with transfusion yesterda -continue to transfuse prn hgb < 7, plt < 10, monitoring *petechial rash: likely due to low platelet count -better *Mild mucositis: without much pain, continue oral care *CMV IgM positive - will need to repeat serologies *Plan: cont current treatment, patient had questions about brother being a possible bone marrow donor. Dr Maurice answered his questions, cont monitoring of labs closely, may need prbc tomorrow. Subjective: Manjit has no complaints about pain. Objective: Vital Signs Temp Pulse Resp BP Pulse Ox 36.6 C 73 15 102/50 L 94 09/08/17 10:36 09/08/17 07:32 09/08/17 07:32 09/08/17 07:32 09/08/17 07:32 Laboratory Results 09/08/17 06:00 09/07/17 06:00 09/07/17 09/08/17 09/09/17 05:59 05:59 05:59 Intake Total 1540 2580 Output Total 550 225 Balance 990 2355 PT 14.1 SEC (12.0-15.0) 09/07/17 06:00 INR 1.10 (0.83-1.16) 09/07/17 06:00 - Physical Exam Constitutional: not in pain, chronically ill appearing Eyes: PERRL Ears, Nose, Mouth, Throat: hearing normal Cardiovascular: regular rate and rhythym Respiratory: no respiratory distress Skin: warm, No normal color (pale) Musculoskeletal: full muscle strength Neurologic: AAOx3 Psychiatric: interacting appropriately, not anxious ICD10 Worksheet Patient Problems: Problems Problem Status Onset Acute myeloid leukemia Acute Neutropenic fever Acute
--- NOTE | 2017-09-08 11:17 | SOAPPROG ---
DIMITRY Progress Note Assessment/Plan: Assessment: 1. AML flt 3 C1D15 7&3 and midostaurin: Today is day 17 of induction and day 5 of midostaurin. WBC 0.7, hgb 7.4. Plts 27k. Emir Bmbx still pending. 2. Pancytopenia: No transfusions today. 3. Febrile neutropenia: afebrile 4. Rash - petechial. Resolving Patient has had initial contact with [facility] transplant team. He is concerned about the timing of his visit with them. He tells me he has 1 full brother who has a hx of IVDA. Plan: 1. Continue Rx with transfusion/abx support 2. Check BMBX when available 3. Manual diff on WBC 4. Patient would like to do his cheek swab to start HLA typing process if appropriate. He is going to contact [facility] to see if they want him to start that now or to wait. 5. Continue midostaurin Subjective: Anxious about being seen at [facility] and want's to expedite the process if possible Objective: Vital Signs Temp Pulse Resp BP Pulse Ox 36.6 C 73 15 102/50 L 94 09/08/17 10:36 09/08/17 07:32 09/08/17 07:32 09/08/17 07:32 09/08/17 07:32 Laboratory Results 09/08/17 06:00 09/07/17 06:00 09/06/17 09/07/17 09/08/17 23:59 23:59 23:59 Intake Total 1500 2440 880 Output Total 300 250 225 Balance 1200 2190 655 PT 14.1 SEC (12.0-15.0) 09/07/17 06:00 INR 1.10 (0.83-1.16) 09/07/17 06:00 Physical Exam - Physical Exam General Appearance: alert, anxiety Respiratory: lungs clear Cardiac/Chest: regular rate, rhythm Abdomen: normal bowel sounds Skin: pallor Neuro/Psych: normal mood/affect, oriented x 3 ICD10 Worksheet Patient Problems: Problems Problem Status Onset Acute myeloid leukemia Acute Neutropenic fever Acute
--- NOTE | 2017-09-08 12:43 | PCMIDPN ---
Assessment/Plan: Assessment/Plan: 1. Neutrapenic Fever in patient with AML s/p induction: - multiple cultures ngtd. -Counts still low.ANC 0 Curently on empiric zosyn -Continue as is for now 2. Rash: - petechial in nature, improving, fading per patient -continue to monitor 3. CMV IgM positive with negative PCR Meds zosyn 4.5g q6- 08/30/17 prophylactic acyclovir/fluconazole Subjective: afebrile. feels well. denies sob, abd pain or diarrhea. having intermittent loose mushy stool, 1-2 x day. Objective: Vital Signs Temp Pulse Resp BP Pulse Ox 36.6 C 79 16 100/68 95 09/08/17 11:21 09/08/17 11:21 09/08/17 11:21 09/08/17 11:21 09/08/17 11:21 Laboratory Results 09/08/17 06:00 09/07/17 06:00 09/07/17 09/08/17 09/09/17 05:59 05:59 05:59 Intake Total 1540 2580 Output Total 550 225 Balance 990 2355 - Physical Exam General Appearance: alert, no apparent distress Respiratory: lungs clear Cardiac/Chest: regular rate, rhythm Extremities: No swelling Abdomen: normal bowel sounds, non-tender, soft, No distended Skin: other (faint scattered petechia over legs and arm. no rash on trunk. ) ICD10 Worksheet Patient Problems: Problems Problem Status Onset Acute myeloid leukemia Acute Neutropenic fever Acute
--- NOTE | 2017-09-08 17:24 | ASMTCMCOM ---
CM Note CM Note Notes: Hospitalist said today that this patient is reaching his Emir and will most likely be here for a week to two weeks more. At that time he will most likely discharge home with no needs. Case management will follow. Date Signed: 09/08/2017 05:24 PM Electronically Signed By:JOSÉ Fabian
[2017-09-09] MEDS: oxyCODONE IR 5 MG TAB PO PRN ×3 (05:35→22:36)
[2017-09-09] MEDS: PIPERACILLIN/TAZO 4.5 GM/DEX 100 ML IV SCH ×3 (05:35→18:39)
[2017-09-09 05:53] LABS: ADD MORPH? NO; ATYPICAL LYMPHOCYTE FLAG 50 (0-99); FRAGMENT RBC FLAG 0 (0-99); HEMATOCRIT 20.4 % (40.0-51.0); HEMOGLOBIN 7.3 g/dL (13.7-17.5); LEFT SHIFT FLG 0 (0-99); LIPEMIA HEMOLYSIS FLAG 90 (0-99); MEAN CELL HEMOGLOBIN 31.7 pg (27.9-34.1); MEAN CELL HEMOGLOBIN CONCENTR. 35.8 g/dL (32.4-36.7); MEAN CELL VOLUME 88.7 fL (81.5-99.8); MEAN PLATELET VOLUME 9.4 fL (8.7-11.7); PLATELET CLUMPS FLAG 0 (0-99); RED CELL DISTRIBUTION WIDTH 13.2 % (11.5-15.2)
[2017-09-09 05:57] LABS: PLATELET COUNT 25 10^3/uL (150-400)
[2017-09-09 05:58] LABS: ADD SCAN? NO
[2017-09-09 06:01] LABS: ADD DIFF? NO
[2017-09-09 06:22] LABS: ANION GAP 13 mEq/L (8-16); CARBON DIOXIDE 24 mEq/l (22-31); CHLORIDE 104 mEq/L (97-110); CREATININE 0.9 mg/dL (0.7-1.3); GLOMERULAR FILTRATION RATE > 60; GLUCOSE 113 mg/dL (70-100); POTASSIUM 4.1 mEq/L (3.5-5.2); SODIUM 141 mEq/L (134-144)
--- NOTE | 2017-09-09 10:22 | HOSPPROG ---
Hospitalist Progress Note Assessment/Plan: 42 yo M with AML here for induction chemo complicated by neutropenic fever. >40 minutes talking with the patient with Dr Maurice. *AML - post induction chemo, onc following, day #18 post induction no blasts in pathology *Neutropenic fever in the setting of AML -afebrile -continued on zosyn 08/30 -cultures negative, no localizing sxs -cont fluconazole and acyclovir prophylaxis -blood cx show no growth *diarrhea:no complaints *pancytopenia, non indicated today -improved with transfusions -continue to transfuse prn hgb < 7, plt < 10, monitoring *petechial rash: likely due to low platelet count -better *Mild mucositis: without much pain, continue oral care *CMV IgM positive - will need to repeat serologies *Plan: Emiliana with oncology support to see the patient Subjective: fahad has no complaints/ very anxious about plan of care. Objective: Vital Signs Temp Pulse Resp BP Pulse Ox 36.8 C 74 14 110/62 93 09/09/17 04:00 09/09/17 04:00 09/09/17 04:00 09/09/17 04:00 09/09/17 04:00 Microbiology 09/03/17 20:30 Blood Culture - Final Blood 09/03/17 20:47 Blood Culture - Final Blood Laboratory Results 09/09/17 05:45 09/09/17 05:45 09/08/17 09/09/17 09/10/17 05:59 05:59 05:59 Intake Total 2580 1900 Output Total 225 1150 Balance 2355 750 PT 14.1 SEC (12.0-15.0) 09/07/17 06:00 INR 1.10 (0.83-1.16) 09/07/17 06:00 - Physical Exam Constitutional: chronically ill appearing Eyes: PERRL Ears, Nose, Mouth, Throat: hearing normal Cardiovascular: regular rate and rhythym Respiratory: no respiratory distress Gastrointestinal: normoactive bowel sounds Skin: warm, No normal color (pale) Musculoskeletal: full muscle strength Neurologic: AAOx3 Psychiatric: interacting appropriately, anxious ICD10 Worksheet Patient Problems: Problems Problem Status Onset Acute myeloid leukemia Acute Neutropenic fever Acute
[2017-09-09] MEDS: ACYCLOVIR 400 MG TAB PO SCH ×2 (10:52→21:19)
[2017-09-09] MEDS: FLUCONAZOLE 100 MG TAB PO SCH (10:52)
[2017-09-09] MEDS: ONDANSETRON DISINTEGRATING 4 MG TAB PO SCH ×2 (10:53→22:33)
[2017-09-09] MEDS: RYDAPT 25 MG PO SCH ×2 (10:56→23:04)
--- NOTE | 2017-09-09 11:00 | SOAPPROG ---
DIMITRY Progress Note Assessment/Plan: Assessment: 1. AML flt 3 C1D15 7&3 and midostaurin: Today is day 18 of induction and day 6 of midostaurin. WBC 0.7, hgb 7.3. Plts 25k. Emir Bmbx shows no blasts. This is consistent with a remission bone marrow 2. Pancytopenia: No transfusions today. 3. Febrile neutropenia: afebrile 4. Rash - petechial. Resolving We had a 40 min discussion today. We discussed his marrow results (good news), consolidation which may need to be done prior to allo transplant, timing, etc. The HLA kit was apparently delivered to the office yesterday. I'll ask one of my staff to locate it. Plan: 1. Continue Rx with transfusion/abx support 2. Wait for counts to recover 3. Manual diff on WBC 4. Patient would like to do his cheek swab to start HLA typing process. 5. Continue midostaurin Subjective: Patient is very concerned with the timing of recovery of his counts, consolidation, BMT, etc. He would like to snow board before consolidation/ transplant if possible. Objective: Vital Signs Temp Pulse Resp BP Pulse Ox 36.8 C 74 14 110/62 93 09/09/17 04:00 09/09/17 04:00 09/09/17 04:00 09/09/17 04:00 09/09/17 04:00 Microbiology 09/03/17 20:30 Blood Culture - Final Blood 09/03/17 20:47 Blood Culture - Final Blood Laboratory Results 09/09/17 05:45 09/09/17 05:45 09/07/17 09/08/17 09/09/17 23:59 23:59 23:59 Intake Total 2440 2280 500 Output Total 250 725 650 Balance 2190 1555 -150 PT 14.1 SEC (12.0-15.0) 09/07/17 06:00 INR 1.10 (0.83-1.16) 09/07/17 06:00 Physical Exam - Physical Exam General Appearance: alert, no apparent distress, anxiety Respiratory: lungs clear Cardiac/Chest: regular rate, rhythm Abdomen: normal bowel sounds Skin: pallor, No rash Neuro/Psych: oriented x 3 ICD10 Worksheet Patient Problems: Problems Problem Status Onset Acute myeloid leukemia Acute Neutropenic fever Acute
--- NOTE | 2017-09-09 11:35 | PCMIDPN ---
Assessment/Plan: Assessment: neutropenic fever in patient status post AML induction. No new complaints. Patient remains on empiric antibiotic coverage with Zosyn, fluconazole and acyclovir. His counts are still near the rosendo. No changes at this point. Plan: 1) Continue current antibiotic regimen. 2) Follow temperature curve and white blood cell counts. Subjective: Patient is resting comfortably in his bed this morning. He has no new complaints. Discussion with the patient and other specialist physicians revolved mostly around oncologic concerns. He denies any fevers or chills. Objective: Zosyn # 10 Fluconazole Acyclovir Vital Signs Temp Pulse Resp BP Pulse Ox 36.5 C 93 18 108/64 96 09/09/17 10:56 09/09/17 10:56 09/09/17 10:56 09/09/17 10:56 09/09/17 10:56 Microbiology 09/03/17 20:30 Blood Culture - Final Blood 09/03/17 20:47 Blood Culture - Final Blood Laboratory Results 09/09/17 05:45 09/09/17 05:45 09/08/17 09/09/17 09/10/17 05:59 05:59 05:59 Intake Total 2580 1900 Output Total 225 1150 Balance 2355 750 - Physical Exam General Appearance: WD/WN, alert, no apparent distress, non-toxic Respiratory: lungs clear, normal breath sounds, No respiratory distress Cardiac/Chest: regular rate, rhythm, No tachycardia Skin: normal color, warm/dry, rash (Improving) Neuro/Psych: alert, normal mood/affect, oriented x 3 ICD10 Worksheet Patient Problems: Problems Problem Status Onset Acute myeloid leukemia Acute Neutropenic fever Acute
[2017-09-10] MEDS: PIPERACILLIN/TAZO 4.5 GM/DEX 100 ML IV SCH ×5 (00:30→23:22)
[2017-09-10 06:27] LABS: ATYPICAL LYMPHOCYTE FLAG 20 (0-99); FRAGMENT RBC FLAG 0 (0-99); HEMATOCRIT 19.2 % (40.0-51.0); LEFT SHIFT FLG 0 (0-99); LIPEMIA HEMOLYSIS FLAG 90 (0-99); MEAN CELL HEMOGLOBIN 31.9 pg (27.9-34.1); MEAN CELL HEMOGLOBIN CONCENTR. 35.9 g/dL (32.4-36.7); MEAN CELL VOLUME 88.9 fL (81.5-99.8); MEAN PLATELET VOLUME 9.9 fL (8.7-11.7); PLATELET CLUMPS FLAG 0 (0-99); RED BLOOD CELL COUNT 2.16 10^6/uL (4.40-6.38); RED CELL DISTRIBUTION WIDTH 12.9 % (11.5-15.2)
[2017-09-10 06:29] LABS: HEMOGLOBIN 6.9 g/dL (13.7-17.5)
[2017-09-10 06:30] LABS: ADD MORPH? NO
[2017-09-10 06:31] LABS: ADD DIFF? YES
[2017-09-10 06:33] LABS: ADD SCAN? NO; PLATELET COUNT 28 10^3/uL (150-400)
[2017-09-10 07:29] LABS: PLATELET ESTIMATE DECREASED (ADEQ)
[2017-09-10] MEDS: FLUCONAZOLE 100 MG TAB PO SCH (10:35)
[2017-09-10] MEDS: ACYCLOVIR 400 MG TAB PO SCH ×2 (10:35→20:30)
[2017-09-10] MEDS: oxyCODONE IR 5 MG TAB PO PRN ×2 (10:35→18:11)
[2017-09-10] MEDS: ONDANSETRON DISINTEGRATING 4 MG TAB PO SCH ×2 (10:35→22:39)
[2017-09-10] MEDS: RYDAPT 25 MG PO SCH ×2 (10:35→23:21)
--- NOTE | 2017-09-10 12:22 | SOAPPROG ---
DIMITRY Progress Note Assessment/Plan: Assessment: 1. 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 WBC 0.79, hgb 6.9. Plts 28k. Emir Bmbx shows no blasts. This is consistent with a remission bone marrow 2. Pancytopenia: He needs 1 unit of PRBC today - irradiated. 3. Febrile neutropenia: afebrile 4. Rash - petechial. Resolving We again had a long discussion today. I reviewed the good news on his day 14 bone marrow. He also impressed upon me how central to his definition of quality of life is his ability to go snowboarding. We talked about risks as well as how to mitigate them. He understands that once the transplant is underway, that it will likely be months before he can snow board again. Plan: 1. Transfuse 1 unit of irradiated PRBC today 2. Wait for counts to recover 3. Manual diff on WBC 4. HLA kit sent out yesterday 5. Continue midostaurin Subjective: Feels OK in general. Wants to have a very serious conversation today about what to expect as far as his likely ability to snow board will be this season. This is central to his definition of quality of life. Objective: Vital Signs Temp Pulse Resp BP Pulse Ox 36.9 C 90 16 108/68 93 09/10/17 08:00 09/10/17 08:00 09/10/17 08:00 09/10/17 08:00 09/10/17 08:00 Laboratory Results 09/10/17 05:55 09/09/17 05:45 09/08/17 09/09/17 09/10/17 23:59 23:59 23:59 Intake Total 2280 2200 2220 Output Total 725 650 Balance 1555 1550 2220 PT 14.1 SEC (12.0-15.0) 09/07/17 06:00 INR 1.10 (0.83-1.16) 09/07/17 06:00 Physical Exam - Physical Exam General Appearance: alert Respiratory: lungs clear Cardiac/Chest: regular rate, rhythm Abdomen: normal bowel sounds Skin: pallor ICD10 Worksheet Patient Problems: Problems Problem Status Onset Acute myeloid leukemia Acute Neutropenic fever Acute
--- NOTE | 2017-09-10 14:02 | PCMIDPN ---
Assessment/Plan: Assessment: neutropenic fever in patient status post AML induction. No new complaints. Patient remains on empiric antibiotic coverage with Zosyn, fluconazole and acyclovir. His counts are still near the rosendo. No changes at this point. Plan: 1) Continue current antibiotic regimen. 2) Follow temperature curve and white blood cell counts. Subjective: Patient is having a another good day today. No new complaints. No fevers or chills. Objective: Zosyn # 11 Fluconazole Acyclovir Vital Signs Temp Pulse Resp BP Pulse Ox 36.8 C 89 18 106/62 91 L 09/10/17 13:07 09/10/17 13:07 09/10/17 13:07 09/10/17 13:07 09/10/17 13:07 Laboratory Results 09/10/17 05:55 09/09/17 05:45 09/09/17 09/10/17 09/11/17 05:59 05:59 05:59 Intake Total 1900 3920 Output Total 1150 Balance 750 3920 - Physical Exam General Appearance: WD/WN, alert, no apparent distress, non-toxic Respiratory: lungs clear, normal breath sounds, No respiratory distress Cardiac/Chest: regular rate, rhythm, No tachycardia Neuro/Psych: alert, normal mood/affect, oriented x 3 ICD10 Worksheet Patient Problems: Problems Problem Status Onset Acute myeloid leukemia Acute Neutropenic fever Acute
--- NOTE | 2017-09-10 15:31 | HOSPPROG ---
Hospitalist Progress Note Assessment/Plan: 42 yo M with AML here for induction chemo complicated by neutropenic fever. >40 minutes talking with the patient with Dr Maurice. # AML - post induction chemotherapy day #19 post induction- BMBx no blasts in pathology continue to monitor closely # Neutropenic WBC 0.79 this am - in the setting of AML- remains afebrile since 09/05 CT abdomen (personally reviewed and interpreted) no typhlitis- cultures remain NGTD oxygen saturations 91% on RA -continue on zosyn (started 08/30) -cont fluconazole and acyclovir prophylaxis # pancytopenia- platelets stable in 's no bleeding - hgb 6.9 - transfuse 1 U PRBC today - continue to transfuse prn hgb < 7, plt < 10, monitoring # petechial rash suspect 2/2 low platelet count -improved # diarrhea- non reported this am # Mild mucositis- improved -continue oral care # CMV IgM positive - will need to repeat serologies # Dispo - > 2MN as requiring monitoring and prophylaxis for sever neutropenia I have discussed the case with Dr. Maurice - we will transfuse RBC today - HLA testing pending Subjective: denies SOB Objective: Vital Signs Temp Pulse Resp BP Pulse Ox 36.8 C 89 18 106/62 91 L 09/10/17 13:07 09/10/17 13:07 09/10/17 13:07 09/10/17 13:07 09/10/17 13:07 Laboratory Results 09/10/17 05:55 09/09/17 05:45 09/09/17 09/10/17 09/11/17 05:59 05:59 05:59 Intake Total 1900 3920 500 Output Total 1150 1075 Balance 750 3920 -575 PT 14.1 SEC (12.0-15.0) 09/07/17 06:00 INR 1.10 (0.83-1.16) 09/07/17 06:00 - Physical Exam Constitutional: no apparent distress Eyes: anicteric sclera Ears, Nose, Mouth, Throat: moist mucous membranes Cardiovascular: regular rate and rhythym Respiratory: no respiratory distress, no rales or rhonchi Gastrointestinal: normoactive bowel sounds Genitourinary: no bladder fullness Skin: warm Musculoskeletal: No asymmetric calves Neurologic: AAOx3 Psychiatric: interacting appropriately, not anxious Lymph, Heme, Immunologic: no cervical LAD ICD10 Worksheet Patient Problems: Problems Problem Status Onset Acute myeloid leukemia Acute Neutropenic fever Acute
--- NOTE | 2017-09-10 15:43 | ASMTCMCOM ---
CM Note CM Note Notes: Pt will likely remain inpt for at least one more week. Tentative plan is to get stem cell transplant after DC. It is u nclear if pt will keep PICC line at DC. C/M will follow for DC needs. Date Signed: 09/10/2017 03:43 PM Electronically Signed By:Jazmine Alanis LCSW
[2017-09-11 04:24] LABS: ADD MORPH? NO; ATYPICAL LYMPHOCYTE FLAG 10 (0-99); FRAGMENT RBC FLAG 0 (0-99); HEMATOCRIT 22.1 % (40.0-51.0); HEMOGLOBIN 7.9 g/dL (13.7-17.5); LEFT SHIFT FLG 0 (0-99); LIPEMIA HEMOLYSIS FLAG 90 (0-99); MEAN CELL HEMOGLOBIN 31.5 pg (27.9-34.1); MEAN CELL HEMOGLOBIN CONCENTR. 35.7 g/dL (32.4-36.7); MEAN PLATELET VOLUME 9.9 fL (8.7-11.7); PLATELET CLUMPS FLAG 0 (0-99); RED BLOOD CELL COUNT 2.51 10^6/uL (4.40-6.38); RED CELL DISTRIBUTION WIDTH 12.9 % (11.5-15.2)
[2017-09-11 04:26] LABS: PLATELET COUNT 49 10^3/uL (150-400)
[2017-09-11 04:28] LABS: ADD SCAN? NO
[2017-09-11 04:29] LABS: ADD DIFF? NO
[2017-09-11 05:36] LABS: PLATELET ESTIMATE DECREASED (ADEQ)
[2017-09-11] MEDS: PIPERACILLIN/TAZO 4.5 GM/DEX 100 ML IV SCH ×4 (06:13→23:35)
[2017-09-11] MEDS: oxyCODONE IR 5 MG TAB PO PRN ×4 (06:14→20:04)
--- NOTE | 2017-09-11 09:17 | PCMIDPN ---
Assessment/Plan: # Neutropenic fever in the setting of AML status post induction chemotherapy: Neutropenia persists w ANC = 10 but general trend up in total WBC. No fever since 09/03. No clear source identified but suspect related to typhlitis. General impression is continued improvement, resolution of oral ulcerations. Mild right mid quadrant abdominal pain to palpation has also resolved --continue Zosyn until ANC recovers since patient is high risk with underlying AML with induction chemotherapy --continue acyclovir, fluconazole prophylaxis --check creatinine tomorrow with continued therapy with high-dose Zosyn # Positive CMV IgM: CMV PCR negative; repeat serology when ANC recovers # Rash on trunk: Nearly resolved # 1 larger loose stool this a.m., continue to monitor Antibiotics # 15 zosyn 4.5 gm IV q6h #12 fluconazole 200mg PO daily Acyclovir 400 mg p.o. twice daily microbiology Blood cx 08/30, 08/27 are Neg. blood cx 09/03 neg Subjective: Larger loose stool this a.m. not precipitated by coffee which is unusual for the patient. No abdominal pain Objective: Vital Signs Temp Pulse Resp BP Pulse Ox 36.8 C 89 16 102/54 L 90 L 09/11/17 04:00 09/11/17 04:00 09/11/17 04:00 09/11/17 04:00 09/11/17 04:00 Laboratory Results 09/11/17 04:15 09/09/17 05:45 09/10/17 09/11/17 09/12/17 05:59 05:59 05:59 Intake Total 3920 1050 Output Total 1375 Balance 3920 -325 - Physical Exam General Appearance: alert, no apparent distress EENT: pale conjunctiva, No pharyngeal erythema, No tonsillar exudate, No thrush Respiratory: lungs clear, No accessory muscle use Neck: supple Cardiac/Chest: regular rate, rhythm, other (Faint systolic murmur) Extremities: No pedal edema Abdomen: normal bowel sounds, non-tender, soft Male Genitalia: No perez Skin: other (Faint hint of prior petechial eruption on trunk) Neuro/Psych: alert, normal mood/affect, oriented x 3 - Line/s RUE PICC Lines: No drainage, No erythema ICD10 Worksheet Patient Problems: Problems Problem Status Onset Acute myeloid leukemia Acute Neutropenic fever Acute
--- NOTE | 2017-09-11 09:55 | HOSPPROG ---
Hospitalist Progress Note Assessment/Plan: DIAGNOSES: -AML in for induction, day 20 -neutropenic fever, resolved -pancytopenia -hemoglobin is 7.9 after transfusion yesterday; no indications for any transfusions today -positive IgM for CMV but DNA test negative Overall he is tolerating this treatment so far reasonably well and is very stable at the moment. Will need ongoing monitoring of blood counts and probably further transfusions. At this point his main complaint is back pain which is being aggravated by the hospital bed. Will see what we can do with possible modifications of his bed or physical therapy interventions to help with that. PLANS: -continue current monitoring and transfusion protocols -continue current prophylactic treatments -continue current Zosyn, acyclovir, fluconazole I reviewed case in detail today with Dr. Cherry Peralta and Dr. Rico Maurice SUBJECTIVE: Main complaint is back pain which is a diffuse muscular and spinal pain without any neurologic or radicular symptoms. This is being aggravated by the bed No symptoms of mucositis or GI abnormalities other than a large stool this morning that was loose. No pain or fever with that No respiratory symptoms or nausea OBJECTIVE Vitals reviewed: Stable without fever Exam: alert oriented skin warm dry color ok resps not labored lungs clear BSs heart regular abd soft nondistended nontender, bowel sounds present limbs warm, no edema PICC site ok Objective: Vital Signs Temp Pulse Resp BP Pulse Ox 36.8 C 89 16 102/54 L 90 L 09/11/17 04:00 09/11/17 04:00 09/11/17 04:00 09/11/17 04:00 09/11/17 04:00 Laboratory Results 09/11/17 04:15 09/09/17 05:45 09/10/17 09/11/17 09/12/17 06:59 06:59 06:59 Intake Total 3920 1050 Output Total 1375 Balance 3920 -325 PT 14.1 SEC (12.0-15.0) 09/07/17 06:00 INR 1.10 (0.83-1.16) 09/07/17 06:00 ICD10 Worksheet Patient Problems: Problems Problem Status Onset Acute myeloid leukemia Acute Neutropenic fever Acute
[2017-09-11] MEDS: FLUCONAZOLE 100 MG TAB PO SCH (10:37)
[2017-09-11] MEDS: ONDANSETRON DISINTEGRATING 4 MG TAB PO SCH ×2 (10:38→22:39)
[2017-09-11] MEDS: ACYCLOVIR 400 MG TAB PO SCH ×2 (10:38→20:04)
[2017-09-11] MEDS: RYDAPT 25 MG PO SCH ×2 (11:35→22:51)
--- NOTE | 2017-09-11 14:04 | SOAPPROG ---
SOERMELINDA Progress Note Assessment/Plan: Assessment: 1. 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 WBC 0.6, hgb 7.9. Plts 49k. Emir Bmbx shows no blasts. This is consistent with a remission bone marrow 2. Pancytopenia: No transfusions today 3. Febrile neutropenia: afebrile 4. Rash - petechial. Resolved His hair if falling out and he requests a haircut. I think that is fine in view of his rising plts. Plan: 1. No transfusions today 2. Wait for counts to recover 3. Manual diff on WBC 4. HLA kit sent out 09 SEP 2017 5. Continue midostaurin Subjective: Somewhat upset that hair is coming out, but he knows it is expected. Objective: Vital Signs Temp Pulse Resp BP Pulse Ox 35.8 C L 80 16 118/74 93 09/11/17 10:46 09/11/17 10:46 09/11/17 04:00 09/11/17 10:46 09/11/17 10:46 Laboratory Results 09/11/17 04:15 09/09/17 05:45 09/09/17 09/10/17 09/11/17 23:59 23:59 23:59 Intake Total 2200 3070 200 Output Total 650 1375 Balance 1550 1695 200 PT 14.1 SEC (12.0-15.0) 09/07/17 06:00 INR 1.10 (0.83-1.16) 09/07/17 06:00 Physical Exam - Physical Exam General Appearance: alert, no apparent distress Respiratory: lungs clear Cardiac/Chest: regular rate, rhythm, edema (trace bilateral LE) Abdomen: normal bowel sounds Neuro/Psych: oriented x 3 ICD10 Worksheet Patient Problems: Problems Problem Status Onset Acute myeloid leukemia Acute Neutropenic fever Acute
[2017-09-11] MEDS: ALTEPLASE 2 MG VIAL IVP PRN (22:50)
[2017-09-12] MEDS: oxyCODONE IR 5 MG TAB PO PRN ×5 (00:16→22:12)
[2017-09-12] MEDS: PIPERACILLIN/TAZO 4.5 GM/DEX 100 ML IV SCH ×4 (06:10→23:31)
[2017-09-12 06:22] LABS: ADD MORPH? NO; FRAGMENT RBC FLAG 0 (0-99); HEMOGLOBIN 7.6 g/dL (13.7-17.5); LEFT SHIFT FLG 0 (0-99); LIPEMIA HEMOLYSIS FLAG 90 (0-99); PLATELET CLUMPS FLAG 0 (0-99); RED CELL DISTRIBUTION WIDTH 12.9 % (11.5-15.2)
[2017-09-12 06:23] LABS: ATYPICAL LYMPHOCYTE FLAG 10 (0-99); HEMATOCRIT 21.3 % (40.0-51.0); MEAN CELL HEMOGLOBIN 31.7 pg (27.9-34.1); MEAN CELL HEMOGLOBIN CONCENTR. 35.7 g/dL (32.4-36.7); MEAN CELL VOLUME 88.8 fL (81.5-99.8); MEAN PLATELET VOLUME 9.8 fL (8.7-11.7); PLATELET COUNT 104 10^3/uL (150-400)
[2017-09-12 06:27] LABS: ADD DIFF? NO; ADD SCAN? NO
[2017-09-12 06:47] LABS: CHLORIDE 103 mEq/L (97-110)
[2017-09-12 06:50] LABS: ANION GAP 11 mEq/L (8-16); CARBON DIOXIDE 25 mEq/l (22-31); GLOMERULAR FILTRATION RATE > 60; GLUCOSE 106 mg/dL (70-100); POTASSIUM 4.2 mEq/L (3.5-5.2); SODIUM 139 mEq/L (134-144)
[2017-09-12] MEDS: ACETAMINOPHEN 325 MG TAB PO PRN ×2 (08:50→23:11)
[2017-09-12] MEDS: ACYCLOVIR 400 MG TAB PO SCH ×2 (08:52→22:12)
[2017-09-12] MEDS: FLUCONAZOLE 100 MG TAB PO SCH (08:52)
[2017-09-12] MEDS: ONDANSETRON DISINTEGRATING 4 MG TAB PO SCH ×2 (10:47→22:13)
--- NOTE | 2017-09-12 11:30 | SOAPPROG ---
SOAP Progress Note Assessment/Plan: Assessment: 1. AML flt 3 7&3 and midostaurin: Today (12 SEP 2017) is day 21 of induction and day 9 of midostaurin Emir Bmbx shows no blasts. This is consistent with a remission bone marrow. 2. Pancytopenia: No transfusions today. good recovery of platelets, wbc and rbc lagging a bit 3. Febrile neutropenia: afebrile 4. Rash - petechial. Resolved 5. back pain Plan: 1. No transfusions today 2. Wait for counts to recover, continue zosyn 3. Manual diff on WBC 4. HLA kit sent out 09 SEP 2017 5. Continue midostaurin 09/12/17 11:25 Subjective: Feels ok, some back pain Objective: Vital Signs Temp Pulse Resp BP Pulse Ox 98.1 F 99 20 98/70 L 92 09/12/17 08:55 09/12/17 08:55 09/12/17 08:55 09/12/17 08:55 09/12/17 08:55 Laboratory Results 09/12/17 06:15 09/12/17 06:15 09/11/17 09/12/17 09/13/17 05:59 05:59 05:59 Intake Total 1050 1950 Output Total 1375 1700 Balance -325 250 PT 14.1 SEC (12.0-15.0) 09/07/17 06:00 INR 1.10 (0.83-1.16) 09/07/17 06:00 Physical Exam - Physical Exam General Appearance: alert, no apparent distress Respiratory: lungs clear, normal breath sounds Cardiac/Chest: regular rate, rhythm Abdomen: normal bowel sounds, non-tender ICD10 Worksheet Patient Problems: Problems Problem Status Onset Acute myeloid leukemia Acute Neutropenic fever Acute
[2017-09-12] MEDS: RYDAPT 25 MG PO SCH ×2 (12:13→23:09)
--- NOTE | 2017-09-12 13:22 | HOSPPROG ---
Hospitalist Progress Note Assessment/Plan: DIAGNOSES: # AML in for induction, day 21; last bone marrow biopsy result suggestive of probable remission # neutropenic fever, resolved # pancytopenia -no indications for any transfusions today # positive IgM for CMV but DNA test negative Overall he is tolerating this treatment so far reasonably well and is very stable at the moment. Will need ongoing monitoring of blood counts and probably further transfusions. At this point his main complaint is back pain which is being aggravated by the hospital bed. Will see what we can do with possible modifications of his bed or physical therapy interventions to help with that. PLANS: -continue current monitoring and transfusion protocols -continue current prophylactic treatments -continue current Zosyn, acyclovir, fluconazole -I have asked the nurses to investigate with the patient other bed options that he might use here that could be easier for his back I reviewed case in detail today with Dr. Sourav Bob SUBJECTIVE: Today main complaints are boredom and again the same back pain, particular with the back pain being aggravated by the hospital bed No chills or sweats or other symptoms to suggest infection or mucositis No respiratory symptoms, no bleeding or bruising OBJECTIVE Vitals reviewed: Stable without fever Exam: alert oriented skin warm dry color ok resps not labored lungs clear BSs heart regular abd soft nondistended nontender, bowel sounds present limbs warm, no edema PICC site ok Laboratory data reviewed Objective: Vital Signs Temp Pulse Resp BP Pulse Ox 36.7 C 99 20 98/70 L 92 09/12/17 08:55 09/12/17 08:55 09/12/17 08:55 09/12/17 08:55 09/12/17 08:55 Laboratory Results 09/12/17 06:15 09/12/17 06:15 09/11/17 09/12/17 09/13/17 06:59 06:59 06:59 Intake Total 1050 1950 Output Total 1375 1700 Balance -325 250 PT 14.1 SEC (12.0-15.0) 09/07/17 06:00 INR 1.10 (0.83-1.16) 09/07/17 06:00 ICD10 Worksheet Patient Problems: Problems Problem Status Onset Acute myeloid leukemia Acute Neutropenic fever Acute
--- NOTE | 2017-09-12 16:18 | PCMIDPN ---
Assessment/Plan: Assessment/Plan: 1. Neutrapenic Fever in patient with AML s/p induction: - multiple cultures ngtd. -no fevers for several days now. -Counts still low.ANC 30 Curently on empiric zosyn -Continue as is for now 2. Rash: - nearly resolved 3. CMV IgM positive with negative PCR Meds zosyn 4.5g q6- 08/30/17 prophylactic acyclovir/fluconazole Subjective: afebrile. feeling more tired today. denies sorethroat or mouth pain, denies abd pain or diarrhea. has loose bm 1x/day. rash nearly resolved. hair starting to fall out today. back pain but better since new bed in room now. Objective: Vital Signs Temp Pulse Resp BP Pulse Ox 36.7 C 99 20 98/70 L 92 09/12/17 08:55 09/12/17 08:55 09/12/17 08:55 09/12/17 08:55 09/12/17 08:55 Laboratory Results 09/12/17 06:15 09/12/17 06:15 09/11/17 09/12/17 09/13/17 05:59 05:59 05:59 Intake Total 1050 1950 Output Total 1375 1700 Balance -325 250 - Physical Exam General Appearance: alert, no apparent distress EENT: No thrush Respiratory: lungs clear Cardiac/Chest: regular rate, rhythm Extremities: No swelling Abdomen: normal bowel sounds, non-tender, soft, No distended Skin: No rash ICD10 Worksheet Patient Problems: Problems Problem Status Onset Acute myeloid leukemia Acute Neutropenic fever Acute
[2017-09-13] MEDS: ACETAMINOPHEN 325 MG TAB PO PRN (02:32)
[2017-09-13] MEDS: oxyCODONE IR 5 MG TAB PO PRN ×5 (02:32→20:11)
[2017-09-13] MEDS: PIPERACILLIN/TAZO 4.5 GM/DEX 100 ML IV SCH ×3 (06:03→17:52)
[2017-09-13 06:21] LABS: ADD MORPH? NO; ATYPICAL LYMPHOCYTE FLAG 40 (0-99); FRAGMENT RBC FLAG 0 (0-99); HEMATOCRIT 21.6 % (40.0-51.0); HEMOGLOBIN 7.6 g/dL (13.7-17.5); LEFT SHIFT FLG 10 (0-99); LIPEMIA HEMOLYSIS FLAG 90 (0-99); MEAN CELL HEMOGLOBIN 31.5 pg (27.9-34.1); MEAN CELL HEMOGLOBIN CONCENTR. 35.2 g/dL (32.4-36.7); MEAN CELL VOLUME 89.6 fL (81.5-99.8); MEAN PLATELET VOLUME 9.2 fL (8.7-11.7); PLATELET CLUMPS FLAG 10 (0-99); PLATELET COUNT 202 10^3/uL (150-400); RED BLOOD CELL COUNT 2.41 10^6/uL (4.40-6.38); RED CELL DISTRIBUTION WIDTH 12.9 % (11.5-15.2)
[2017-09-13 06:26] LABS: ADD SCAN? NO
[2017-09-13 06:28] LABS: ABSOLUTE IMMATURE GRANULOCYTES 0.01 10^3/uL (0.00-0.10); ADD DIFF? NO
--- NOTE | 2017-09-13 07:07 | SOAPPROG ---
SOAP Progress Note Assessment/Plan: Assessment: 1. AML flt 3 7&3 and midostaurin: Today (13 SEP 2017) is day 22 of induction and day 10 of midostaurin. Emir Bmbx shows no blasts. This is consistent with a remission bone marrow. 2. Pancytopenia: No transfusions today. good recovery of platelets, wbc and rbc lagging a bit 3. Febrile neutropenia: afebrile 4. Rash - petechial. Resolved 5. back pain, this is a chronic issue, it got better during chemo but I think that was the steroids, I think it would be ok to use some judicious ibuprofen for now which has helped him in the past. Plan: 1. No transfusions today 2. Wait for counts to recover, continue zosyn 3. Manual diff on WBC 4. HLA kit sent out 09 SEP 2017 5. Continue midostaurin 6. Ibuprofen 09/12/17 11:25 09/13/17 07:04 Subjective: Feels ok , back still an issue Objective: Vital Signs Temp Pulse Resp BP Pulse Ox 98.1 F 84 16 101/62 92 09/13/17 04:00 09/13/17 04:00 09/13/17 04:00 09/13/17 04:00 09/13/17 04:00 Laboratory Results 09/13/17 06:15 09/12/17 06:15 09/12/17 09/13/17 09/14/17 05:59 05:59 05:59 Intake Total 1950 1000 Output Total 1700 900 Balance 250 100 PT 14.1 SEC (12.0-15.0) 09/07/17 06:00 INR 1.10 (0.83-1.16) 09/07/17 06:00 Physical Exam - Physical Exam General Appearance: alert, no apparent distress, mild distress Respiratory: lungs clear, normal breath sounds Cardiac/Chest: regular rate, rhythm Abdomen: normal bowel sounds, non-tender ICD10 Worksheet Patient Problems: Problems Problem Status Onset Acute myeloid leukemia Acute Neutropenic fever Acute
[2017-09-13] MEDS: IBUPROFEN 200 MG TAB PO PRN ×2 (08:43→15:55)
[2017-09-13] MEDS: ACYCLOVIR 400 MG TAB PO SCH ×2 (08:45→20:12)
[2017-09-13] MEDS: FLUCONAZOLE 100 MG TAB PO SCH (08:45)
[2017-09-13] MEDS: ONDANSETRON DISINTEGRATING 4 MG TAB PO SCH ×2 (10:42→22:25)
--- NOTE | 2017-09-13 11:01 | ASMTCMCOM ---
CM Note CM Note Notes: CA tx continues. CM following for possible discharge needs. Date Signed: 09/13/2017 11:00 AM Electronically Signed By:Camila Uriostegui LCSW
[2017-09-13] MEDS: RYDAPT 25 MG PO SCH ×2 (12:01→23:03)
--- NOTE | 2017-09-13 16:06 | HOSPPROG ---
Hospitalist Progress Note Assessment/Plan: DIAGNOSES: # AML in for induction, day 22; last bone marrow biopsy result suggestive of probable remission # neutropenic fever, resolved # pancytopenia -no indications for any transfusions today, platelets much better and wbc actually increased today and yest so likely passing rosendo # positive IgM for CMV but DNA test negative Overall he is tolerating this treatment so far reasonably well and is very stable at the moment. Will need ongoing monitoring of blood counts and probably further transfusions. At this point his main complaint is back pain which is being aggravated by the hospital bed. PLANS: -continue current monitoring and transfusion protocols -continue current prophylactic treatments -continue current Zosyn, acyclovir, fluconazole -will add flexeril, hot and cold packs for back SUBJECTIVE: Still with ongoing diffuse back pain, no localizing pain and no radicular symptoms. Somewhat better on his new bed last night. At home he has used alternating cold and hot as well as Flexeril in the past No chills or sweats or other symptoms to suggest infection or mucositis No respiratory symptoms, no bleeding or bruising OBJECTIVE Vitals reviewed: Stable without fever Exam: alert oriented skin warm dry color ok resps not labored lungs clear BSs heart regular abd soft nondistended nontender, bowel sounds present limbs warm, no edema PICC site ok Laboratory data reviewed Objective: Vital Signs Temp Pulse Resp BP Pulse Ox 36.3 C 94 20 100/85 H 96 09/13/17 08:50 09/13/17 08:50 09/13/17 08:50 09/13/17 08:50 09/13/17 08:50 Laboratory Results 09/13/17 06:15 09/12/17 06:15 09/12/17 09/13/17 09/14/17 06:59 06:59 06:59 Intake Total 1950 1000 Output Total 1700 900 Balance 250 100 PT 14.1 SEC (12.0-15.0) 09/07/17 06:00 INR 1.10 (0.83-1.16) 09/07/17 06:00 ICD10 Worksheet Patient Problems: Problems Problem Status Onset Acute myeloid leukemia Acute Neutropenic fever Acute
--- NOTE | 2017-09-13 19:21 | PCMIDPN ---
Assessment/Plan: Assessment/Plan: 1. Neutrapenic Fever in patient with AML s/p induction: - multiple cultures ngtd. -no fevers for several days now. -Counts still low.ANC 80 Curently on empiric zosyn -Continue as is for now 2. Rash: - nearly resolved 3. CMV IgM positive with negative PCR Meds zosyn 4.5g q6- 08/30/17 prophylactic acyclovir/fluconazole Subjective: afebrile. feels well. having ongoing back pain. denies n/t down extremities. back pain has been present for years. denies sob, abd pain. havng loose stools. Objective: Vital Signs Temp Pulse Resp BP Pulse Ox 36.3 C 94 20 100/85 H 96 09/13/17 08:50 09/13/17 08:50 09/13/17 08:50 09/13/17 08:50 09/13/17 08:50 Laboratory Results 09/13/17 06:15 09/12/17 06:15 09/12/17 09/13/17 09/14/17 05:59 05:59 05:59 Intake Total 1950 1000 Output Total 1700 900 Balance 250 100 - Physical Exam General Appearance: alert, no apparent distress Respiratory: lungs clear Cardiac/Chest: regular rate, rhythm Extremities: No swelling Abdomen: normal bowel sounds, non-tender, soft, No distended Skin: No rash ICD10 Worksheet Patient Problems: Problems Problem Status Onset Acute myeloid leukemia Acute Neutropenic fever Acute
[2017-09-13] MEDS: CYCLOBENZAPRINE 10 MG TAB PO PRN (23:01)
[2017-09-14] MEDS: oxyCODONE IR 5 MG TAB PO PRN ×5 (00:14→23:45)
[2017-09-14] MEDS: PIPERACILLIN/TAZO 4.5 GM/DEX 100 ML IV SCH ×5 (00:15→23:33)
[2017-09-14] MEDS: ACETAMINOPHEN 325 MG TAB PO PRN (05:40)
[2017-09-14 07:30] LABS: ADD DIFF? NO; ADD MORPH? NO; ADD SCAN? NO; ATYPICAL LYMPHOCYTE FLAG 0 (0-99); FRAGMENT RBC FLAG 0 (0-99); HEMOGLOBIN 7.1 g/dL (13.7-17.5); LEFT SHIFT FLG 20 (0-99); LIPEMIA HEMOLYSIS FLAG 90 (0-99); PLATELET CLUMPS FLAG 0 (0-99)
[2017-09-14 07:49] LABS: % IMMATURE GRANULYOCYTES 1.9 % (0.0-1.1); ABSOLUTE IMMATURE GRANULOCYTES 0.02 10^3/uL (0.00-0.10); HEMATOCRIT 20.4 % (40.0-51.0); MEAN CELL HEMOGLOBIN 31.4 pg (27.9-34.1); MEAN CELL HEMOGLOBIN CONCENTR. 34.8 g/dL (32.4-36.7); MEAN CELL VOLUME 90.3 fL (81.5-99.8); MEAN PLATELET VOLUME 9.1 fL (8.7-11.7); PLATELET COUNT 364 10^3/uL (150-400); RED BLOOD CELL COUNT 2.26 10^6/uL (4.40-6.38); RED CELL DISTRIBUTION WIDTH 13.2 % (11.5-15.2)
[2017-09-14] MEDS: IBUPROFEN 200 MG TAB PO PRN ×2 (11:40→17:41)
[2017-09-14] MEDS: ONDANSETRON DISINTEGRATING 4 MG TAB PO SCH (11:40)
[2017-09-14] MEDS: FLUCONAZOLE 100 MG TAB PO SCH (11:41)
[2017-09-14] MEDS: ACYCLOVIR 400 MG TAB PO SCH ×2 (11:41→21:04)
[2017-09-14] MEDS: RYDAPT 25 MG PO SCH ×2 (11:41→23:34)
[2017-09-14 12:19] LABS: BANDING METHODS See Comments
--- NOTE | 2017-09-14 13:22 | SOAPPROG ---
SOERMELINDA Progress Note Assessment/Plan: E&M for AML * AML, nl cyto, FLT-3+: Day 23 of 7+3 ([place]) and day 11/14 of midostaurin. Emir Bmbx shows no blasts appears to be in remission. Probably able to go home in a few days. Will d/c PICC on d/c. Will need to f/u with DR. Winn and with BMT. * Pancytopenia: No transfusions today. Platelets recovered. WBC rising. * Febrile neutropenia: afebrile on abx; when ANC>500 can d/c abx. * Chronic back pain: Improved during chemo but probably due to the steroids. Judicious ibuprofen for now, which has helped him in the past, ok. Subjective: No mouth sores. Some diarrhea but better and without pain. No pain or swelling RUE. Objective: Vital Signs Temp Pulse Resp BP Pulse Ox 36.6 C 81 17 94/62 L 90 L 09/14/17 12:00 09/14/17 12:00 09/14/17 12:00 09/14/17 12:00 09/14/17 12:00 Laboratory Results 09/14/17 05:25 09/12/17 06:15 09/13/17 09/14/17 09/15/17 05:59 05:59 05:59 Intake Total 1000 1000 Output Total 900 950 800 Balance 100 50 -800 PT 14.1 SEC (12.0-15.0) 09/07/17 06:00 INR 1.10 (0.83-1.16) 09/07/17 06:00 Laboratory Tests 09/12/17 09/13/17 09/14/17 06:15 06:15 05:25 WBC 0.77 L* 0.96 L* 1.07 L Hgb 7.6 L 7.6 L 7.1 L Plt Count 104 L D 202 D 364 D Absolute Neuts (auto) 0.03 L 0.08 L 0.21 L Physical Exam - Physical Exam General Appearance: no apparent distress EENT: pharynx normal Respiratory: lungs clear, normal breath sounds Cardiac/Chest: regular rate, rhythm, No edema Abdomen: soft Skin: other (PICC on right without infection) ICD10 Worksheet Patient Problems: Problems Problem Status Onset Pancytopenia due to antineoplastic chemotherapy Acute Neutropenic fever Acute Acute myeloid leukemia Acute
--- NOTE | 2017-09-14 14:37 | PCMIDPN ---
Assessment/Plan: Assessment: neutropenic fever in patient status post AML induction. No new complaints. Patient remains on empiric antibiotic coverage with Zosyn, fluconazole and acyclovir. His counts are clearly on the up swing. No changes at this point. Hopefully will be able to discontinue his antibiotics in the next 24-48 hours. Plan: 1) Continue current antibiotic regimen. 2) Follow temperature curve and white blood cell counts. 09/14/17 18:06 Subjective: Patient is resting in his hospital room. He notes no new complaints. Denies fevers or chills. Objective: Zosyn # 15 Fluconazole Acyclovir Vital Signs Temp Pulse Resp BP Pulse Ox 36.6 C 81 17 94/62 L 90 L 09/14/17 12:00 09/14/17 12:00 09/14/17 12:00 09/14/17 12:00 09/14/17 12:00 Laboratory Results 09/14/17 05:25 09/12/17 06:15 09/13/17 09/14/17 09/15/17 05:59 05:59 05:59 Intake Total 1000 1000 Output Total 900 950 800 Balance 100 50 -800 - Physical Exam General Appearance: WD/WN, alert, no apparent distress, non-toxic Cardiac/Chest: regular rate, rhythm, No tachycardia Skin: normal color, warm/dry, No rash Neuro/Psych: alert, normal mood/affect, oriented x 3 ICD10 Worksheet Patient Problems: Problems Problem Status Onset Acute myeloid leukemia Acute Neutropenic fever Acute Pancytopenia due to antineoplastic chemotherapy Acute
--- NOTE | 2017-09-14 16:33 | HOSPPROG ---
Hospitalist Progress Note Assessment/Plan: DIAGNOSES: # AML in for induction, day 23; last bone marrow biopsy result suggestive of probable remission # neutropenic fever, resolved # pancytopenia -no indications for any transfusions today, platelets much better and wbc increased again today # positive IgM for CMV but DNA test negative Again continues to improve in terms of his cell counts today, may need some further red cell transfusion but will need platelets. Hopefully within a couple of days he will have enough neutrophils that infection risks will decreased dramatically. May be able to discharge sometime around mid week. PLANS: -continue current monitoring and transfusion protocols -continue current prophylactic treatments -continue current Zosyn, acyclovir, fluconazole -will add flexeril, hot and cold packs for back I reviewed in detail today with Dr. Chavez SUBJECTIVE: Chronic back pain, ongoing, no better or worse today, still no radicular or neuropathic symptoms No symptoms of mucosal or skin or ocular disease No respiratory symptoms, abdominal discomfort, chills or sweats OBJECTIVE Vitals reviewed: Stable without fever Exam: alert oriented skin warm dry color ok resps not labored lungs clear BSs heart regular abd soft nondistended nontender, bowel sounds present limbs warm, no edema PICC site ok Laboratory data: Platelet count now greater than 300,000 Total white count now greater than 1000 with 210 neutrophils Hemoglobin at 7.1 slight decrease today Objective: Vital Signs Temp Pulse Resp BP Pulse Ox 36.6 C 81 17 94/62 L 90 L 09/14/17 12:00 09/14/17 12:00 09/14/17 12:00 09/14/17 12:00 09/14/17 12:00 Laboratory Results 09/14/17 05:25 09/12/17 06:15 09/13/17 09/14/17 09/15/17 06:59 06:59 06:59 Intake Total 1000 1000 Output Total 900 1750 Balance 100 -750 PT 14.1 SEC (12.0-15.0) 09/07/17 06:00 INR 1.10 (0.83-1.16) 09/07/17 06:00 ICD10 Worksheet Patient Problems: Problems Problem Status Onset Acute myeloid leukemia Acute Neutropenic fever Acute Pancytopenia due to antineoplastic chemotherapy Acute
[2017-09-14] MEDS: CYCLOBENZAPRINE 10 MG TAB PO PRN (22:46)
[2017-09-14] MEDS: ONDANSETRON DISINTEGRATING 4 MG TAB PO PRN (22:46)
[2017-09-15] MEDS: PIPERACILLIN/TAZO 4.5 GM/DEX 100 ML IV SCH (05:58)
[2017-09-15 06:18] LABS: ABSOLUTE NRBC COUNT 0.02 10^3/uL (0-0.01); ADD DIFF? YES; ADD MORPH? YES; ADD SCAN? NO; ATYPICAL LYMPHOCYTE FLAG 0 (0-99); FRAGMENT RBC FLAG 0 (0-99); HEMATOCRIT 19.8 % (40.0-51.0); LEFT SHIFT FLG 30 (0-99); LIPEMIA HEMOLYSIS FLAG 90 (0-99); MEAN CELL HEMOGLOBIN 31.5 pg (27.9-34.1); MEAN CELL HEMOGLOBIN CONCENTR. 34.8 g/dL (32.4-36.7); MEAN CELL VOLUME 90.4 fL (81.5-99.8); MEAN PLATELET VOLUME 8.6 fL (8.7-11.7); PLATELET CLUMPS FLAG 10 (0-99); PLATELET COUNT 486 10^3/uL (150-400); RED BLOOD CELL COUNT 2.19 10^6/uL (4.40-6.38); RED CELL DISTRIBUTION WIDTH 13.1 % (11.5-15.2)
[2017-09-15 06:23] LABS: HEMOGLOBIN 6.9 g/dL (13.7-17.5); NRBC-AUTO% 1.2 % (0.0-0.2)
[2017-09-15 07:11] LABS: HYPOCHROMIA 2+; MICROCYTES 2+; PLATELET ESTIMATE ADEQUATE (ADEQ)
--- NOTE | 2017-09-15 11:01 | SOAPPROG ---
SOAP Progress Note Assessment/Plan: E&M for AML * AML, nl cyto, FLT-3+: Day 24 of 7+3 ([facility]) and day 12/14 of midostaurin. Emir Bmbx shows no blasts and appears to be in remission. Probably able to go home in a few days. Will d/c PICC on d/c. Will need to f/u with DR. Winn and with BMT. * Pancytopenia: Platelets recovered. WBC rising. Discussed RBC transfusion but he wanted to hold off for now. * Febrile neutropenia: afebrile on abx; Discussed with ID and I'm ok with stopping abx and watching another day. She is going to evaluate him and decide. * Chronic back pain: Improved during chemo but probably due to the steroids. Judicious ibuprofen for now, which has helped him in the past, ok. Subjective: Just waking up. Denies mouth pain, chest pain, or sob. Still with loose stools 2x day. No pain and no hematochezia. Objective: Vital Signs Temp Pulse Resp BP Pulse Ox 36.8 C 83 15 91/50 L 90 L 09/15/17 06:00 09/15/17 06:00 09/15/17 06:00 09/15/17 06:00 09/15/17 06:00 Laboratory Results 09/15/17 06:00 09/12/17 06:15 09/14/17 09/15/17 09/16/17 05:59 05:59 05:59 Intake Total 1000 1940 Output Total 950 1975 Balance 50 -35 PT 14.1 SEC (12.0-15.0) 09/07/17 06:00 INR 1.10 (0.83-1.16) 09/07/17 06:00 Physical Exam - Physical Exam General Appearance: no apparent distress EENT: pharynx normal Respiratory: lungs clear Cardiac/Chest: regular rate, rhythm Abdomen: normal bowel sounds, non-tender, soft Skin: other (PICC on right without s/sx of infection) ICD10 Worksheet Patient Problems: Problems Problem Status Onset Acute myeloid leukemia Acute Neutropenic fever Acute Pancytopenia due to antineoplastic chemotherapy Acute
[2017-09-15] MEDS: FLUCONAZOLE 100 MG TAB PO SCH (11:04)
[2017-09-15] MEDS: ACYCLOVIR 400 MG TAB PO SCH ×2 (11:05→20:45)
--- NOTE | 2017-09-15 11:10 | PCMIDPN ---
Assessment/Plan: # Neutropenic fever in the setting of AML status post induction chemotherapy: Fever resolved and Neutropenia almost resolved now with ANC = 300s and continued general trend up in total WBC. No fever since 09/03. No further abdominal pain --dc zosyn --continue acyclovir, fluconazole prophylaxis for now. Likely DC fluconazole prior to dc # severe back pain without point tenderness to palpation or focal neurologic deficit: Primary complaint now. Will obtain MRI of the lumbar spine and pelvis # Positive CMV: Recheck IgM/IgG Antibiotics # 19 zosyn 4.5 gm IV q6h #16 fluconazole 200mg PO daily Acyclovir 400 mg p.o. twice daily microbiology Blood cx 08/30, 08/27 are Neg. blood cx 09/03 neg Subjective: Patient is somewhat upset during my visit today complaining of lower back pain that is keeping him from sleeping. He states that back pain preceded chemotherapy and during chemotherapy it transiently felt improved. Denies numbness in his lower extremities. Objective: Vital Signs Temp Pulse Resp BP Pulse Ox 36.8 C 83 15 91/50 L 90 L 09/15/17 06:00 09/15/17 06:00 09/15/17 06:00 09/15/17 06:00 09/15/17 06:00 Laboratory Results 09/15/17 06:00 09/12/17 06:15 09/14/17 09/15/17 09/16/17 05:59 05:59 05:59 Intake Total 1000 1940 Output Total 950 1975 Balance 50 -35 - Physical Exam General Appearance: alert, no apparent distress EENT: pale conjunctiva, other (No oral lesions), No scleral icterus, No pharyngeal erythema, No thrush Respiratory: lungs clear, No accessory muscle use Neck: supple Cardiac/Chest: regular rate, rhythm Extremities: No pedal edema Abdomen: non-tender, soft Skin: pallor, No rash Neuro/Psych: alert, normal mood/affect, oriented x 3 - Line/s RUE PICC Lines: No drainage, No erythema - Time Spent With Patient Time Spent with Patient: greater than 35 minutes (Care was coordinated with Oncology) Time Spent with Patient: Greater than 35 minutes spent on this patients care, greater than 50% of time spent counseling, educating, and coordinating care regarding the above mentioned plan. ICD10 Worksheet Patient Problems: Problems Problem Status Onset Acute myeloid leukemia Acute Neutropenic fever Acute Pancytopenia due to antineoplastic chemotherapy Acute
[2017-09-15] MEDS: IBUPROFEN 200 MG TAB PO PRN ×2 (12:36→20:44)
[2017-09-15] MEDS: LOPERAMIDE HCL 2 MG CAP PO PRN (12:36)
[2017-09-15] MEDS: oxyCODONE IR 5 MG TAB PO PRN ×3 (12:36→20:45)
[2017-09-15] MEDS: RYDAPT 25 MG PO SCH ×2 (12:39→22:28)
[2017-09-15] MEDS ORDERED: GADOBUTROL 10 ML VIAL IVP ONE (16:28)
--- NOTE | 2017-09-15 17:24 | HOSPPROG ---
Hospitalist Progress Note Assessment/Plan: DIAGNOSES: # AML in for induction, day 24; last bone marrow biopsy result suggestive of probable remission # neutropenic fever, resolved # pancytopenia -no indications for any transfusions today, platelets much better and wbc increased again today # positive IgM for CMV but DNA test negative Again continues to improve in terms of his cell counts today, may need some further red cell transfusion but will need platelets. Hopefully within a couple of days he will have enough neutrophils that infection risks will decreased dramatically. May be able to discharge sometime around mid week. PLANS: -continue current monitoring and transfusion protocols -continue current prophylactic treatments -continue current, acyclovir, fluconazole -Zosyn stops by Dr. Peralta with his ANC now greater than 300 and no fevers -Flexeril last night for his back made him too sleepy but was helpful, will change to Robaxin and CV tolerates that better -MRI ordered to eval back pain -if continues to do well could potentially be discharged in 1-2 days I reviewed in detail today with Dr. Chavez SUBJECTIVE: Ongoing back pain continues. He actually did better with it last night with Flexeril but says that made him unable to wake up this morning No symptoms to suggest fever or any other new problems OBJECTIVE Vitals reviewed: Stable without fever Exam: alert oriented skin warm dry color ok resps not labored lungs clear BSs heart regular abd soft nondistended nontender, bowel sounds present limbs warm, no edema PICC site ok Objective: Vital Signs Temp Pulse Resp BP Pulse Ox 36.3 C 95 19 118/68 94 09/15/17 16:00 09/15/17 16:00 09/15/17 16:00 09/15/17 16:00 09/15/17 16:00 Laboratory Results 09/15/17 06:00 09/12/17 06:15 09/14/17 09/15/17 09/16/17 06:59 06:59 06:59 Intake Total 1000 1940 Output Total 1750 1175 Balance -750 765 PT 14.1 SEC (12.0-15.0) 09/07/17 06:00 INR 1.10 (0.83-1.16) 09/07/17 06:00 ICD10 Worksheet Patient Problems: Problems Problem Status Onset Acute myeloid leukemia Acute Neutropenic fever Acute Pancytopenia due to antineoplastic chemotherapy Acute
[2017-09-15] MEDS: METHOCARBAMOL 750 MG TAB PO PRN (22:25)
[2017-09-15] MEDS: ONDANSETRON DISINTEGRATING 4 MG TAB PO PRN (22:25)
[2017-09-16] MEDS: oxyCODONE IR 5 MG TAB PO PRN ×2 (00:40→21:03)
[2017-09-16] MEDS: ACETAMINOPHEN 325 MG TAB PO PRN (00:43)
[2017-09-16 06:48] LABS: ABSOLUTE NRBC COUNT 0.02 10^3/uL (0-0.01); ADD DIFF? YES; ADD MORPH? NO; ADD SCAN? NO; ATYPICAL LYMPHOCYTE FLAG 0 (0-99); FRAGMENT RBC FLAG 0 (0-99); HEMATOCRIT 21.3 % (40.0-51.0); HEMOGLOBIN 7.3 g/dL (13.7-17.5); LEFT SHIFT FLG 30 (0-99); LIPEMIA HEMOLYSIS FLAG 90 (0-99); MEAN CELL HEMOGLOBIN 31.3 pg (27.9-34.1); MEAN CELL HEMOGLOBIN CONCENTR. 34.3 g/dL (32.4-36.7); MEAN CELL VOLUME 91.4 fL (81.5-99.8); MEAN PLATELET VOLUME 8.5 fL (8.7-11.7); NRBC-AUTO% 0.8 % (0.0-0.2); PLATELET CLUMPS FLAG 0 (0-99); PLATELET COUNT 623 10^3/uL (150-400); RED BLOOD CELL COUNT 2.33 10^6/uL (4.40-6.38); RED CELL DISTRIBUTION WIDTH 13.4 % (11.5-15.2)
[2017-09-16 08:01] LABS: HYPOCHROMIA 1+; POLYCHROMASIA 2+
[2017-09-16 08:02] LABS: PLATELET ESTIMATE INCREASED (ADEQ)
[2017-09-16] MEDS: METHOCARBAMOL 750 MG TAB PO PRN ×2 (10:24→22:30)
[2017-09-16] MEDS: FLUCONAZOLE 100 MG TAB PO SCH (10:24)
[2017-09-16] MEDS: IBUPROFEN 200 MG TAB PO PRN (10:24)
[2017-09-16] MEDS: RYDAPT 25 MG PO SCH ×2 (10:25→23:39)
[2017-09-16] MEDS: ACYCLOVIR 400 MG TAB PO SCH ×2 (10:25→21:01)
--- NOTE | 2017-09-16 13:11 | SOAPPROG ---
SOAP Progress Note Assessment/Plan: E&M for AML * AML, nl cyto, FLT-3+: Day 25 of 7+3 ([facility]) and day 13/14 of midostaurin. Emir Bmbx shows no blasts and appears to be in remission. Probably able to go home soon. Will d/c PICC on d/c. Will need to f/u with DR. Winn and with BMT. * Pancytopenia: Platelets recovered. WBC rising. Hold off blood transfusion for now. * Febrile neutropenia: afebrile off abx; * Chronic back pain: Improved during chemo but probably due to the steroids. Judicious ibuprofen for now, which has helped him in the past. MRI results not specific. Agree with outpatient nsgy consult. Marrow changes probably due to recovering. Will get another BM bx in a couple of weeks. Subjective: Worried about back pain. No other complaints today. Objective: Vital Signs Temp Pulse Resp BP Pulse Ox 36.5 C 69 18 90/62 L 95 09/16/17 10:27 09/16/17 10:27 09/16/17 10:27 09/16/17 10:27 09/16/17 10:27 Laboratory Results 09/16/17 06:15 09/12/17 06:15 09/15/17 09/16/17 09/17/17 05:59 05:59 05:59 Intake Total 1940 850 Output Total 1975 800 Balance -35 50 PT 14.1 SEC (12.0-15.0) 09/07/17 06:00 INR 1.10 (0.83-1.16) 09/07/17 06:00 Laboratory Tests 09/13/17 09/14/17 09/15/17 06:15 05:25 06:00 WBC 0.96 L* 1.07 L 1.67 L Hgb 7.6 L 7.1 L 6.9 L Plt Count 202 D 364 D 486 H D Absolute Neuts (auto) 0.08 L 0.21 L Absolute Seg Neuts 0.38 L Absolute Monocytes 0.32 09/16/17 06:15 WBC 2.50 L Hgb 7.3 L Plt Count 623 H D Absolute Neuts (auto) Absolute Seg Neuts 0.40 L Absolute Monocytes MRI of the Lumbar Spine (Without and With Contrast) Impression: Possibly very early pathologic compressions of T12 and L1 and possibly an early Schmorl 's node developing in L2. Dictated By: Simon Hutchinson MD MRI pelvis without and with contrast Impression: 1. 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 No evidence for avascular necrosis of the femoral head or stress fracture of the femoral neck. 2. 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 Preliminary results were discussed with the nurse on the floor by Dr. Víctor Altamirano at 1821 hours on 15 September 2017. Dictated By: Efren Murray MD Physical Exam - Physical Exam General Appearance: no apparent distress Respiratory: lungs clear Cardiac/Chest: regular rate, rhythm Abdomen: non-tender, soft Back: Other (nontender) ICD10 Worksheet Patient Problems: Problems Problem Status Onset Acute myeloid leukemia Acute Neutropenic fever Acute Pancytopenia due to antineoplastic chemotherapy Acute
--- NOTE | 2017-09-16 15:01 | HOSPPROG ---
Hospitalist Progress Note Assessment/Plan: New patient encounter DIAGNOSES: # AML in for induction, day 25; last bone marrow biopsy result suggestive of probable remission # neutropenic fever, resolved # pancytopenia, improving -no indications for any transfusions today -platelets and WBC cont to improve -abx were stopped on 09/15 # positive IgM for CMV but DNA test negative #Acute on Chronic back pain with MRI ?compression fracture -back pain is much better today -no radiculopathy or leg weakness -Notified NS who will consult Plan: -Continue off abx -Can likely discharge tomorrow -Cont Acyclovir and Fluconazole for prophylaxis -Await NS reccs -Pain mgtm: Ibuprofen, Robaxin, Oxycodone d/w Oncology and Neurosurgery Subjective: Back pain is better. Requesting Neurosurgical evaluation. No leg weakness, no radiculopathy Objective: Vital Signs Temp Pulse Resp BP Pulse Ox 36.5 C 69 18 90/62 L 95 09/16/17 10:27 09/16/17 10:27 09/16/17 10:27 09/16/17 10:27 09/16/17 10:27 Laboratory Results 09/16/17 06:15 09/12/17 06:15 09/15/17 09/16/17 09/17/17 05:59 05:59 05:59 Intake Total 1940 850 Output Total 1975 800 Balance -35 50 PT 14.1 SEC (12.0-15.0) 09/07/17 06:00 INR 1.10 (0.83-1.16) 09/07/17 06:00 - Physical Exam Constitutional: no apparent distress, appears nourished Eyes: PERRL, EOMI Ears, Nose, Mouth, Throat: moist mucous membranes, hearing normal Cardiovascular: regular rate and rhythym, No edema Respiratory: no respiratory distress, no rales or rhonchi, clear to auscultation Gastrointestinal: normoactive bowel sounds, soft, non-tender abdomen Skin: warm Neurologic: AAOx3 Psychiatric: interacting appropriately, not anxious, not encephalopathic ICD10 Worksheet Patient Problems: Problems Problem Status Onset Acute myeloid leukemia Acute Neutropenic fever Acute Pancytopenia due to antineoplastic chemotherapy Acute
--- NOTE | 2017-09-16 15:20 | ASMTCMCOM ---
CM Note CM Note Notes: Pt may be ready for DC tomorrow per MD. His PICC line will be DC'd and he should have no other DC needs. Date Signed: 09/16/2017 03:19 PM Electronically Signed By:Jazmine Alanis LCSW
--- NOTE | 2017-09-16 19:48 | GCON ---
[f rep st] CONSULTATION NEUROSURGICAL CONSULTATION. DATE OF CONSULTATION: 09/16/2017 CHIEF COMPLAINT: Low back pain. Patient is a pleasant 42-year-old gentleman with a history of AML. He has been admitted to the hospital by Medicine for neutropenic fevers. Today, I was contacted by Dr. Healy for neurosurgical consultation regarding the patient' s chronic low back pain. Patient currently reports a 10 year history of low back pain that he reports has worsened since this summer. This pain is not associated with any radiating radicular pain in the thoracic or in the chest or abdomen. It is not associated with any lumbar radicular pain, weakness, tingling, or bowel or bladder changes. The patient states that the pain is in a general area across his low back and his upper lumbar spine. PAST MEDICAL HISTORY: 1. Acute myeloid leukemia. 2. Chronic low back pain. FAMILY HISTORY: 1. Leukemia in his paternal grandmother. 2. Maternal grandmother with a solid malignancy. SOCIAL HISTORY: The patient smokes cigarettes and marijuana occasionally. He drinks alcohol on the weekends, but has not been drinking since admission. He lives with a roommate. 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 REVIEW OF SYSTEMS: Currently negative other than chronic low back pain. PHYSICAL EXAM: GENERAL: Pleasant, tired appearing, 42-year-old male in no apparent distress. HEAD, EARS, NOSE, THROAT: Within normal limits. EXTREMITIES : Within normal limits. NEUROLOGIC: Patient is awake, alert, oriented x4. Cranial nerves 2-12 are intact to gross examination. Speech is fluent. Tongue is midline. He has equal and symmetric strength of the bilateral upper and lower extremities with normal sensation in all dermatome distributions of bilateral upper and lower extremities. He has 1+/4 reflexes in the bilateral biceps, brachioradialis, and patellar tendons. There is no Davis's. The patient is nontender to palpation in his thoracic or lumbar spine. DATA REVIEW: MRI of the lumbar spine dated 09/15/2017 was reviewed and demonstrates, per the report, possible very early pathologic compressions of T12 and L1. This image was reviewed with Dr. Purdy, and these findings are very subtle. The imaging is not impressive for any obvious evidence of compression fracture. MRI of the pelvis dated 09/15/2017 demonstrates diffuse bone marrow replacement compatible with the patient's underlying acute myelogenous leukemia. No evidence of avascular necrosis of the femoral head or stress fracture of the femoral neck. 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 IMPRESSION: This is a 42-year-old male with a 10 year history of chronic low back pain that worsened this past summer. Currently, the patient is not experiencing any lower extremity radicular symptoms or neurologic deficits. His imaging studies are not impressive for obvious compression fracture. He does have some pain across his low back that theoretically could be related to compression fractures of T12 and L1. However, as mentioned, this is not very impressive for fracture. PLAN: All above issues were discussed with Dr. Purdy who reviewed the imaging studies and saw the patient. At this time, the patient could wear a brace for comfort; however, I think this is not necessary and instead his pain would likely be managed as it has been with judicious use of ibuprofen as needed. As such, we recommend this patient follow up with Dr. Purdy as an outpatient in approximately 2-3 weeks. We do not need any imaging studies prior to his appointment at that time, as that will be discussed with Dr. Purdy at the time of the appointment. In addition, we do not need any biopsies of the T12 or L1 vertebral bodies. The patient was provided our contact information and instructed to make a phone call for an appointment in approximately 2-[address] Purdy. /[id number]/MODL MTDD
[2017-09-16] MEDS: ONDANSETRON DISINTEGRATING 4 MG TAB PO PRN (22:31)
[2017-09-17 06:21] LABS: ABSOLUTE NRBC COUNT 0.03 10^3/uL (0-0.01); ADD DIFF? YES; ADD MORPH? NO; ADD SCAN? NO; ATYPICAL LYMPHOCYTE FLAG 10 (0-99); FRAGMENT RBC FLAG 0 (0-99); HEMOGLOBIN 7.5 g/dL (13.7-17.5); LEFT SHIFT FLG 30 (0-99); LIPEMIA HEMOLYSIS FLAG 90 (0-99); MEAN CELL HEMOGLOBIN 31.4 pg (27.9-34.1); MEAN CELL HEMOGLOBIN CONCENTR. 34.1 g/dL (32.4-36.7); MEAN CELL VOLUME 92.1 fL (81.5-99.8); MEAN PLATELET VOLUME 8.1 fL (8.7-11.7); NRBC-AUTO% 0.9 % (0.0-0.2); PLATELET CLUMPS FLAG 0 (0-99); PLATELET COUNT 657 10^3/uL (150-400); RED BLOOD CELL COUNT 2.39 10^6/uL (4.40-6.38); RED CELL DISTRIBUTION WIDTH 13.2 % (11.5-15.2)
[2017-09-17 06:57] LABS: PLATELET ESTIMATE INCREASED (ADEQ)
[2017-09-17 06:58] LABS: POLYCHROMASIA 1+
[2017-09-17] MEDS ORDERED: oxyCODONE IR 5 MG TAB PO PRN (08:30)
[2017-09-17] MEDS: FLUCONAZOLE 100 MG TAB PO SCH (09:28)
[2017-09-17] MEDS: ACYCLOVIR 400 MG TAB PO SCH (09:28)
[2017-09-17] MEDS: IBUPROFEN 200 MG TAB PO PRN (09:32)
[2017-09-17 09:54] VITALS: BP 104/68; PULSE 69; RESP 18; TEMP 98.2; O2SAT 98
--- NOTE | 2017-09-17 11:45 | SOAPPROG ---
SOAP Progress Note Assessment/Plan: E&M for AML * AML, nl cyto, FLT-3+: Day 26 of 7+3 ([facility]) and midostaurin finished last nigh. Emir Bmbx shows no blasts and appears to be in remission. Can go home today. D /C/c PICC. Will need to f/u with DR. Winn and with BMT (appointment set next week). * Pancytopenia: Platelets recovered. WBC and hgb rising. * Febrile neutropenia: afebrile off abx; * Chronic back pain: Appreciate nsgy input and he is to follow up in a couple of weeks. Judicious ibuprofen for now, which has helped him in the past. Subjective: Back pain better with ibuprofen and stretching exercises. Met with NSGY team yesterday. Objective: Vital Signs Temp Pulse Resp BP Pulse Ox 36.8 C 69 18 104/68 98 09/17/17 09:52 09/17/17 09:52 09/17/17 09:52 09/17/17 09:52 09/17/17 09:52 Laboratory Results 09/17/17 06:19 09/12/17 06:15 09/16/17 09/17/17 09/18/17 05:59 05:59 05:59 Intake Total 850 2900 Output Total 800 Balance 50 2900 PT 14.1 SEC (12.0-15.0) 09/07/17 06:00 INR 1.10 (0.83-1.16) 09/07/17 06:00 Laboratory Tests 09/15/17 09/16/17 09/17/17 06:00 06:15 06:19 WBC 1.67 L 2.50 L 3.17 L Hgb 6.9 L 7.3 L 7.5 L Plt Count 486 H D 623 H D 657 H Absolute Seg Neuts 0.38 L 0.40 L 1.17 L Physical Exam - Physical Exam General Appearance: no apparent distress EENT: pharynx normal Respiratory: lungs clear Cardiac/Chest: regular rate, rhythm ICD10 Worksheet Patient Problems: Problems Problem Status Onset Acute myeloid leukemia Acute Neutropenic fever Acute Pancytopenia due to antineoplastic chemotherapy Acute
--- NOTE | 2017-09-17 11:57 | PDDCSUM ---
Discharge Summary Discharge Summary: 42 yo male admitted for induction. Midostaurin finished last nigh. Emir Bmbx shows no blasts and appears to be in remission. Will need to f/u with DR. Winn and with BMT (appointment set next week Cont Acyclovir and Fluconazole for prophylaxis Cont with pain mgmt. DIAGNOSES: # AML in for induction, # neutropenic fever, resolved # pancytopenia, improving -no indications for any transfusion -platelets and WBC cont to improve -abx were stopped on 09/15 # positive IgM for CMV but DNA test negative #Acute on Chronic back pain with MRI ? early compression fracture: NS evaluated the pt and felt that compression fracture not likely. He will f/u with them ( Dr. Chou) in 2-3 weeks -no radiculopathy or leg weakness Exam: NAD AAOX3 RRR CTA B S/NT/ND NO LE EDEMA MEDS: SEE MED REC F/U: PER ABOVE TOTAL TIME SPENT ON DISCHARGE IS 35 MINUTES. D/W ONCOLOGY
--- NOTE | 2017-09-17 15:56 | ASDISCHSUM ---
Discharge Information Plan Status:Home with No Needs Medically Cleared to Leave:09/16/2017 Discharge Date:09/17/2017 01:00 PM CM D/C Disposition:Home, Routine, Self-Care ADT D/C Disposition:Home, Routine, Self-Care Projected Discharge Date:09/17/2017 01:00 PM Transportation at D/C:Family Discharge Delay Reason: Follow-Up Date:09/17/2017 01:00 PM Discharge Slot: Final Diagnosis: Placement Information Patient Contact Information Contact Name:INDRA Relationship:Other Address: Work Phone: [facility] Phone: State/[place] Code: Email: Financial Information Financial Class: Primary Plan Desc:[employer]ICA[employer] [place] Primary Plan Number:[id number] Secondary Plan Desc: Secondary Plan Number: Assessment Information [facility] Progress Note CM Note CM Note Notes: Pt admitted with neutropenic 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 Chemo planned. May be here for up to 3-6 weeks. CM will follow for any d/c needs. Date Signed: 08/23/2017 04:30 PM Electronically Signed By:JOSÉ Slade [facility] CM Progress Note CM Note CM Note Notes: Patient here for chemo infusion. Patient not feeling well today to spend time talking. Patient having some adiel C/M contacted Joy regarding Medicaid. 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 Case management will continue to follow. Date Signed: 08/25/2017 04:42 PM Electronically Signed By:JOSÉ Fabian [facility] CM Progress Note CM Note CM Note Notes: Met with pt for support with new dx. Pt interested in more details about his dx. Encouraged him to check out [email or web address] website which has a wide variety of info on AML as well as a local and online support group. Discussed pt's financial concerns.Pt asked to see Sheri, medicaid specialist again. Pt discussed his support system of girlfirend and friends. His family is out of town. Let pt know C/M available if any questions or concerns arise. C/M will follow for DC needs. Date Signed: 08/27/2017 04:45 PM Electronically Signed By:Jazmine Alanis LCSW [facility] CM Progress Note CM Note CM Note Notes: Sheri from [employer] met with pt yesterday and he has been approved for Medicaid. C/M will continie to follow for DC needs. Date Signed: 08/28/2017 02:38 PM Electronically Signed By:Jazmine Alanis LCSW [facility] CM Progress Note CM Note CM Note Notes: Patient still very ill and not open to talking today. Will follow with patient on Thursday to offer support. Case management will follow. Date Signed: 08/31/2017 02:39 PM Electronically Signed By:JOSÉ Fabian [facility] CM Progress Note CM Note CM Note Notes: was asked to see if pt's Medicaid would cover an expensinve chemo drug called Rydapt. Spoke with Lilian at [facility]. Medicaid will cover the drug at 0 cost to pt. Rydapt was ordered. C/M will continue to follow for DC needs. Date Signed: 09/02/2017 03:21 PM Electronically Signed By:Jazmine Alanis LCSW [facility] CM Progress Note CM Note CM Note Notes: 09/05/2017 Case Management Note Spoke w/RN. No new case management d/c needs identified. Case Management d/c poc remains home independent when medically stable with follow up as directed. Date Signed: 09/05/2017 04:31 PM Electronically Signed By:Cynthia Davey RN [facility] CM Progress Note CM Note CM Note Notes: Hospitalist said today that this patient is reaching his [place] and will most likely be here for a week to two weeks more. At that time he will most likely discharge home with no needs. Case management will follow. Date Signed: 09/08/2017 05:24 PM Electronically Signed By:JOSÉ Fabian [facility] CM Progress Note CM Note CM Note Notes: Pt will likely remain inpt for at least one more week. Tentative plan is to get stem cell transplant after DC. It is u nclear if pt will keep PICC line at DC. C/M will follow for DC needs. Date Signed: 09/10/2017 03:43 PM Electronically Signed By:Jazmine Alanis LCSW [facility] CM Progress Note CM Note CM Note Notes: CA tx continues. CM following for possible discharge needs. Date Signed: 09/13/2017 11:00 AM Electronically Signed By:Camila Uriostegui LCSW [facility] CM Progress Note CM Note CM Note Notes: Pt may be ready for DC tomorrow per . His PICC line will be DC'd and he should have no other DC needs. Date Signed: 09/16/2017 03:19 PM Electronically Signed By:Jazmine Alanis LCSW Case Management Discharge Plan Note Case Management Discharge Discharge Order Complete? Answers: Yes Patient to Obtain Answers: Independently Medications Transportation Arranged Answers: Family/Friends Transport will Pick (Date 09/17/2017 12:00 AM & Time) Date Signed: 09/17/2017 01:22 PM Electronically Signed By:JOSÉ Slade Intervention Information
== END 2017-09-17 13:00 | disposition home or self-care (01) | DRG 809 ==
LOC: F1N 14:56
PROVIDERS: ADMIT Internal Medicine; ATTEND Internal Medicine
PROC: 3E03305 Introduction of Other Antineoplastic into Peripheral Vein, Percutaneous Approach (ICD-10-PCS; principal; 2017-08-22)
PROC: 02HV33Z Insertion of Infusion Device into Superior Vena Cava, Percutaneous Approach (ICD-10-PCS; 2017-08-22)
PROC: 30233N1 Transfusion of Nonautologous Red Blood Cells into Peripheral Vein, Percutaneous Approach (ICD-10-PCS; 2017-08-24)
PROC: 30233R1 Transfusion of Nonautologous Platelets into Peripheral Vein, Percutaneous Approach (ICD-10-PCS; 2017-08-31)
PROC: 07DR3ZX Extraction of Iliac Bone Marrow, Percutaneous Approach, Diagnostic (ICD-10-PCS; 2017-09-04)
DX: D70.9 Neutropenia, unspecified (principal); C92.00 Acute myeloblastic leukemia, not having achieved remission; D61.818 Other pancytopenia; G89.29 Other chronic pain; M54.9 Dorsalgia, unspecified; R19.7 Diarrhea, unspecified; R21 Rash and other nonspecific skin eruption; K12.30 Oral mucositis (ulcerative), unspecified; Z72.0 Tobacco use
CPT/HCPCS: 82947-QW; 85060-90; 86644-90; 86645-90; 87497-90; 87536-90; 88184-90; 88185-91; 88237-90; 88262-90; 97161-GP; 97530-GP; A9585; C1751; J0692; J1100; J1200; J2060; J2248; J2405; J2469; J2543; J2997; J3370; J9100; J9211; P9016; P9037; P9040; Q9967; Q9988